=== PATIENT | male | born 1940 | race Caucasian/White ===

== ENCOUNTER 2016-05-05 12:34 | Inpatient (IN) | payer OTHER ==
[~2016-05-05] VITALS: Ht 172.7 cm; Wt 136.3 kg
[2016-05-05] VITALS (7 sets, daily range): BP systolic 131–177; BP diastolic 79–123; PULSE 69–92; TEMP 36.3–36.5; O2SAT 90–98; BMI 45.6
[~2016-05-05 12:34] MED LIST: ALBINS NEB; ASPI-428 PO; DEXT1CAP; ELQ25 PO; FRS/40 PO; ISOS120T5 PO; LIDO5OIN EX; METO50TA7 PO; POTA20TA16 PO; SIMV20TA2 PO; VNTHFA/IN INH
[2016-05-05 13:35] LABS: BASO % 0.3 %; BASO ABS # 0.04 K/uL (0-0.2); COMPLETE YES; EOS % 0.9 %; HEMATOCRIT 46.3 % (42-52); IG% 0.5 %; LYMPH % 9.7 %; LYMPH ABS # 1.13 K/uL (1.2-3.4); MEAN CELL VOLUME 90.6 fL (80-100); MEAN CORPUSCULAR HGB CONC 30.9 g/dl (32-36); MEAN PLATELET VOLUME 9.4 fL (7.4-10.4); MONO % 6.5 %; NEUT % 82.1 %; PLATELET COUNT 207 K/uL (130-400); RED BLOOD COUNT 5.11 M/uL (4.7-6.1); WHITE BLOOD COUNT 11.64 K/uL (4.8-10.8)
--- NOTE | 2016-05-05 13:44 | DIAGNOSTIC IMAGING REPORT ---
CHEST ONE VIEW PORTABLE CLINICAL HISTORY: Shortness of breath. Respiratory distress. COMPARISON STUDY: Chest radiograph February 17, 2016. FINDINGS: Lung volumes are diminished. There is no pneumothorax. Note is made of bilateral pleural effusions, right larger than left. There are associated bibasilar opacities. Right perihilar opacity is present. There is pulmonary vascular congestion with pulmonary edema. IMPRESSION: 1. Findings suggestive of pulmonary edema. 2. Small to moderate right and small left pleural effusions. 3. Bibasilar and right perihilar opacities. Pulmonary edema or atelectasis is favored although consolidation could appear similar. Electronically signed by: Blair Arias M.D. 05/05/2016 1:43 PM Dictated Date/Time: 05/05/2016 1:41 PM
[2016-05-05] MEDS ORDERED: FUROSEMIDE 40 MG/4 ML VIAL IV STA ×2 (13:58→14:09)
[2016-05-05] MEDS ORDERED: FLUT1INH INH (14:08)
--- NOTE | 2016-05-05 14:13 | EMERGENCY ROOM VISIT NOTE ---
History Report prepared by Sary: Nery Williamson Under the Supervision of: Dr. Chhaya Zhu M.D. First contact with patient: 13:58 Chief Complaint: RESPIRATORY PROBLEMS Stated Complaint: RESPIRATORY DISTRESS Nursing Triage Summary: Pt brought in via ambulance ALS from Dr. Rizzo's office. The pt was seeing Dr. Rizzo's PA for an exacerbation of his respiratory issues. Pt has a history of COPD and CHF. Dr. Rizzo's PA called 911 for acute respiratory distress. The pt was very short of breath with exertion and pulse ox was 88 on 3lpm. The PA noted that there is also an increase in the pts bilateral lower extremity edema. Pt told EMS that he noticed that its been harder to breath the last 3 days. Pt stated that he becomes very short of breath with walking. The pt also stated that he has had a productive cough for the last week. Pt wears 3 lpm of oxygen at home. Pt denies any nausea/vomiting/diarrhea. Pts vitals were stable en route. History of Present Illness The patient is a 75 year old male who presents to the Emergency Room via ALS from Dr. Rizzo's office with complaints of worsening shortness of breath over the past 3 days. His breathing difficulties are worse with exertion. He also becomes lightheaded with exertion. He has had an increased cough over the past week. The patient has a history of CHF and COPD and is on 3L oxygen at home. He typically cannot lay flat. The patient was initially seen by a PA at Dr. Rizzo 's office this afternoon for his symptoms and he was referred to the ED because he was hypoxic. His pulse ox was 88 on 3L oxygen. He also seemed to have increased bilateral lower extremity swelling. Per patient's , the patient had a fever 3 days ago. He takes baby aspirin daily. He denies chest pain or other complaints. Source of History: patient Onset: 3 days ago Position: other (respiratory ) Timing: worsening Modifying Factors (Worsening): exertion Associated Symptoms: + cough, No chest pain Note: Other symptoms: lightheadedness, lower extremity swelling Review of Systems See HPI for pertinent positives & negatives. A total of 10 systems reviewed and were otherwise negative. Past Medical & Surgical Medical Problems: (1) Atrial fibrillation (2) CHF (congestive heart failure) (3) CHF exacerbation (4) COPD (chronic obstructive pulmonary disease) (5) Hyperlipidemia (6) Myocardial infarction (7) Pneumonia Family History Diabetes mellitus Hypertension Kidney disease Social History Smoking Status: Former Smoker Drug Use: none Marital Status: Occupation Status: disabled Current/Historical Medications Scheduled Albuterol Hfa (Ventolin Hfa), 2 PUFFS INH Q4 Albuterol Sulf (Albuterol Sulfate), NEB Q4 Apixaban (Eliquis), 2.5 MG PO BID Aspirin (Ecotrin Low Strength), 1 TAB PO DAILY Fluticasone Furoate-Vilanterol (Breo Ellipta), 1 PUFF INH DAILY Furosemide (Lasix), 80 MG PO DAILY Isosorbide Mononitrate Ext Rel (Imdur Ext Rel), 120 MG PO QAM Lidocaine (Lidocaine Guille), 5 % EX DIRECTED Metoprolol Succ (Toprol Xl) (Toprol-Xl), 1 TAB PO DAILY Potassium Ext Rel (Klor-Con), 10 MEQ PO DAILY Simvastatin (Zocor), 1 TAB PO DAILY Allergies Coded Allergies: No Known Allergies (Unverified , 05/05/16) Physical Exam Vital Signs Date Time Temp Pulse Resp B/P Pulse Ox O2 Delivery O2 Flow Rate FiO2 05/05/16 13:00 94 Nasal Cannula 4.0 05/05/16 12:57 36.8 64 26 175/88 91 Nasal Cannula 3.0 05/05/16 12:53 70 05/05/16 12:51 Nasal Cannula 3.0 91 Physical Exam Vital signs reviewed. General: Malodorous and disheveled 75 year old male, obese, in no significant distress, on nasal canula oxygen. HEENT: No scleral icterus, PERRLA, neck supple. Atraumatic. Cardiovascular: Regular rate and rhythm, no extra sounds. Pulmonary: Crackles at the bases to auscultation bilaterally, normal work of breathing. Abdomen: Soft, nontender, nondistended, positive bowel sounds, large abdominal hernia. Musculoskeletal: Atraumatic, no peripheral edema. Neurologic: Patient awake alert and oriented x 3, full strength in all 4 extremities. Cranial nerves 2 through 12 grossly intact. Skin: Warm, dry, no rash Medical Decision & Procedures ER Provider Diagnostic Interpretation: Radiology results as stated below per my review and radiologist interpretation: CHEST ONE VIEW PORTABLE CLINICAL HISTORY: Shortness of breath. Respiratory distress. COMPARISON STUDY: Chest radiograph February 17, 2016. FINDINGS: Lung volumes are diminished. There is no pneumothorax. Note is made of bilateral pleural effusions, right larger than left. There are associated bibasilar opacities. Right perihilar opacity is present. There is pulmonary vascular congestion with pulmonary edema. IMPRESSION: 1. Findings suggestive of pulmonary edema. 2. Small to moderate right and small left pleural effusions. 3. Bibasilar and right perihilar opacities. Pulmonary edema or atelectasis is favored although consolidation could appear similar. Electronically signed by: Blair Arias M.D. 05/05/2016 1:43 PM Dictated Date/Time: 05/05/2016 1:41 PM Laboratory Results Test 05/05/16 13:20 05/05/16 13:28 Estimated Average Glucose 114 mg/dl Hemoglobin A1c 5.6 % (4.5-5.6) Total Bilirubin 1.1 mg/dl (0.2-1) Aspartate Amino Transf (AST/SGOT) 15 U/L (15-37) Alanine Aminotransferase (ALT/SGPT) 18 U/L (12-78) Alkaline Phosphatase 111 U/L (45-117) Total Protein 6.7 gm/dl (6.4-8.2) Albumin 2.7 gm/dl (3.4-5.0) Globulin 4.0 gm/dl (2.5-4.0) Albumin/Globulin Ratio 0.7 (0.9-2) Bedside Troponin I 0.020 ng/ml (0-0.045) Laboratory results per my review. Medications Administered Medications (Trade) Dose Ordered Sig/Veronica Route Start Time Stop Time Status Last Admin Dose Admin Furosemide (Lasix Inj) 40 mg NOW STAT IV 05/05/16 13:58 05/05/16 13:59 DC 05/05/16 13:58 40 MG ECG Indication: SOB/dyspnea Rate (beats per minute): 64 Rhythm: other (likely sinus rhythm) Findings: 1st degree AV block, Q waves (Inferior), no ectopy ED Course 1400: Past medical records reviewed. The patient was evaluated in room C10. A complete history and physical examination was performed. I discussed laboratory and radiographic results with the patient. He verbalized agreement of the treatment plan. 1409: Ordered Lasix Inj 40 mg IV x2. 1410: I discussed the case with Dr. Swanson - [facility] [place] [facility]. The patient will be evaluated for further management. Medical Decision Differential diagnosis: Etiologies such as infections, reactive airway disease, pneumonia, pneumothorax , COPD, CHF, cardiac ischemia, pulmonary embolism, musculoskeletal, gastrointestinal, as well as others were entertained. This patient was evaluated and appeared to be in no significant distress. IV access was obtained and laboratory work was drawn. The patient is found to have some congestive failure. He was given IV Lasix 40 mg. EKG reveals a first -degree AV block with old ischemic injury, no acute injury. Laboratory work reveals a creatinine of 2.3. Patient has long-standing COPD and CHF. Multiple comorbidities otherwise. He will be evaluated by the hospitalist service for further management. He and his are aware of the plan and agree. Consults Time Called: 1405 Consulting Physician: Dr. Kiki Lagunas [facility] [place] Returned Call: 1410 I discussed the case with him. The patient will be evaluated for further management. Impression Primary Impression: CHF (congestive heart failure) Scribe Attestation The scribe's documentation has been prepared under my direction and personally reviewed by me in its entirety. I confirm that the note above accurately reflects all work, treatment, procedures, and medical decision making performed by me. Departure Information Dispostion Being Evaluated By Hospitalist Referrals Umang Rizzo M.D. (PCP) Patient Instructions My [facility] Problem Qualifiers Primary Impression: CHF (congestive heart failure) Congestive heart failure type: unspecified congestive heart failure type Congestive heart failure chronicity: acute Qualified Codes: I50.9 - Heart failure, unspecified
[2016-05-05] MEDS ORDERED: ONDANSETRON INJ 2 MG/ML 2 ML VIAL IV PRN (14:30)
[2016-05-05] MEDS ORDERED: ACETAMINOPHEN 325 MG TAB PO PRN (14:30)
[2016-05-05] MEDS ORDERED: NITROGLYCERIN 0.4 MG SL PER TAB CHARGE SL PRN (14:30)
[2016-05-05] MEDS ORDERED: ZOLPIDEM TARTRATE 5 MG TAB PO PRN (14:30)
[2016-05-05 14:57] LABS: ALB/GLOB RATIO 0.7 (0.9-2); BUN/CREATININE RATIO 15.5 (10-20); CALCIUM 8.9 mg/dl (8.5-10.1); CREATININE 2.3 mg/dl (0.60-1.40); POTASSIUM 4.4 mmol/L (3.5-5.1)
[2016-05-05] MEDS ORDERED: LEVALBUTEROL/IPRATROPIUM NEB INH SCH (15:00)
[2016-05-05] MEDS ORDERED: VANCOMYCIN INJ 2,000 MG in SODIUM CHLORIDE 0.9% 500ML 500 ML IV SCH (15:30)
--- NOTE | 2016-05-05 15:52 | Pharmacy Progress Note ---
Pharmacy Antibiotic Consult Date of Service: May 05, 2016. Pharmacy Dosing Scope Pharmacy is consulted to initiate vancomycin, Zosyn, and Levaquin IV dosing therapy, order appropriate labs and adjust drug dose/frequency. Subjective The patient is a 75 year old male admitted on 05/05/16 with extreme shortness of breath, several day hx of productive cough. Hx of COPD & CHF. Objective Height (Feet): 5 Height (Inches): 8.00 Weight (Kilograms): 136.000 Lab Results (24hrs): Laboratory Tests Test 05/05/16 13:20 BUN/Creatinine Ratio 15.5 Blood Urea Nitrogen 36 mg/dl Creatinine 2.30 mg/dl White Blood Count 11.64 K/uL Red Blood Count 5.11 M/uL Hemoglobin 14.3 g/dL Hematocrit 46.3 % Mean Corpuscular Volume 90.6 fL Mean Corpuscular Hemoglobin 28.0 pg Mean Corpuscular Hemoglobin Concent 30.9 g/dl Platelet Count 207 K/uL Mean Platelet Volume 9.4 fL Neutrophils (%) (Auto) 82.1 % Lymphocytes (%) (Auto) 9.7 % Monocytes (%) (Auto) 6.5 % Eosinophils (%) (Auto) 0.9 % Basophils (%) (Auto) 0.3 % Neutrophils # (Auto) 9.54 K/uL Lymphocytes # (Auto) 1.13 K/uL Monocytes # (Auto) 0.76 K/uL Eosinophils # (Auto) 0.11 K/uL Basophils # (Auto) 0.04 K/uL Assessment & Plan Pt brought in via ambulance ALS from Dr. Rizzo's office. The pt was seeing Dr. Rizzo's PA for an exacerbation of his respiratory issues. Pt has a history of COPD and CHF. The pt was very short of breath with exertion and pulse ox was 88 on 3lpm. Bilateral pleural effusions on chest x-ray. Vancomycin: will load conservatively due to poor renal fx and obtain random level with am labs. Further dosing after that. Loading dose: 2000 mg IV X 1 dose (~15mg/kg) Goal peak level estimate: between 30 - 40 mcg/mL. Goal trough level estimate: between 15 - 20 mcg/mL for lung penetration. Random level has been ordered for: 05/06 w/ AM labs. Zosyn 4.5gm IV q 8 hrs extended infusion for BMI > 35kg/m2. Levaquin 750mg IV q 48h for CrCl 20-49ml/min. Pharmacy will continue to follow and will adjust dose/frequency as necessary. Thank you
[2016-05-05] MEDS ORDERED: LEVOFLOXACIN CONSULT ACTIVE PRN (16:00)
[2016-05-05] MEDS ORDERED: PIPERACILL/TAZOBAC CONSULT ACTIVE PRN (16:00)
[2016-05-05] MEDS ORDERED: VANCOMYCIN CONSULT ACTIVE PRN (16:00)
[2016-05-05] MEDS ORDERED: FUROSEMIDE 40 MG/4 ML VIAL ONE (16:32)
[2016-05-05] MEDS ORDERED: PIPERACILL/TAZOBAC IV 4.5 GM in DEXTROSE 5% 100ML IV ONE (18:00)
[2016-05-05] MEDS ORDERED: LEVOFLOXACIN / D5W 750 MG in PREMIXED IN D5W 150 ML IV SCH (19:00)
[2016-05-05] MEDS: LEVALBUTEROL 1.25MG/0.5ML NEB INH SCH (20:29)
[2016-05-05] MEDS: IPRATROPIUM BROMIDE NEB SOLN 0.02% 2.5 ML VIAL INH SCH (20:29)
--- NOTE | 2016-05-05 20:46 | History and Physical ---
History & Physical Date & Time of Service: May 05, 2016 at 20:33 Chief Complaint: Chf Exacerbation Pneumonia Primary Care Physician: Umang Rizzo M.D. History of Present Illness Source: patient The patient was brought in via ALS from Dr. Rizzo's office where a PA was seeing him and called 911 for acute respiratory distress. His pulse ox reported to be 88% on 3 L at that time and he was very short of breath. The patient reports that he has had a worsening of his lower extremity edema bilaterally and worsening shortness of breath over the past 3 days. He's had a productive cough for the past week, and does wear his nasal cannula 3 L O2 continually at home. He has not had any recent travel, and is not aware of any sick exposures. Past Medical/Surgical History Medical Problems: (1) CHF (congestive heart failure) Status: Chronic (2) COPD (chronic obstructive pulmonary disease) Status: Chronic Family History Diabetes mellitus Hypertension Kidney disease Social History Smoking Status: Former Smoker Smokeless Tobacco Use: No Alcohol Use: none Drug Use: none Marital Status: Housing status: lives with family Occupational Status: retired, disabled Multi-Drug Resistant Organisms History of MDRO: No Allergies Coded Allergies: No Known Allergies (Unverified , 05/05/16) Home Medications Scheduled Albuterol Hfa (Ventolin Hfa), 2 PUFFS INH Q4 Albuterol Sulf (Albuterol Sulfate), NEB Q4 Apixaban (Eliquis), 2.5 MG PO BID Aspirin (Ecotrin Low Strength), 1 TAB PO DAILY Fluticasone Furoate-Vilanterol (Breo Ellipta), 1 PUFF INH DAILY Furosemide (Lasix), 80 MG PO DAILY Isosorbide Mononitrate Ext Rel (Imdur Ext Rel), 120 MG PO QAM Lidocaine (Lidocaine Guille), 5 % EX DIRECTED Metoprolol Succ (Toprol Xl) (Toprol-Xl), 1 TAB PO DAILY Potassium Ext Rel (Klor-Con), 10 MEQ PO DAILY Simvastatin (Zocor), 1 TAB PO DAILY Review of Systems The patient denies vision change, hearing change, sore throat, fevers, chills, sweats, weight change, fatigue, nausea, vomiting, abdominal pain, pelvic pain, blood in urine or stool, dysuria, urinary frequency or urgency, lightheadedness , dizziness, headache, memory loss, rash, abnormal bruising or bleeding, imbalance, focal weakness, numbness or tingling in arms or legs, arthralgias or myalgias, back or neck pain, night sweats, or allergy symptoms. The review of systems is otherwise negative other than for that already noted above, and at least 10 systems have been reviewed. Physical Exam Vital Signs Date Time Temp Pulse Resp B/P Pulse Ox O2 Delivery O2 Flow Rate FiO2 05/05/16 18:51 36.3 82 20 153/79 94 Nasal Cannula 3.0 05/05/16 18:39 153/79 05/05/16 18:32 36.5 92 17 131/86 98 Room Air 05/05/16 17:10 36.3 82 20 177/123 94 Nasal Cannula 3.0 05/05/16 17:03 36.8 67 16 175/88 92 05/05/16 14:48 67 16 175/88 92 Room Air 05/05/16 13:00 94 Nasal Cannula 4.0 05/05/16 12:57 36.8 64 26 175/88 91 Nasal Cannula 3.0 05/05/16 12:53 70 05/05/16 12:51 Nasal Cannula 3.0 91 The patient is awake, well-developed and adequately nourished, alert and oriented 3, normocephalic and atraumatic, lying in bed and in no acute distress after receiving treatment in the ED. HEENT--PERRL, EOMI, mucous membranes and oropharynx dry. Neck--supple, no JVD or bruits, thyroid normal, trachea midline, no adenopathy. Heart--normal S1 and S2, no extra beats, no murmurs, rubs or gallops. Lungs--wheezes and rhonchi bilaterally, mild respiratory distress, no accessory muscle use. Abdomen--normal bowel sounds and soft, nontender and nondistended, no hernias or masses, no organomegaly. Morbidly obese. Extremities--no cyanosis, clubbing. There is bilaterally pretibial 2+ pitting Edema. There are good distal pulses b/l. Dermatologic--chronic venous stasis changes bilateral lower extremities Neurologic--cranial nerves II through XII grossly intact, motor and sensory examination normal. Rheumatologic--normal range of motion, nontender, muscles and joints for age Psychiatric--normal affect. Diagnostics Laboratory Results Results Past 24 Hours Test 05/05/16 13:20 05/05/16 13:28 05/05/16 19:17 Range/Units White Blood Count 11.64 4.8-10.8 K/uL Red Blood Count 5.11 4.7-6.1 M/uL Hemoglobin 14.3 14.0-18.0 g/dL Hematocrit 46.3 42-52 % Mean Corpuscular Volume 90.6 80-100 fL Mean Corpuscular Hemoglobin 28.0 25-34 pg Mean Corpuscular Hemoglobin Concent 30.9 32-36 g/dl Platelet Count 207 130-400 K/uL Mean Platelet Volume 9.4 7.4-10.4 fL Neutrophils (%) (Auto) 82.1 % Lymphocytes (%) (Auto) 9.7 % Monocytes (%) (Auto) 6.5 % Eosinophils (%) (Auto) 0.9 % Basophils (%) (Auto) 0.3 % Neutrophils # (Auto) 9.54 1.4-6.5 K/uL Lymphocytes # (Auto) 1.13 1.2-3.4 K/uL Monocytes # (Auto) 0.76 0.11-0.59 K/uL Eosinophils # (Auto) 0.11 0-0.5 K/uL Basophils # (Auto) 0.04 0-0.2 K/uL RDW Standard Deviation 50.1 36.4-46.3 fL RDW Coefficient of Variation 15.1 11.5-14.5 % Immature Granulocyte % (Auto) 0.5 % Immature Granulocyte # (Auto) 0.06 0.00-0.02 K/uL Sodium Level 147 136-145 mmol/L Potassium Level 4.4 3.5-5.1 mmol/L Chloride Level 105 98-107 mmol/L Carbon Dioxide Level 40 21-32 mmol/L Anion Gap 2.0 3-11 mmol/L Blood Urea Nitrogen 36 7-18 mg/dl Creatinine 2.30 0.60-1.40 mg/dl Est Creatinine Clear Calc Drug Dose 38.0 ml/min Estimated GFR () 31.3 Estimated GFR (Non- 27.0 BUN/Creatinine Ratio 15.5 10-20 Random Glucose 95 70-99 mg/dl Calcium Level 8.9 8.5-10.1 mg/dl Total Bilirubin 1.1 0.2-1 mg/dl Aspartate Amino Transf (AST/SGOT) 15 15-37 U/L Alanine Aminotransferase (ALT/SGPT) 18 12-78 U/L Alkaline Phosphatase 111 45-117 U/L Total Protein 6.7 6.4-8.2 gm/dl Albumin 2.7 3.4-5.0 gm/dl Globulin 4.0 2.5-4.0 gm/dl Albumin/Globulin Ratio 0.7 0.9-2 Bedside Troponin I 0.020 0-0.045 ng/ml Bedside Glucose 274 70-99 mg/dl Microbiology Results 05/05/16 MRSA DNA Surveillance Screen - Final, Complete Specimen Negative for MRSA by DNA Probe Diagnostic Radiology Patient Name: ISAURA DICKINSON Unit Number: [id number] Dictated: 05/05/161340 Transcribed: 05/05/161340 JA Printed Date/Time: [~ rep prt dt]/[~ rep prt tm] [~ rep ct labl] - [~ rep ct ivnm] [facility] [place] [address] Dictated: 05/05/161340 Transcribed: 05/05/161340 JA Printed Date/Time: [~ rep prt dt]/[~ rep prt tm] [~ rep ct labl] - [~ rep ct ivnm] CHEST ONE VIEW PORTABLE CLINICAL HISTORY: Shortness of breath. Respiratory distress. COMPARISON STUDY: Chest radiograph February 17, 2016. FINDINGS: Lung volumes are diminished. There is no pneumothorax. Note is made of bilateral pleural effusions, right larger than left. There are associated bibasilar opacities. Right perihilar opacity is present. There is pulmonary vascular congestion with pulmonary edema. IMPRESSION: 1. Findings suggestive of pulmonary edema. 2. Small to moderate right and small left pleural effusions. 3. Bibasilar and right perihilar opacities. Pulmonary edema or atelectasis is favored although consolidation could appear similar. Electronically signed by: Blair Arias M.D. 05/05/2016 1:43 PM Dictated Date/Time: 05/05/2016 1:41 PM The status of this report is Signed. Draft = Not yet reviewed or approved by Radiologist. Signed = Reviewed and approved by Radiologist. <AttendingPhy></AttendingPhy> <FamilyPhy>Umang Rizzo M.D.</FamilyPhy> < PrimaryPhy>Umang Rizzo M.D.</PrimaryPhy> <UnitNumber>[id number]</UnitNumber > <VisitNumber>[id number]</VisitNumber> <PatientName>ISAURA DICKINSON</ PatientName> <DateOfBirth>1940</DateOfBirth> <Location>[facility]</Location> < ServiceDate>05/05/16</ServiceDate> <MNE>ESINDI</MNE> <OrderingPhy>ED, PROTOCOL</ OrderingPhy> <OrderingPhyMNE>f rep ord dr tam</OrderingPhyMNE> <DictatingPhyMNE> f rep dict dr tam</DictatingPhyMNE> <CCListMNE>f rep ct mne</CCListMNE> < AdmittingPhyMNE>f pt admit dr tam</AdmittingPhyMNE> <AttendingPhyMNE>f pt attend dr tam</AttendingPhyMNE> <ConsultingPhyMNE>f pt consult dr tam</ConsultingPhyMNE> <FamilyPhyMNE>f pt fam dr tam</FamilyPhyMNE> <OtherPhyMNE>f pt other dr tam</OtherPhyMNE> < PrimaryPhyMNE>f pt prim care dr tam</PrimaryPhyMNE> <ReferringPhyMNE>f pt referring dr tam</ReferringPhyMNE> EKG EKG shows atrial fibrillation at 64 bpm, old inferior wall [place], no change compared to 02/19/2016. Impression Assessment and Plan Acute respiratory failure with hypoxia due to CHF exacerbation, and pneumonia. CHF exacerbation/atrial fibrillation/history of myocardial infarction--the patient will be admitted to the telemetry unit, for serial cardiac enzymes, cardiac rhythm monitoring and a 2-D echocardiogram with Dopplers. We'll continue Eliquis 2.5 mg by mouth twice a day, enteric-coated aspirin 81 mg by mouth daily, Imdur extended release 120 mg by mouth every morning, metoprolol succinate 50 mg by mouth daily. We'll change furosemide 80 mg by mouth daily to 40 mg IV twice a day with first dose today, and we will continue potassium extended release 10 mEq by mouth daily. We'll follow serial BMP and magnesium levels in the a.m. Pneumonia/COPD exacerbation--Vancomycin IV per renal dosing, Zosyn 3.375 mg IV every 8 hours, levofloxacin 500 mg IV every 24 hours, guaifenesin extended release 600 mg by mouth twice a day, nasal cannula 3 L of oxygen titrating to keep pulse ox greater than or equal to 92%., And Xopenex with Atrovent nebulizer to use every 6 hours while awake and every 2 hours when necessary. We will hold albuterol HFA, albuterol nebulizers, and Breo Ellipta. Hypercholesterolemia--continue simvastatin 20 mg by mouth daily. Level of Care Telemetry Advanced Directives Existing Advance Directive: No Existing Living Will: No Existing Power of Purchasing Analyst: No Resuscitation Status FULL RESUSCITATION VTE Prophylaxis VTE Risk Assessment Done? Y/N: Yes Risk Level: Moderate
[2016-05-05] MEDS ORDERED: INSULIN GLARGINE PER UNIT 5 UNITS in SYRINGE 0 ML SC STA (20:48)
[2016-05-05] MEDS ORDERED: DEXTROSE 50% 50 ML SYR IV PRN (21:15)
[2016-05-05] MEDS ORDERED: GLUCOSE 40% GEL 15 GM TUBE PO PRN (21:15)
[2016-05-05] MEDS ORDERED: GLUCOSE 10 TABS/TUBE PO PRN (21:15)
[2016-05-05] MEDS ORDERED: GLUCAGON FOR INJ 1 MG VIAL SQ PRN (21:15)
[2016-05-05] MEDS: FUROSEMIDE INJ 40 MG in SYRINGE 0 ML IV SCH (21:28)
[2016-05-05] MEDS: GUAIFENESIN 600 MG TABCR PO SCH (21:29)
[2016-05-05] MEDS: APIXABAN 2.5 MG TAB PO SCH (21:29)
[2016-05-05] MEDS: INSULIN ASPART 100 UNITS/ML 3 ML PEN SC SCH (21:30)
[2016-05-06] VITALS (12 sets, daily range): BP systolic 112–171; BP diastolic 72–86; PULSE 55–92; TEMP 36.4–36.8; O2SAT 90–96; Ht 172.7 cm; Wt 136.3 kg
[2016-05-06] MEDS: PIPERACILL/TAZOBAC IV 4.5 GM in DEXTROSE 5% 100ML 100 ML IV SCH ×2 (00:09→08:24)
[2016-05-06] MEDS: IPRATROPIUM BROMIDE NEB SOLN 0.02% 2.5 ML VIAL INH SCH ×4 (01:25→19:13)
[2016-05-06] MEDS: LEVALBUTEROL 1.25MG/0.5ML NEB INH SCH ×4 (01:25→19:13)
[2016-05-06 04:42] LABS: BASO % 0.4 %; BASO ABS # 0.04 K/uL (0-0.2); COMPLETE YES; EOS % 1.2 %; HEMATOCRIT 43.3 % (42-52); IG% 0.4 %; LYMPH % 4.3 %; LYMPH ABS # 0.47 K/uL (1.2-3.4); MEAN CELL VOLUME 91.2 fL (80-100); MEAN CORPUSCULAR HEMOGLOBIN 28.2 pg (25-34); MEAN CORPUSCULAR HGB CONC 30.9 g/dl (32-36); MEAN PLATELET VOLUME 8.8 fL (7.4-10.4); MONO % 5.9 %; NEUT % 87.8 %; PLATELET COUNT 153 K/uL (130-400); RED BLOOD COUNT 4.75 M/uL (4.7-6.1); WHITE BLOOD COUNT 11.02 K/uL (4.8-10.8)
[2016-05-06 04:52] LABS: INR 1.2 (0.9-1.1); PARTIAL THROMBOPLASTIN RATIO 1.2; PROTHROMBIN TIME (PATIENT) 13.2 SECONDS (9.0-12.0)
[2016-05-06 04:59] LABS: BUN/CREATININE RATIO 15.5 (10-20); CALCIUM 8.3 mg/dl (8.5-10.1); CREATININE 2.5 mg/dl (0.60-1.40); MAGNESIUM 2.3 mg/dl (1.8-2.4); POTASSIUM 4.1 mmol/L (3.5-5.1)
[2016-05-06 06:25] LABS: ESTIMATED AVERAGE GLUCOSE 114 mg/dl; HA1C FLAG Normal (Normal)
--- NOTE | 2016-05-06 07:50 | Clinical Documentation Query ---
CLINICAL DOCUMENTATION QUERY 75-y/o male who presents with CHF exacerbation, COPD exacerbation, and pneumonia. Query #1/2 In your clinical opinion is this patient being managed for: ( ) Acute on chronic diastolic (preserved EF) heart failure treated with IV Lasix ( ) Other explanation of clinical findings (Please Explain) ( ) Unable to determine (Please Define) ( ) Need to Discuss ( X ) Not Agree The medical record reflects the following clinical findings, treatment, and risk factors. Clinical Indicators: CHF exacerbation per H&P. Old records from 02/09/16 stated patient has diastolic dysfunction. The medical record documentation is now expected to include definitive and explicit description of the patient's heart failure; vague terms such as "heart failure," ventricular dysfunction," and "CHF" may not fully capture the physician's intended level of severity. Treatment: IV Lasix, telemetry, I/O's, daily weights, ECG's, Cardiac markers, Risk Factors: Age, diastolic dysfunction per 02/19/16 cardiology summary of Echo of same day. Query #2/2 In your clinical opinion is this patient being managed for: ( ) Chronic hypoxic respiratory failure ( ) Other explanation of clinical findings (Please Explain) ( ) Unable to determine (Please Define) ( ) Need to Discuss ( X ) Not Agree The medical record reflects the following clinical findings, treatment, and risk factors. Clinical Indicators: acute respiratory failure on admission. Wears home O2 at 3L. Treatment: Continued on O2 Risk Factors: Age, COPD, CHF and underlying pneumonia. Please clarify and document your clinical opinion in the progress notes and discharge summary. Terms such as "probable", "suspected", "likely", "questionable", "possible", or "still to be ruled out" are acceptable. IF IN AGREEMENT, YOU MUST DOCUMENT ABOVE DIAGNOSTIC STATEMENT IN DAILY PROGRESS NOTES AND DISCHARGE SUMMARY. This document is not part of the patient's record. Thank You, Valeriano Bills, RN [phone]
[2016-05-06] MEDS: POTASSIUM CHLORIDE 10 MEQ TABCR PO SCH (08:25)
[2016-05-06] MEDS: ASPIRIN 81 MG ECTAB PO SCH (08:25)
[2016-05-06] MEDS: ISOSORBIDE MONONITRATE 60 MG TABCR PO SCH (08:26)
[2016-05-06] MEDS: SIMVASTATIN 20 MG TAB PO SCH (08:26)
[2016-05-06] MEDS: GUAIFENESIN 600 MG TABCR PO SCH ×2 (08:27→21:16)
[2016-05-06] MEDS: INSULIN ASPART 100 UNITS/ML 3 ML PEN SC SCH ×4 (08:32→21:00)
[2016-05-06] MEDS: APIXABAN 2.5 MG TAB PO SCH ×2 (08:33→21:16)
[2016-05-06] MEDS: FUROSEMIDE INJ 40 MG in SYRINGE 0 ML IV SCH (08:51)
[2016-05-06] MEDS ORDERED: METOPROLOL SUCC 50MG EXT REL TAB PO SCH (09:00)
--- NOTE | 2016-05-06 09:41 | Pharmacy Progress Note ---
Pharmacy Antibiotic Prog Note Date of Service: May 06, 2016. Subjective: The patient has currently received Vancomycin 2000 mg (15mg/kg) IV x 1 dose yesterday at 1610. The patient is currently on day # 2 of Vancomycin IV therapy for pulmonary source of infection. MRSA swab negative. Objective: Height (Feet): 5 Height (Inches): 8.00 Weight (Kilograms): 137.200 Levels: Item Value Date Time Random Vancomycin Level 15.8 mcg/ml 05/06/16 0435 Lab Results (24hrs): Laboratory Tests Test 05/05/16 13:20 05/06/16 04:35 BUN/Creatinine Ratio 15.5 15.5 Blood Urea Nitrogen 36 mg/dl 39 mg/dl Creatinine 2.30 mg/dl 2.50 mg/dl White Blood Count 11.64 K/uL 11.02 K/uL Red Blood Count 5.11 M/uL 4.75 M/uL Hemoglobin 14.3 g/dL 13.4 g/dL Hematocrit 46.3 % 43.3 % Mean Corpuscular Volume 90.6 fL 91.2 fL Mean Corpuscular Hemoglobin 28.0 pg 28.2 pg Mean Corpuscular Hemoglobin Concent 30.9 g/dl 30.9 g/dl Platelet Count 207 K/uL 153 K/uL Mean Platelet Volume 9.4 fL 8.8 fL Neutrophils (%) (Auto) 82.1 % 87.8 % Lymphocytes (%) (Auto) 9.7 % 4.3 % Monocytes (%) (Auto) 6.5 % 5.9 % Eosinophils (%) (Auto) 0.9 % 1.2 % Basophils (%) (Auto) 0.3 % 0.4 % Neutrophils # (Auto) 9.54 K/uL 9.69 K/uL Lymphocytes # (Auto) 1.13 K/uL 0.47 K/uL Monocytes # (Auto) 0.76 K/uL 0.65 K/uL Eosinophils # (Auto) 0.11 K/uL 0.13 K/uL Basophils # (Auto) 0.04 K/uL 0.04 K/uL Micro Results: Item Value Date Time MRSA DNA Surveillance Screen - Final Complete 05/05/16 1830 Nasal Specimen Negative for MRSA by DNA Probe Recent Pertinent Medications: Zosyn 4.5g IV Q8H for CrCl > 20ml/min and obese patient Levaquin 750mg IV Q48H for CrCl 20-49ml/min Assessment & Plan: Patient lives with family, no recent travel or encounters with sickness, MRSA negative - possibly deescalation, as patient is also on IV Levaquin and Zosyn. Will follow-up with provider after patient is seen today. This Vancomycin random drug level of 15.8mcg/ml is Therapeutic and patient requires re-dosing. This level was drawn 12 hours after loading dose of 15mg/kg was given. I will start patient on 12.5mg/kg dosing for obesity at Q14H interval , as patient is not yet at steady state and is at risk for accumulation due to obesity, but patient is also at lower end of goal trough range, I would prefer patient to be closer to 20mcg/ml for pulmonary penetration of drug. Start Vancomycin 1700 mg (12.5mg/kg) IV every 14 hours. Goal trough level estimate: between 15 - 20 mcg/mL for pulmonary source. Trough level has been ordered for: prior to 1400 dose. I have also placed this 1400 dose on hold, to ensure trough is evaluated by pharmacist prior to hanging this 4th total dose. This level will be drawn prior to 4th total dose, even if therapeutic, may need to pull back as this may be too aggressive for patient's renal function. Pharmacy will continue to follow and will adjust dose/frequency as necessary. Thank you
[2016-05-06] MEDS ORDERED: VANCOMYCIN INJ 1,700 MG in SODIUM CHLORIDE 0.9% 500ML 500 ML IV SCH (10:00)
[2016-05-06] MEDS ORDERED: FUROSEMIDE INJ 40 MG in SYRINGE 0 ML IV SCH (15:00)
--- NOTE | 2016-05-06 15:43 | Progress Note ---
Subjective Date of Service: May 06, 2016. Subjective Pt evaluation today including: conversation w/ patient, conversation w/ family , physical exam, chart review, lab review, review of studies, review of inpatient medication list Patient reports breathing is improved from yesterday. at bedside. He is a somewhat of a poor historian. reports he was treated in [facility] for pneumonia. She also reports he has been coughing both yellow-thick sputum and whitish/foamy sputum, though he hasn't had a fever. He is not a smoker now, former smoker, but still surrounded by family members who smoke around him. Otherwise, no chest pain, no abd pain, no urinary symptoms. Problem List Medical Problems: (1) CHF (congestive heart failure) Status: Chronic (2) CHF exacerbation Status: Acute Review of Systems All Other Systems: Reviewed and Negative Medications Acetaminophen (Tylenol Tab) 650 mg Q4H PRN PO; Start 05/05/16 at 14:30; Stop 06/04/16 at 14:29 Apixaban (Eliquis Tab) 2.5 mg BID PO Last administered on 05/06/16 08:33; Admin Dose 2.5 MG; Start 05/05/16 at 21:00; Stop 06/04/16 at 20:59 Aspirin (Ecotrin Tab) 81 mg DAILY PO Last administered on 05/06/16 08:25; Admin Dose 81 MG; Start 05/06/16 at 09:00; Stop 06/05/16 at 08:59 Dextrose (Dextrose 50% 50ML Syringe) 25-50ML OF 50% DW IV FOR... UD PRN IV; Start 05/05/16 at 21:15; Stop 06/04/16 at 21:14 Furosemide/Syringe (Lasix Inj/ Syringe) 4 ml @ 4 mls/min BID@0800,1500 IV; Start 05/06/16 at 15:00; Stop 06/05/16 at 14:59 Glucagon 1 mg 1 mg UD PRN SQ; Start 05/05/16 at 21:15; Stop 06/04/16 at 21:14 Glucose (Glucose 40% Gel) 15-30 GRAMS 15 GRAMS... UD PRN PO; Start 05/05/16 at 21:15; Stop 06/04/16 at 21:14 Glucose (Glucose Chew Tab) 4-8 Tablets 4 Tabl... UD PRN PO; Start 05/05/16 at 21:15; Stop 06/04/16 at 21:14 Guaifenesin (Mucinex Contr Rel Tab) 600 mg BID PO Last administered on 08:27; Admin Dose 600 MG; Start 05/05/16 at 21:00; Stop 06/04/16 at 20:59 Insulin Aspart (novoLOG ASPART) SLIDING SCALE G... ACHS SC; Start at 21:00; Stop 06/04/16 at 20:59 Ipratropium [place] (Atrovent 0.02% 0.5MG/2.5ML Neb) 0.5 mg Q6R INH Last administered on 05/06/16 14:33; Admin Dose 0.5 MG; Start 05/05/16 at 15:00; Stop 06/04/16 at 14:59 Isosorbide Mononitrate (Imdur Ext Rel Tab) 120 mg QAM PO Last administered on 08:26; Admin Dose 120 MG; Start 05/06/16 at 09:00; Stop 06/05/16 at 08: 59 Levalbuterol (Xopenex 1.25MG/ 0.5ML Neb) 1.25 mg Q6R INH Last administered on 14:33; Admin Dose 1.25 MG; Start 05/05/16 at 15:00; Stop 06/04/16 at 14: 59 Levofloxacin (Consult) 1 ea UD PRN N/A; Start 05/05/16 at 16:00; Stop 06/04/16 at 15:59 Levofloxacin 750 mg/Prmx 150 ml @ 100 mls/hr Q48H IV; Start 05/07/16 at 19:00; Stop 05/11/16 at 18:59 Metoprolol Succinate (Toprol Xl Tab) 50 mg DAILY PO Last administered on 08:26; Admin Dose 50 MG; Start 05/06/16 at 09:00; Stop 06/05/16 at 08:59 Nitroglycerin 0.4 mg 0.4 mg UD PRN SL; Start 05/05/16 at 14:30; Stop 06/04/16 at 14:29 Ondansetron HCl (Zofran Inj) 4 mg Q6H PRN IV; Start 05/05/16 at 14:30; Stop at 14:29 Piperacillin Sod/ Tazobactam Sod (Consult) 1 ea UD PRN N/A; Start 05/05/16 at 16:00; Stop 06/04/16 at 15:59 Piperacillin Sod/ Tazobactam Sod/ Dextrose (Zosyn Iv/D5 100ml) 120 ml @ 30 mls/ hr Q8H IV Last administered on 05/06/16 08:24; Admin Dose 30 MLS/HR; Start at 00:00; Stop 05/12/16 at 23:59 Potassium Chloride (Klor-Con M10) 10 meq DAILY PO Last administered on 08:25; Admin Dose 10 MEQ; Start 05/06/16 at 09:00; Stop 06/05/16 at 08:59 Simvastatin (Zocor Tab) 20 mg DAILY PO Last administered on 05/06/16 08:26; Admin Dose 20 MG; Start 05/06/16 at 09:00; Stop 06/05/16 at 08:59 Zolpidem Tartrate (Ambien Tab) 5 mg HSZ PRN PO; Start 05/05/16 at 14:30; Stop 06/04/16 at 14:29 Objective Vital Signs Date Time Temp Pulse Resp B/P Pulse Ox O2 Delivery O2 Flow Rate FiO2 05/06/16 14:34 55 16 93 Nasal Cannula 3.0 05/06/16 12:00 Nasal Cannula 3.0 05/06/16 11:47 36.4 64 20 130/86 96 3.0 05/06/16 08:30 70 123/72 05/06/16 08:00 91 Nasal Cannula 3.0 05/06/16 07:48 36.7 63 18 171/79 91 3.0 05/06/16 07:27 84 16 91 Nasal Cannula 3.0 05/06/16 04:31 36.7 92 22 150/85 90 Nasal Cannula 3.0 05/06/16 01:25 88 16 95 Nasal Cannula 3.5 05/05/16 23:34 Nasal Cannula 3.0 05/05/16 23:29 36.4 69 18 152/92 90 05/05/16 20:35 86 16 95 Nasal Cannula 2.0 05/05/16 20:10 Nasal Cannula 3.0 05/05/16 18:51 36.3 82 20 153/79 94 Nasal Cannula 3.0 05/05/16 18:39 153/79 05/05/16 18:32 36.5 92 17 131/86 98 Room Air 05/05/16 17:30 94 Nasal Cannula 3.0 05/05/16 17:10 36.3 82 20 177/123 94 Nasal Cannula 3.0 05/05/16 17:03 36.8 67 16 175/88 92 Physical Exam Comments: nad, sitting up in chair upright no acute cardiorespiratory distress irreg irreg, no murmurs appreciated diminished breath sounds without rhonchi, minimal basilar rales abd soft nt/nd +BS 1+ LE edema b/l cn 2-12 grossly intact Laboratory Results Last 24 Hours Test 05/05/16 19:17 05/05/16 21:18 05/06/16 04:35 05/06/16 07:25 Bedside Glucose 274 mg/dl 114 mg/dl 79 mg/dl White Blood Count 11.02 K/uL Red Blood Count 4.75 M/uL Hemoglobin 13.4 g/dL Hematocrit 43.3 % Mean Corpuscular Volume 91.2 fL Mean Corpuscular Hemoglobin 28.2 pg Mean Corpuscular Hemoglobin Concent 30.9 g/dl Platelet Count 153 K/uL Mean Platelet Volume 8.8 fL Neutrophils (%) (Auto) 87.8 % Lymphocytes (%) (Auto) 4.3 % Monocytes (%) (Auto) 5.9 % Eosinophils (%) (Auto) 1.2 % Basophils (%) (Auto) 0.4 % Neutrophils # (Auto) 9.69 K/uL Lymphocytes # (Auto) 0.47 K/uL Monocytes # (Auto) 0.65 K/uL Eosinophils # (Auto) 0.13 K/uL Basophils # (Auto) 0.04 K/uL RDW Standard Deviation 50.2 fL RDW Coefficient of Variation 15.2 % Immature Granulocyte % (Auto) 0.4 % Immature Granulocyte # (Auto) 0.04 K/uL Prothrombin Time 13.2 SECONDS Prothromb Time International Ratio 1.2 Activated Partial Thromboplast Time 32.0 SECONDS Partial Thromboplastin Ratio 1.2 Sodium Level 147 mmol/L Potassium Level 4.1 mmol/L Chloride Level 104 mmol/L Carbon Dioxide Level 40 mmol/L Anion Gap 3.0 mmol/L Blood Urea Nitrogen 39 mg/dl Creatinine 2.50 mg/dl Est Creatinine Clear Calc Drug Dose 35.0 ml/min Estimated GFR () 28.3 Estimated GFR (Non- 24.4 BUN/Creatinine Ratio 15.5 Random Glucose 95 mg/dl Calcium Level 8.3 mg/dl Magnesium Level 2.3 mg/dl Random Vancomycin Level 15.8 mcg/ml Test 05/06/16 11:31 Bedside Glucose 75 mg/dl 06-MAY-2016 07:04:32 [facility] Atrial fibrillation Low voltage QRS Possible Inferior infarct (cited on or before 19-FEB-2016) Abnormal ECG When compared with ECG of 05-MAY-2016 13:32, No significant change was found Confirmed by MITCH QUEVEDO ([id number]) on 05/06/2016 10:54:22 AM Assessment and Plan 1. Acute decompensated diastolic CHF - EF on last echo was normal - will titrate IV lasix to achieve negative fluid balance of about 500-1000 cc / 24 hrs - i/o, daily weights 2. COPD exacerbation - cont xopenex - MRSA screening negative, will stop Vanco - unlikely aspiration or HCAP with no recent admissions, will stop zosyn - cont levaquin 3. Afib - now with bradycardic episodes as low as 34 and apparently some complaints of lightheadedness - will stop metoprolol po for now, will place a prn metoprolol if becomes tachycardic - will obtain cardiology consult - cont eliquis 4. CKD IIIb - likely - will continue to monitor - for now, will manage acute CHF - may need an increased dose of lasix if not having enough urine output - baseline is around 2.0 - check PVR, isidro if >300 cc retention - avoid nephrotoxins such as NSAIDs, non-emergent contrast studies, & hypotension
[2016-05-06] MEDS ORDERED: NURSING VERBAL MED ORDER ONE (17:45)
[2016-05-06] MEDS ORDERED: METOPROLOL TARTRATE 1 MG/ML VIAL IV PRN (18:00)
[2016-05-06] MEDS: MICONAZOLE NITRATE POWDER 43 GM EXT PRN (18:40)
[2016-05-07] VITALS (10 sets, daily range): BP systolic 96–164; BP diastolic 60–96; PULSE 65–96; TEMP 36.3–36.8; O2SAT 93–99
--- NOTE | 2016-05-07 00:49 | CARDIOLOGY CONSULTATION ---
DATE OF CONSULTATION: 05/06/2016 REASON FOR CONSULTATION: Heart failure, bradycardia. CONSULTATION REQUESTED BY: Dr. Calderón. HISTORY OF PRESENT ILLNESS: Mr. Schreiber is a 75-year-old male with a complex past medical history, known to me from the outpatient setting and prior admissions with a cardiac history remarkable for coronary artery disease status post prior [place] , persistent atrial fibrillation and chronic diastolic heart failure, who was readmitted yesterday in the setting of worsening shortness of breath. Hospital course has been complicated by intermittent bradycardia with questionable symptoms with heart rates down to the 30s and 40s. The patient was previously seen by me approximately 2 months ago and was previously admitted 3 months ago. He states that over the last several weeks, he has noticed worsening shortness of breath similar to his prior symptoms with prior heart failure exacerbation. He has also noted worsening lower extremity edema. He denies any precipitating chest pain, palpitations, fevers, chills. Denies any significant change to his diet. Denies any change in his diuretics. Has been weighing himself but states his scale is not working properly. Due to progressive nature of symptoms, he presented to the ED where he was initially mildly hypoxic, requiring 3 liters of oxygen. He was hemodynamically and electrically stable and was admitted to telemetry. The patient received 40 IV lasix with minimal initial diuresis, although the patient does endorse improvement in symptoms today. He was also started on potential IV antibiotics after chest x-ray showed bilateral airspace opacities. PAST MEDICAL HISTORY: 1. Coronary artery disease status post prior [place]. 2. Chronic diastolic heart failure. 3. Paroxysmal atrial fibrillation. 4. Hypertension. 5. Hyperlipidemia. 6. Chronic renal insufficiency, baseline creatinine approximately 2. 7. Obstructive sleep apnea, on CPAP. 8. Questionable obesity-hypoventilation syndrome. 9. Asthma. 10. Depression. 11. Anxiety. FAMILY HISTORY: Multiple second-degree relatives with coronary artery disease. SOCIAL HISTORY: The patient continues to use chewing tobacco. Denies smoking. Denies any heavy alcohol or illicit drugs. Retired and lives with his . CURRENT MEDICATIONS: Include albuterol, aspirin 81, Eliquis 5 mg b.i.d., furosemide 80 mg daily, isosorbide mononitrate 120 mg q.a.m., fluticasone, vilanterol/Breo inhaler, metoprolol succinate 50 mg daily, potassium, simvastatin 20. ALLERGIES: No known drug allergies. REVIEW OF SYSTEMS: A 10-point review of systems was completed and otherwise negative other than listed in the HPI. PHYSICAL EXAMINATION: GENERAL: The patient appears comfortable. He is obese and appears chronically ill but in no acute distress. HEENT: Sclerae are anicteric. Oropharynx is clear. NECK: Supple. JVD is unable to be assessed due to weight and facial hair. LUNGS: With decreased breath sounds at bases bilaterally. CARDIAC: Distant heart sounds, 2/6 systolic ejection murmur heard best at left upper sternal border. ABDOMEN: Soft, nontender, nondistended, with positive bowel sounds. EXTREMITIES: Warm. He has 2+ right greater than left lower extremity edema with signs of chronic venous stasis. He has intact radial pulses. NEUROLOGIC: Grossly nonfocal. PSYCHIATRIC: He is alert and oriented x3. LABORATORY DATA: WBC 11, hemoglobin 13.4, platelets of 153. INR 1.2. Sodium 147, potassium 4.1, BUN 39, creatinine of 2.5, bicarbonate of 40, calcium of 8.3. Initial point of care troponin negative. Chest x-ray showed findings suggestive of pulmonary edema and small to moderate right and small left pleural effusions. EKG showed atrial fibrillation with possible old inferior infarct, ventricular rate of 64, no new dynamic ST changes. Telemetry reviewed periods of Afib with bradycardia with heart rates into the high 30s. Longest ventricular pause a little over 2 seconds. Echocardiogram: Prior echo in 01/2016 showed hyperdynamic LV with EF greater than 70%, moderate concentric LVH, moderate left atrial dilation, mild calcific aortic stenosis, trace AI, trace MR, with normal estimated RA and PA pressures. IMPRESSION AND PLAN: 1. Acute on chronic diastolic heart failure. 2. Acute on chronic renal insufficiency. 3. Persistent atrial fibrillation. 4. Bradycardia. 5. Hypertension. 6. Morbid obesity with obstructive sleep apnea, question obesity-hypoventilation syndrome. 7. Lower extremity edema with chronic venous insufficiency, question lymphedema. The patient is here today with progressive shortness of breath over the last several weeks and findings on imaging suggestive of worsened pulmonary edema consistent with acute heart failure. The patient is a difficult exam to assess volume status today but appears to still be volume up and recommend continued diuresis. Would start lasix 40 mg IV BID. Otherwise, in regard to the patient's bradycardia on telemetry, unclear that truly having any symptoms from his bradycardia and rate is not such that he should require pacemaker consideration at this time. Agree with holding metoprolol for now. If evidence of rapid ventricular response would consider restarting metoprolol at a lower dose. Otherwise, we will continue to follow while in hospital. Please contact with any questions. Thank you for allowing us to participate in the care of this patient. YONATHAN
[2016-05-07] MEDS: IPRATROPIUM BROMIDE NEB SOLN 0.02% 2.5 ML VIAL INH SCH ×4 (02:21→19:14)
[2016-05-07] MEDS: LEVALBUTEROL 1.25MG/0.5ML NEB INH SCH ×4 (02:21→19:14)
[2016-05-07 07:12] LABS: BASO % 0.7 %; BASO ABS # 0.06 K/uL (0-0.2); COMPLETE YES; EOS % 1.9 %; HEMATOCRIT 44.4 % (42-52); IG% 0.5 %; LYMPH % 11.9 %; LYMPH ABS # 1.04 K/uL (1.2-3.4); MEAN CELL VOLUME 91.9 fL (80-100); MEAN CORPUSCULAR HEMOGLOBIN 28.4 pg (25-34); MEAN CORPUSCULAR HGB CONC 30.9 g/dl (32-36); MEAN PLATELET VOLUME 9.1 fL (7.4-10.4); MONO % 7.9 %; NEUT % 77.1 %; PLATELET COUNT 144 K/uL (130-400); RED BLOOD COUNT 4.83 M/uL (4.7-6.1); WHITE BLOOD COUNT 8.74 K/uL (4.8-10.8)
[2016-05-07 07:18] LABS: INR 1.2 (0.9-1.1); PARTIAL THROMBOPLASTIN RATIO 1.3; PROTHROMBIN TIME (PATIENT) 12.7 SECONDS (9.0-12.0)
[2016-05-07 07:39] LABS: BUN/CREATININE RATIO 15.1 (10-20); CALCIUM 8.8 mg/dl (8.5-10.1); CREATININE 2.8 mg/dl (0.60-1.40); MAGNESIUM 2.4 mg/dl (1.8-2.4); POTASSIUM 3.7 mmol/L (3.5-5.1)
[2016-05-07] MEDS: APIXABAN 2.5 MG TAB PO SCH ×2 (08:01→19:51)
[2016-05-07] MEDS: FUROSEMIDE INJ 80 MG in SYRINGE 0 ML IV SCH ×2 (08:01→15:36)
[2016-05-07] MEDS: ASPIRIN 81 MG ECTAB PO SCH (08:02)
[2016-05-07] MEDS: ISOSORBIDE MONONITRATE 60 MG TABCR PO SCH (08:02)
[2016-05-07] MEDS: SIMVASTATIN 20 MG TAB PO SCH (08:02)
[2016-05-07] MEDS: GUAIFENESIN 600 MG TABCR PO SCH ×2 (08:02→19:51)
[2016-05-07] MEDS: INSULIN ASPART 100 UNITS/ML 3 ML PEN SC SCH ×4 (08:03→19:49)
[2016-05-07] MEDS: POTASSIUM CHLORIDE 10 MEQ TABCR PO SCH (08:03)
--- NOTE | 2016-05-07 12:04 | Cardiology Follow-Up ---
Subjective Subjective Date of Service: May 07, 2016. Pt evaluation today including: conversation w/ family, physical exam, chart review, lab review, review of studies, review of inpatient medication list Additional Details: Breathing somewhat improved this morning. Denies chest pain, palpitations No fevers/chills. No other new complaints. Problem List Medical Problems: (1) CHF (congestive heart failure) Status: Chronic (2) CHF exacerbation Status: Acute Review of Systems Constitutional: No chills, No fever Respiratory: + dyspnea on exertion, + shortness of breath Cardiac: + edema, No chest pain, No palpitations Abdomen: No nausea, No pain Male : No dysuria Heme: No abnormal bleeding/bruising Endo: + fatigue Skin: + rash Objective Vital Signs Last Vital Signs Documentation Date Time Temp Pulse Resp B/P Pulse Ox O2 Delivery O2 Flow Rate FiO2 05/07/16 08:00 Nasal Cannula 3.0 05/07/16 07:47 36.3 94 20 164/94 93 05/05/16 12:51 91 Physical Exam: General Appearance: no apparent distress, + obese ENT: hearing grossly normal Respiratory/Chest: no respiratory distress, + decreased breath sounds (at bases bilaterally) Cardiovascular: regular rate, rhythm, no gallop, no JVD, + systolic murmur (2/ 6 systolic murmur) Abdomen: normal bowel sounds, non tender, soft, + pertinent finding (hernia unchanged) Extremities: + swelling (2+ lower extremity edema to knees bilaterally, right > left) Neurologic/Psychiatric: alert, normal mood/affect, oriented x 3 Skin: + rash (chronic venous stasis changes in lower extremities bilaterally) Assessment and Plan 1. Acute on chronic diastolic heart failure. 2. Acute on chronic renal insufficiency. 3. Persistent atrial fibrillation. 4. Bradycardia. 5. Hypertension. 6. Morbid obesity with obstructive sleep apnea, question obesity-hypoventilation syndrome. 7. Lower extremity edema with chronic venous insufficiency, question lymphedema. -- Breathing improved, net positive yesterday but improving diuresis overnight. -- Still with congestion on exam. -- SCr tending up mildly. - Continue IV diuresis today, target negative 500-1L today. Agree with 80 IV BID today and fluid restriction. - Add back toprol xl 25 mg daily if HRs > 100 - Consider addition of amlodipine if BP still in 150-160s. Will follow. Medications: Current Inpatient Medications Medications (Trade) Dose Ordered Sig/Veronica Route Start Time Stop Time Status Last Admin Dose Admin Acetaminophen (Tylenol Tab) 650 mg Q4H PRN PO 05/05/16 14:30 06/04/16 14:29 Zolpidem Tartrate (Ambien Tab) 5 mg HSZ PRN PO 05/05/16 14:30 06/04/16 14:29 Nitroglycerin (Nitrostat Tab) 0.4 mg UD PRN SL 05/05/16 14:30 06/04/16 14:29 Ondansetron HCl (Zofran Inj) 4 mg Q6H PRN IV 05/05/16 14:30 06/04/16 14:29 Guaifenesin (Mucinex Contr Rel Tab) 600 mg BID PO 05/05/16 21:00 06/04/16 20:59 05/07/16 08:02 600 MG Apixaban (Eliquis Tab) 2.5 mg BID PO 05/05/16 21:00 06/04/16 20:59 05/07/16 08:01 2.5 MG Aspirin (Ecotrin Tab) 81 mg DAILY PO 05/06/16 09:00 06/05/16 08:59 05/07/16 08:02 81 MG Isosorbide Mononitrate (Imdur Ext Rel Tab) 120 mg QAM PO 05/06/16 09:00 06/05/16 08:59 05/07/16 08:02 120 MG Potassium Chloride (Klor-Con M10) 10 meq DAILY PO 05/06/16 09:00 06/05/16 08:59 05/07/16 08:03 10 MEQ Simvastatin (Zocor Tab) 20 mg DAILY PO 05/06/16 09:00 06/05/16 08:59 05/07/16 08:02 20 MG Ipratropium [place] (Atrovent 0.02% 0.5MG/2.5ML Neb) 0.5 mg Q6R INH 05/05/16 15:00 06/04/16 14:59 05/07/16 07:36 0.5 MG Levalbuterol (Xopenex 1.25MG/ 0.5ML Neb) 1.25 mg Q6R INH 05/05/16 15:00 06/04/16 14:59 05/07/16 07:36 1.25 MG Levofloxacin (Consult) 1 ea UD PRN N/A 05/05/16 16:00 06/04/16 15:59 Insulin Aspart (novoLOG ASPART) SLIDING SCALE G... ACHS SC 05/05/16 21:00 06/04/16 20:59 Glucose (Glucose 40% Gel) 15-30 GRAMS 15 GRAMS... UD PRN PO 05/05/16 21:15 06/04/16 21:14 Glucose (Glucose Chew Tab) 4-8 Tablets 4 Tabl... UD PRN PO 05/05/16 21:15 06/04/16 21:14 Dextrose (Dextrose 50% 50ML Syringe) 25-50ML OF 50% DW IV FOR... UD PRN IV 05/05/16 21:15 06/04/16 21:14 Glucagon 1 mg 1 mg UD PRN SQ 05/05/16 21:15 06/04/16 21:14 Levofloxacin/Prmx (Levaquin / D5W/ Premixed D5W) 150 ml @ 100 mls/hr Q48H IV 05/07/16 19:00 05/11/16 18:59 Miconazole Nitrate (Desenex Powder) 1 appln DAILY PRN EXT 05/06/16 18:00 06/05/16 17:59 05/06/16 18:40 1 APPLN Metoprolol Tartrate 2.5 mg 2.5 mg Q2H PRN IV 05/06/16 18:00 06/05/16 17:59 Furosemide/Syringe (Lasix Inj/ Syringe) 8 ml @ 4 mls/min BID@0800,1400 IV 05/07/16 08:00 06/06/16 07:59 05/07/16 08:01 4 MLS/MIN Lab Results: 05/07/16 06:39 Red Blood Count 4.83, Mean Corpuscular Volume 91.9, Mean Corpuscular Hemoglobin 28.4, Mean Corpuscular Hemoglobin Concent 30.9, Mean Platelet Volume 9.1, Neutrophils (%) (Auto) 77.1, Lymphocytes (%) (Auto) 11.9, Monocytes (%) (Auto) 7.9, Eosinophils (%) (Auto) 1.9, Basophils (%) (Auto) 0.7, Neutrophils # (Auto) 6.74, Lymphocytes # (Auto) 1.04, Monocytes # (Auto) 0.69, Eosinophils # (Auto) 0.17, Basophils # (Auto) 0.06 05/07/16 06:39 Test 05/07/16 06:39 05/07/16 11:22 White Blood Count 8.74 K/uL (4.8-10.8) Red Blood Count 4.83 M/uL (4.7-6.1) Hemoglobin 13.7 g/dL (14.0-18.0) Hematocrit 44.4 % (42-52) Mean Corpuscular Volume 91.9 fL (80-100) Mean Corpuscular Hemoglobin 28.4 pg (25-34) Mean Corpuscular Hemoglobin Concent 30.9 g/dl (32-36) Platelet Count 144 K/uL (130-400) Mean Platelet Volume 9.1 fL (7.4-10.4) Neutrophils (%) (Auto) 77.1 % Lymphocytes (%) (Auto) 11.9 % Monocytes (%) (Auto) 7.9 % Eosinophils (%) (Auto) 1.9 % Basophils (%) (Auto) 0.7 % Neutrophils # (Auto) 6.74 K/uL (1.4-6.5) Lymphocytes # (Auto) 1.04 K/uL (1.2-3.4) Monocytes # (Auto) 0.69 K/uL (0.11-0.59) Eosinophils # (Auto) 0.17 K/uL (0-0.5) Basophils # (Auto) 0.06 K/uL (0-0.2) RDW Standard Deviation 52.1 fL (36.4-46.3) RDW Coefficient of Variation 15.6 % (11.5-14.5) Immature Granulocyte % (Auto) 0.5 % Immature Granulocyte # (Auto) 0.04 K/uL (0.00-0.02) Prothrombin Time 12.7 SECONDS (9.0-12.0) Prothromb Time International Ratio 1.2 (0.9-1.1) Activated Partial Thromboplast Time 32.7 SECONDS (21.0-31.0) Partial Thromboplastin Ratio 1.3 Anion Gap 8.0 mmol/L (3-11) Est Creatinine Clear Calc Drug Dose 31.4 ml/min Estimated GFR () 24.6 Estimated GFR (Non- 21.3 BUN/Creatinine Ratio 15.1 (10-20) Calcium Level 8.8 mg/dl (8.5-10.1) Magnesium Level 2.4 mg/dl (1.8-2.4) Bedside Glucose 88 mg/dl (70-99)
--- NOTE | 2016-05-07 13:17 | Progress Note ---
Subjective Date of Service: May 07, 2016. Subjective Pt evaluation today including: conversation w/ patient, physical exam, review of studies, review of inpatient medication list Patient is breathing fine, "could be better." No lightheadedness. On tele, no significant bradycardia since this morning, HR ranging between 50- 60. No chest pain, remains on O2 nasal cannula. No abd pain, no other complaints. Problem List Medical Problems: (1) CHF (congestive heart failure) Status: Chronic (2) CHF exacerbation Status: Acute Review of Systems All Other Systems: Reviewed and Negative Medications Acetaminophen (Tylenol Tab) 650 mg Q4H PRN PO; Start 05/05/16 at 14:30; Stop 06/04/16 at 14:29 Apixaban (Eliquis Tab) 2.5 mg BID PO Last administered on 05/07/16 08:01; Admin Dose 2.5 MG; Start 05/05/16 at 21:00; Stop 06/04/16 at 20:59 Aspirin (Ecotrin Tab) 81 mg DAILY PO Last administered on 05/07/16 08:02; Admin Dose 81 MG; Start 05/06/16 at 09:00; Stop 06/05/16 at 08:59 Dextrose (Dextrose 50% 50ML Syringe) 25-50ML OF 50% DW IV FOR... UD PRN IV; Start 05/05/16 at 21:15; Stop 06/04/16 at 21:14 Furosemide/Syringe (Lasix Inj/ Syringe) 8 ml @ 4 mls/min BID@0800,1400 IV Last administered on 05/07/16 08:01; Admin Dose 4 MLS/MIN; Start 05/07/16 at 08:00; Stop 06/06/16 at 07:59 Glucagon 1 mg 1 mg UD PRN SQ; Start 05/05/16 at 21:15; Stop 06/04/16 at 21:14 Glucose (Glucose 40% Gel) 15-30 GRAMS 15 GRAMS... UD PRN PO; Start 05/05/16 at 21:15; Stop 06/04/16 at 21:14 Glucose (Glucose Chew Tab) 4-8 Tablets 4 Tabl... UD PRN PO; Start 05/05/16 at 21:15; Stop 06/04/16 at 21:14 Guaifenesin (Mucinex Contr Rel Tab) 600 mg BID PO Last administered on 08:02; Admin Dose 600 MG; Start 05/05/16 at 21:00; Stop 06/04/16 at 20:59 Insulin Aspart (novoLOG ASPART) SLIDING SCALE G... ACHS SC; Start at 21:00; Stop 06/04/16 at 20:59 Ipratropium [place] (Atrovent 0.02% 0.5MG/2.5ML Neb) 0.5 mg Q6R INH Last administered on 05/07/16 07:36; Admin Dose 0.5 MG; Start 05/05/16 at 15:00; Stop 06/04/16 at 14:59 Isosorbide Mononitrate (Imdur Ext Rel Tab) 120 mg QAM PO Last administered on 08:02; Admin Dose 120 MG; Start 05/06/16 at 09:00; Stop 06/05/16 at 08: 59 Levalbuterol (Xopenex 1.25MG/ 0.5ML Neb) 1.25 mg Q6R INH Last administered on 07:36; Admin Dose 1.25 MG; Start 05/05/16 at 15:00; Stop 06/04/16 at 14: 59 Levofloxacin (Consult) 1 ea UD PRN N/A; Start 05/05/16 at 16:00; Stop 06/04/16 at 15:59 Levofloxacin/Prmx (Levaquin / D5W/ Premixed D5W) 150 ml @ 100 mls/hr Q48H IV; Start 05/07/16 at 19:00; Stop 05/11/16 at 18:59 Metoprolol Tartrate 2.5 mg 2.5 mg Q2H PRN IV; Start 05/06/16 at 18:00; Stop at 17:59 Miconazole Nitrate (Desenex Powder) 1 appln DAILY PRN EXT Last administered on 05/06/16 18:40; Admin Dose 1 APPLN; Start 05/06/16 at 18:00; Stop 06/05/16 at 17:59 Nitroglycerin (Nitrostat Tab) 0.4 mg UD PRN SL; Start 05/05/16 at 14:30; Stop 06/04/16 at 14:29 Ondansetron HCl (Zofran Inj) 4 mg Q6H PRN IV; Start 05/05/16 at 14:30; Stop at 14:29 Potassium Chloride (Klor-Con M10) 10 meq DAILY PO Last administered on 08:03; Admin Dose 10 MEQ; Start 05/06/16 at 09:00; Stop 06/05/16 at 08:59 Simvastatin (Zocor Tab) 20 mg DAILY PO Last administered on 05/07/16 08:02; Admin Dose 20 MG; Start 05/06/16 at 09:00; Stop 06/05/16 at 08:59 Zolpidem Tartrate (Ambien Tab) 5 mg HSZ PRN PO; Start 05/05/16 at 14:30; Stop 06/04/16 at 14:29 Objective Vital Signs Date Time Temp Pulse Resp B/P Pulse Ox O2 Delivery O2 Flow Rate FiO2 05/07/16 11:50 36.4 65 16 121/86 93 Nasal Cannula 3.0 05/07/16 08:00 Nasal Cannula 3.0 05/07/16 07:47 36.3 94 20 164/94 93 Nasal Cannula 3.0 05/07/16 07:36 96 16 94 Nasal Cannula 3.0 05/07/16 04:19 36.8 92 20 153/87 95 3.0 05/07/16 04:00 Nasal Cannula 3.0 05/07/16 02:21 89 16 93 Nasal Cannula 3.0 05/07/16 00:00 Nasal Cannula 3.0 05/06/16 23:13 36.5 80 18 112/72 93 Room Air 05/06/16 20:00 Nasal Cannula 3.0 05/06/16 19:38 36.5 79 18 124/75 91 Nasal Cannula 3.0 05/06/16 19:13 73 16 90 Nasal Cannula 3.0 05/06/16 16:00 Nasal Cannula 3.0 05/06/16 15:43 36.8 80 18 145/84 94 Nasal Cannula 3.0 05/06/16 14:34 55 16 93 Nasal Cannula 3.0 Physical Exam Comments: nad, sitting up in chair, aox3 eomi, anicteric irreg irreg reg rate, + systolic murmur appreciated diminished breath sounds b/l, basilar rales abd +hernia noted without tenderness, soft, +BS 2+ LE edema Laboratory Results Last 24 Hours Test 05/06/16 16:31 05/06/16 20:24 05/07/16 06:39 05/07/16 07:27 Bedside Glucose 87 mg/dl 90 mg/dl 70 mg/dl White Blood Count 8.74 K/uL Red Blood Count 4.83 M/uL Hemoglobin 13.7 g/dL Hematocrit 44.4 % Mean Corpuscular Volume 91.9 fL Mean Corpuscular Hemoglobin 28.4 pg Mean Corpuscular Hemoglobin Concent 30.9 g/dl Platelet Count 144 K/uL Mean Platelet Volume 9.1 fL Neutrophils (%) (Auto) 77.1 % Lymphocytes (%) (Auto) 11.9 % Monocytes (%) (Auto) 7.9 % Eosinophils (%) (Auto) 1.9 % Basophils (%) (Auto) 0.7 % Neutrophils # (Auto) 6.74 K/uL Lymphocytes # (Auto) 1.04 K/uL Monocytes # (Auto) 0.69 K/uL Eosinophils # (Auto) 0.17 K/uL Basophils # (Auto) 0.06 K/uL RDW Standard Deviation 52.1 fL RDW Coefficient of Variation 15.6 % Immature Granulocyte % (Auto) 0.5 % Immature Granulocyte # (Auto) 0.04 K/uL Prothrombin Time 12.7 SECONDS Prothromb Time International Ratio 1.2 Activated Partial Thromboplast Time 32.7 SECONDS Partial Thromboplastin Ratio 1.3 Sodium Level 144 mmol/L Potassium Level 3.7 mmol/L Chloride Level 100 mmol/L Carbon Dioxide Level 36 mmol/L Anion Gap 8.0 mmol/L Blood Urea Nitrogen 42 mg/dl Creatinine 2.80 mg/dl Est Creatinine Clear Calc Drug Dose 31.4 ml/min Estimated GFR () 24.6 Estimated GFR (Non- 21.3 BUN/Creatinine Ratio 15.1 Random Glucose 80 mg/dl Calcium Level 8.8 mg/dl Magnesium Level 2.4 mg/dl Test 05/07/16 11:22 Bedside Glucose 88 mg/dl Assessment and Plan 1. Acute decompensated diastolic CHF - EF on last echo was normal - will titrate IV lasix to 80 mg BID to achieve negative fluid balance of about 500-1000 cc / 24 hrs - i/o, daily weights 2. COPD exacerbation - cont xopenex - MRSA screening negative, will stop Vanco - unlikely aspiration or HCAP with no recent admissions, will stop zosyn - cont levaquin 3. Afib - now with bradycardic episodes as low as 34 and apparently some complaints of lightheadedness - will stop metoprolol po for now, will place a prn metoprolol if becomes tachycardic - appreciate cardio recs - cont eliquis 4. [place] CKD IIIb - likely renal congestion with element of cardiorenal - will continue to monitor - for now, will manage acute CHF - may need an increased dose of lasix if not having enough urine output - baseline is around 2.0 - avoid nephrotoxins such as NSAIDs, non-emergent contrast studies, & hypotension
[2016-05-07] MEDS ORDERED: VANCOMYCIN TROUGH SCH (13:30)
[2016-05-07] MEDS: LEVOFLOXACIN / D5W 750 MG in PREMIXED IN D5W 150 ML IV SCH (18:16)
[2016-05-07] MEDS: MICONAZOLE NITRATE POWDER 43 GM EXT PRN (18:16)
[2016-05-08] VITALS (10 sets, daily range): BP systolic 114–146; BP diastolic 74–93; PULSE 62–101; TEMP 36.2–36.6; O2SAT 91–96
[2016-05-08] MEDS: LEVALBUTEROL 1.25MG/0.5ML NEB INH SCH ×4 (02:25→19:20)
[2016-05-08] MEDS: IPRATROPIUM BROMIDE NEB SOLN 0.02% 2.5 ML VIAL INH SCH ×4 (02:25→19:20)
[2016-05-08 07:16] LABS: BASO % 0.3 %; BASO ABS # 0.03 K/uL (0-0.2); COMPLETE YES; EOS % 1.8 %; HEMATOCRIT 41.5 % (42-52); IG% 0.4 %; LYMPH % 12.6 %; LYMPH ABS # 1.17 K/uL (1.2-3.4); MEAN CELL VOLUME 91.6 fL (80-100); MEAN CORPUSCULAR HEMOGLOBIN 28.5 pg (25-34); MEAN CORPUSCULAR HGB CONC 31.1 g/dl (32-36); MEAN PLATELET VOLUME 9.2 fL (7.4-10.4); MONO % 8.6 %; NEUT % 76.3 %; PLATELET COUNT 134 K/uL (130-400); RED BLOOD COUNT 4.53 M/uL (4.7-6.1); WHITE BLOOD COUNT 9.27 K/uL (4.8-10.8)
[2016-05-08 07:23] LABS: INR 1.2 (0.9-1.1); PARTIAL THROMBOPLASTIN RATIO 1.3
[2016-05-08] MEDS: SIMVASTATIN 20 MG TAB PO SCH (08:41)
[2016-05-08] MEDS: ASPIRIN 81 MG ECTAB PO SCH ×2 (08:41→09:25)
[2016-05-08] MEDS: ISOSORBIDE MONONITRATE 60 MG TABCR PO SCH (08:41)
[2016-05-08] MEDS: APIXABAN 2.5 MG TAB PO SCH ×3 (08:42→21:30)
[2016-05-08] MEDS: FUROSEMIDE INJ 80 MG in SYRINGE 0 ML IV SCH ×2 (08:42→17:29)
[2016-05-08] MEDS: GUAIFENESIN 600 MG TABCR PO SCH ×2 (08:42→21:30)
[2016-05-08] MEDS: POTASSIUM CHLORIDE 10 MEQ TABCR PO SCH (08:42)
[2016-05-08] MEDS: INSULIN ASPART 100 UNITS/ML 3 ML PEN SC SCH ×4 (08:42→20:23)
--- NOTE | 2016-05-08 09:06 | DIAGNOSTIC IMAGING REPORT ---
CHEST 2 VIEWS ROUTINE CLINICAL HISTORY: chf dyspnea COMPARISON STUDY: 05/05/2016 FINDINGS: Improving components of congestive failure. Right pleural effusion perhaps slightly increased in volume from the prior study. Trace pleural fluid left base. IMPRESSION: Improving congestive heart failure. Right and to a lesser extent left pleural effusion slightly progressive Electronically signed by: Taz John M.D. 05/08/2016 9:04 AM Dictated Date/Time: 05/08/2016 9:04 AM
[2016-05-08] MEDS ORDERED: SODIUM CHLORIDE 0.65% NA SOLN 45 ML (OCEAN) ONE (09:24)
[2016-05-08 09:55] LABS: ALB/GLOB RATIO 0.7 (0.9-2); CALCIUM 8.7 mg/dl (8.5-10.1); CREATININE 2.9 mg/dl (0.60-1.40); MAGNESIUM 2.3 mg/dl (1.8-2.4); POTASSIUM 3.8 mmol/L (3.5-5.1)
--- NOTE | 2016-05-08 09:57 | Progress Note ---
Subjective Date of Service: May 08, 2016. Subjective Pt evaluation today including: conversation w/ patient, physical exam, lab review, review of studies, review of inpatient medication list negative 570 cc in past 24 hours, yet his weight has gone up. He continues to have adequate diuresis with slightly improved breathing. No chest pain, no sob. Leg swelling improved as well. Problem List Medical Problems: (1) CHF (congestive heart failure) Status: Chronic (2) CHF exacerbation Status: Acute Review of Systems All Other Systems: Reviewed and Negative Medications Acetaminophen (Tylenol Tab) 650 mg Q4H PRN PO; Start 05/05/16 at 14:30; Stop 06/04/16 at 14:29 Apixaban (Eliquis Tab) 2.5 mg BID PO Last administered on 05/07/16 19:51; Admin Dose 2.5 MG; Start 05/05/16 at 21:00; Stop 06/04/16 at 20:59 Aspirin (Ecotrin Tab) 81 mg DAILY PO Last administered on 05/07/16 08:02; Admin Dose 81 MG; Start 05/06/16 at 09:00; Stop 06/05/16 at 08:59 Dextrose (Dextrose 50% 50ML Syringe) 25-50ML OF 50% DW IV FOR... UD PRN IV; Start 05/05/16 at 21:15; Stop 06/04/16 at 21:14 Furosemide/Syringe (Lasix Inj/ Syringe) 8 ml @ 4 mls/min BID@0800,1400 IV Last administered on 05/08/16 08:42; Admin Dose 4 MLS/MIN; Start 05/07/16 at 08:00; Stop 06/06/16 at 07:59 Glucagon 1 mg 1 mg UD PRN SQ; Start 05/05/16 at 21:15; Stop 06/04/16 at 21:14 Glucose (Glucose 40% Gel) 15-30 GRAMS 15 GRAMS... UD PRN PO; Start 05/05/16 at 21:15; Stop 06/04/16 at 21:14 Glucose (Glucose Chew Tab) 4-8 Tablets 4 Tabl... UD PRN PO; Start 05/05/16 at 21:15; Stop 06/04/16 at 21:14 Guaifenesin (Mucinex Contr Rel Tab) 600 mg BID PO Last administered on 08:42; Admin Dose 600 MG; Start 05/05/16 at 21:00; Stop 06/04/16 at 20:59 Insulin Aspart (novoLOG ASPART) SLIDING SCALE G... ACHS SC; Start at 21:00; Stop 06/04/16 at 20:59 Ipratropium [place] (Atrovent 0.02% 0.5MG/2.5ML Neb) 0.5 mg Q6R INH Last administered on 05/08/16 07:10; Admin Dose 0.5 MG; Start 05/05/16 at 15:00; Stop 06/04/16 at 14:59 Isosorbide Mononitrate (Imdur Ext Rel Tab) 120 mg QAM PO Last administered on 08:41; Admin Dose 120 MG; Start 05/06/16 at 09:00; Stop 06/05/16 at 08: 59 Levalbuterol (Xopenex 1.25MG/ 0.5ML Neb) 1.25 mg Q6R INH Last administered on 07:10; Admin Dose 1.25 MG; Start 05/05/16 at 15:00; Stop 06/04/16 at 14: 59 Levofloxacin (Consult) 1 ea UD PRN N/A; Start 05/05/16 at 16:00; Stop 06/04/16 at 15:59 Levofloxacin/Prmx (Levaquin / D5W/ Premixed D5W) 150 ml @ 100 mls/hr Q48H IV Last administered on 05/07/16 18:16; Admin Dose 100 MLS/HR; Start 05/07/16 at 19:00; Stop 05/11/16 at 18:59 Metoprolol Tartrate 2.5 mg 2.5 mg Q2H PRN IV; Start 05/06/16 at 18:00; Stop at 17:59 Miconazole Nitrate (Desenex Powder) 1 appln DAILY PRN EXT Last administered on 05/07/16 18:16; Admin Dose 1 APPLN; Start 05/06/16 at 18:00; Stop 06/05/16 at 17:59 Nitroglycerin (Nitrostat Tab) 0.4 mg UD PRN SL; Start 05/05/16 at 14:30; Stop 06/04/16 at 14:29 Ondansetron HCl (Zofran Inj) 4 mg Q6H PRN IV; Start 05/05/16 at 14:30; Stop at 14:29 Potassium Chloride (Klor-Con M10) 10 meq DAILY PO Last administered on 08:42; Admin Dose 10 MEQ; Start 05/06/16 at 09:00; Stop 06/05/16 at 08:59 Simvastatin (Zocor Tab) 20 mg DAILY PO Last administered on 05/08/16 08:41; Admin Dose 20 MG; Start 05/06/16 at 09:00; Stop 06/05/16 at 08:59 Zolpidem Tartrate (Ambien Tab) 5 mg HSZ PRN PO; Start 05/05/16 at 14:30; Stop 06/04/16 at 14:29 Objective Vital Signs Date Time Temp Pulse Resp B/P Pulse Ox O2 Delivery O2 Flow Rate FiO2 05/08/16 07:20 36.6 101 20 145/93 91 05/08/16 07:10 78 16 96 Nasal Cannula 3.0 05/08/16 04:00 Nasal Cannula 3.0 05/08/16 03:05 36.5 89 20 146/86 93 Nasal Cannula 3.0 05/08/16 02:25 67 16 96 Nasal Cannula 3.0 05/08/16 00:00 Nasal Cannula 3.0 05/07/16 23:27 36.7 86 18 145/96 99 Nasal Cannula 3.0 05/07/16 20:00 Nasal Cannula 3.0 05/07/16 19:30 36.8 78 20 96/60 94 3.0 05/07/16 19:14 65 16 95 Nasal Cannula 3.0 05/07/16 16:00 Nasal Cannula 3.0 05/07/16 14:56 36.6 66 16 125/75 93 Nasal Cannula 3.0 05/07/16 14:39 81 16 95 Nasal Cannula 3.0 05/07/16 12:00 Nasal Cannula 3.0 05/07/16 11:50 36.4 65 16 121/86 93 Nasal Cannula 3.0 Physical Exam Comments: nad, aox3 eomi, perrl irreg irreg, reg rate, no murmurs appreciated diminished breath sounds throughout, no wheezing, rales at bases bilaterally abd obese with hernia, non-tender, +BS 2+ LE edema cn 2-12 grossly intact Laboratory Results Last 24 Hours Test 05/07/16 11:22 05/07/16 16:20 05/07/16 19:42 05/08/16 04:44 Bedside Glucose 88 mg/dl 97 mg/dl 149 mg/dl Test 05/08/16 07:05 05/08/16 07:30 White Blood Count 9.27 K/uL Red Blood Count 4.53 M/uL Hemoglobin 12.9 g/dL Hematocrit 41.5 % Mean Corpuscular Volume 91.6 fL Mean Corpuscular Hemoglobin 28.5 pg Mean Corpuscular Hemoglobin Concent 31.1 g/dl Platelet Count 134 K/uL Mean Platelet Volume 9.2 fL Neutrophils (%) (Auto) 76.3 % Lymphocytes (%) (Auto) 12.6 % Monocytes (%) (Auto) 8.6 % Eosinophils (%) (Auto) 1.8 % Basophils (%) (Auto) 0.3 % Neutrophils # (Auto) 7.06 K/uL Lymphocytes # (Auto) 1.17 K/uL Monocytes # (Auto) 0.80 K/uL Eosinophils # (Auto) 0.17 K/uL Basophils # (Auto) 0.03 K/uL RDW Standard Deviation 51.6 fL RDW Coefficient of Variation 15.4 % Immature Granulocyte % (Auto) 0.4 % Immature Granulocyte # (Auto) 0.04 K/uL Prothrombin Time 13.0 SECONDS Prothromb Time International Ratio 1.2 Activated Partial Thromboplast Time 32.6 SECONDS Partial Thromboplastin Ratio 1.3 Bedside Glucose 75 mg/dl Assessment and Plan 1. Acute decompensated diastolic CHF - EF on last echo was normal - continue him on lasix 80mg BID and monitor i/o - monitor daily weights - CXR with improved congestion but with slightly progressed pleural effusions - would consider pulmonary consult for a tap, however, may be too small for a tap 2. COPD exacerbation - cont xopenex - MRSA screening negative, will stop Vanco - unlikely aspiration or HCAP with no recent admissions, will stop zosyn - cont levaquin, day 4 of abx coverage 3. Afib - bradycardic episodes resolved after metoprolol was stopped - if becomes tachycardic, can probably restart metoprolol at a lower dose - appreciate cardio recs - cont eliquis 4. [place] on CKD IIIb - likely renal congestion with element of cardiorenal vs progression of CKD - will continue to monitor - obtain renal US to evaluate renal parenchyma/CKD - baseline is around 2.0, slightly worse than yesterday - would treat decompensated CHF despite worsening renal function however, due to underlying chronic pulmonary issue, he may benefit from a right heart cath to determine pressures and determine if his pulmonary symptoms are really from volume status vs pulmonary status - avoid nephrotoxins such as NSAIDs, non-emergent contrast studies, & hypotension
--- NOTE | 2016-05-08 14:36 | Cardiology Follow-Up ---
Subjective Subjective Date of Service: May 08, 2016. Pt evaluation today including: conversation w/ patient, physical exam, chart review, lab review, review of studies, review of inpatient medication list Additional Details: Breathing slightly improved. No chest pain, palpitations, presyncope. Negative 570 mL overnight. Problem List Medical Problems: (1) CHF (congestive heart failure) Status: Chronic (2) CHF exacerbation Status: Acute Review of Systems Constitutional: No chills, No fever Respiratory: + dyspnea on exertion, + shortness of breath Cardiac: + edema, No chest pain, No palpitations Abdomen: No nausea, No pain Male : No dysuria Heme: No abnormal bleeding/bruising Endo: + fatigue Skin: + rash Objective Vital Signs Last Vital Signs Documentation Date Time Temp Pulse Resp B/P Pulse Ox O2 Delivery O2 Flow Rate FiO2 05/08/16 12:00 Nasal Cannula 3.0 05/08/16 11:48 36.6 85 20 114/74 93 05/05/16 12:51 91 Physical Exam: General Appearance: no apparent distress, + obese ENT: hearing grossly normal Respiratory/Chest: no respiratory distress, + decreased breath sounds (at bases bilaterally) Cardiovascular: no gallop, no JVD, + systolic murmur (2/6 systolic murmur), + irregularly irregular Abdomen: normal bowel sounds, non tender, soft, + pertinent finding (hernia unchanged) Extremities: + swelling (2+ lower extremity edema to knees bilaterally, right > left) Neurologic/Psychiatric: alert, normal mood/affect, oriented x 3 Skin: + rash (chronic venous stasis changes in lower extremities bilaterally) Assessment and Plan 1. Acute on chronic diastolic heart failure--improved diuresis overnight, slowly improving congestion. 2. Acute on chronic renal insufficiency--stable serum creatinine with diuresis. 3. Persistent atrial fibrillation--rate controlled, off beta-blockers 4. Bradycardia-- No further events off beta-blockers 5. Hypertension--reasonably controlled 6. COPD--being treated for possible exacerbation 7. Lower extremity edema with chronic venous insufficiency, question lymphedema. - agree with continued IV diuresis, fluid restriction. lasix 80 mg BID, target negative 500-1L today. - Add back toprol xl 25 mg daily if HRs > 100 - continue Eliquis for anticoagulation Will follow. Medications: Current Inpatient Medications Medications (Trade) Dose Ordered Sig/Veronica Route Start Time Stop Time Status Last Admin Dose Admin Acetaminophen (Tylenol Tab) 650 mg Q4H PRN PO 05/05/16 14:30 06/04/16 14:29 Zolpidem Tartrate (Ambien Tab) 5 mg HSZ PRN PO 05/05/16 14:30 06/04/16 14:29 Nitroglycerin (Nitrostat Tab) 0.4 mg UD PRN SL 05/05/16 14:30 06/04/16 14:29 Ondansetron HCl (Zofran Inj) 4 mg Q6H PRN IV 05/05/16 14:30 06/04/16 14:29 Guaifenesin (Mucinex Contr Rel Tab) 600 mg BID PO 05/05/16 21:00 06/04/16 20:59 05/08/16 08:42 600 MG Apixaban (Eliquis Tab) 2.5 mg BID PO 05/05/16 21:00 06/04/16 20:59 05/08/16 09:25 2.5 MG Aspirin (Ecotrin Tab) 81 mg DAILY PO 05/06/16 09:00 06/05/16 08:59 05/08/16 09:25 81 MG Isosorbide Mononitrate (Imdur Ext Rel Tab) 120 mg QAM PO 05/06/16 09:00 06/05/16 08:59 05/08/16 08:41 120 MG Potassium Chloride (Klor-Con M10) 10 meq DAILY PO 05/06/16 09:00 06/05/16 08:59 05/08/16 08:42 10 MEQ Simvastatin (Zocor Tab) 20 mg DAILY PO 05/06/16 09:00 06/05/16 08:59 05/08/16 08:41 20 MG Ipratropium [place] (Atrovent 0.02% 0.5MG/2.5ML Neb) 0.5 mg Q6R INH 05/05/16 15:00 06/04/16 14:59 05/08/16 07:10 0.5 MG Levalbuterol (Xopenex 1.25MG/ 0.5ML Neb) 1.25 mg Q6R INH 05/05/16 15:00 06/04/16 14:59 05/08/16 07:10 1.25 MG Levofloxacin (Consult) 1 ea UD PRN N/A 05/05/16 16:00 06/04/16 15:59 Insulin Aspart (novoLOG ASPART) SLIDING SCALE G... ACHS SC 05/05/16 21:00 06/04/16 20:59 Glucose (Glucose 40% Gel) 15-30 GRAMS 15 GRAMS... UD PRN PO 05/05/16 21:15 06/04/16 21:14 Glucose (Glucose Chew Tab) 4-8 Tablets 4 Tabl... UD PRN PO 05/05/16 21:15 06/04/16 21:14 Dextrose (Dextrose 50% 50ML Syringe) 25-50ML OF 50% DW IV FOR... UD PRN IV 05/05/16 21:15 06/04/16 21:14 Glucagon 1 mg 1 mg UD PRN SQ 05/05/16 21:15 06/04/16 21:14 Levofloxacin/Prmx (Levaquin / D5W/ Premixed D5W) 150 ml @ 100 mls/hr Q48H IV 05/07/16 19:00 05/11/16 18:59 05/07/16 18:16 100 MLS/HR Miconazole Nitrate (Desenex Powder) 1 appln DAILY PRN EXT 05/06/16 18:00 06/05/16 17:59 05/07/16 18:16 1 APPLN Metoprolol Tartrate 2.5 mg 2.5 mg Q2H PRN IV 05/06/16 18:00 06/05/16 17:59 Furosemide/Syringe (Lasix Inj/ Syringe) 8 ml @ 4 mls/min BID@0800,1400 IV 05/07/16 08:00 06/06/16 07:59 05/08/16 08:42 4 MLS/MIN Sodium Chloride ([place] Nasal [place]) 1 sprays BID NA 05/08/16 21:00 06/07/16 20:59 Lab Results: 05/08/16 07:05 Red Blood Count 4.53, Mean Corpuscular Volume 91.6, Mean Corpuscular Hemoglobin 28.5, Mean Corpuscular Hemoglobin Concent 31.1, Mean Platelet Volume 9.2, Neutrophils (%) (Auto) 76.3, Lymphocytes (%) (Auto) 12.6, Monocytes (%) (Auto) 8.6, Eosinophils (%) (Auto) 1.8, Basophils (%) (Auto) 0.3, Neutrophils # (Auto) 7.06, Lymphocytes # (Auto) 1.17, Monocytes # (Auto) 0.80, Eosinophils # (Auto) 0.17, Basophils # (Auto) 0.03 05/08/16 07:05 Test 05/08/16 07:05 05/08/16 11:33 White Blood Count 9.27 K/uL (4.8-10.8) Red Blood Count 4.53 M/uL (4.7-6.1) Hemoglobin 12.9 g/dL (14.0-18.0) Hematocrit 41.5 % (42-52) Mean Corpuscular Volume 91.6 fL (80-100) Mean Corpuscular Hemoglobin 28.5 pg (25-34) Mean Corpuscular Hemoglobin Concent 31.1 g/dl (32-36) Platelet Count 134 K/uL (130-400) Mean Platelet Volume 9.2 fL (7.4-10.4) Neutrophils (%) (Auto) 76.3 % Lymphocytes (%) (Auto) 12.6 % Monocytes (%) (Auto) 8.6 % Eosinophils (%) (Auto) 1.8 % Basophils (%) (Auto) 0.3 % Neutrophils # (Auto) 7.06 K/uL (1.4-6.5) Lymphocytes # (Auto) 1.17 K/uL (1.2-3.4) Monocytes # (Auto) 0.80 K/uL (0.11-0.59) Eosinophils # (Auto) 0.17 K/uL (0-0.5) Basophils # (Auto) 0.03 K/uL (0-0.2) RDW Standard Deviation 51.6 fL (36.4-46.3) RDW Coefficient of Variation 15.4 % (11.5-14.5) Immature Granulocyte % (Auto) 0.4 % Immature Granulocyte # (Auto) 0.04 K/uL (0.00-0.02) Prothrombin Time 13.0 SECONDS (9.0-12.0) Prothromb Time International Ratio 1.2 (0.9-1.1) Activated Partial Thromboplast Time 32.6 SECONDS (21.0-31.0) Partial Thromboplastin Ratio 1.3 Anion Gap 7.0 mmol/L (3-11) Est Creatinine Clear Calc Drug Dose 30.9 ml/min Estimated GFR () 23.6 Estimated GFR (Non- 20.4 BUN/Creatinine Ratio 17.0 (10-20) Calcium Level 8.7 mg/dl (8.5-10.1) Magnesium Level 2.3 mg/dl (1.8-2.4) Total Bilirubin 0.7 mg/dl (0.2-1) Aspartate Amino Transf (AST/SGOT) 11 U/L (15-37) Alanine Aminotransferase (ALT/SGPT) 18 U/L (12-78) Alkaline Phosphatase 97 U/L (45-117) Total Protein 6.3 gm/dl (6.4-8.2) Albumin 2.5 gm/dl (3.4-5.0) Globulin 3.8 gm/dl (2.5-4.0) Albumin/Globulin Ratio 0.7 (0.9-2) Bedside Glucose 84 mg/dl (70-99)
--- NOTE | 2016-05-08 17:29 | DIAGNOSTIC IMAGING REPORT ---
RENAL ULTRASOUND HISTORY: Renal insufficiency eval CK COMPARISON: 02/19/2016 FINDINGS: Right kidney: Maximum dimension 11.3 cm. No evidence for hydronephrosis. Increased cortical echogenicity. Several small renal cysts. Normal corticomedullary differentiation and cortical thickness. Left kidney: Maximum dimension 11.3 cm. No evidence for hydronephrosis. Increased cortical echogenicity Bladder: No bladder wall thickening. The bilateral ureteral jets were identified. IMPRESSION: Findings consistent with nonobstructive renal insufficiency. No evidence for hydronephrosis. No change from the prior study dated 02/19/2016. Electronically signed by: Taz John M.D. 05/08/2016 5:27 PM Dictated Date/Time: 05/08/2016 5:26 PM
[2016-05-08] MEDS: SODIUM CHLORIDE 0.65% NA SOLN 45 ML (OCEAN) SCH (21:30)
[2016-05-09] VITALS (9 sets, daily range): BP systolic 117–130; BP diastolic 74–86; PULSE 62–93; TEMP 36.5–36.8; O2SAT 91–98
[2016-05-09] MEDS: LEVALBUTEROL 1.25MG/0.5ML NEB INH SCH ×4 (02:17→20:18)
[2016-05-09] MEDS: IPRATROPIUM BROMIDE NEB SOLN 0.02% 2.5 ML VIAL INH SCH ×4 (02:17→20:18)
[2016-05-09 06:36] LABS: BASO % 0.4 %; BASO ABS # 0.03 K/uL (0-0.2); COMPLETE YES; EOS % 2.5 %; HEMATOCRIT 40.9 % (42-52); IG% 0.2 %; LYMPH % 15.5 %; MEAN CELL VOLUME 89.9 fL (80-100); MEAN CORPUSCULAR HEMOGLOBIN 28.1 pg (25-34); MEAN CORPUSCULAR HGB CONC 31.3 g/dl (32-36); MEAN PLATELET VOLUME 9.5 fL (7.4-10.4); MONO % 6.7 %; NEUT % 74.7 %; PLATELET COUNT 139 K/uL (130-400); RED BLOOD COUNT 4.55 M/uL (4.7-6.1); WHITE BLOOD COUNT 8.37 K/uL (4.8-10.8)
[2016-05-09 07:14] LABS: BUN/CREATININE RATIO 17.6 (10-20); CALCIUM 8.7 mg/dl (8.5-10.1); CREATININE 2.9 mg/dl (0.60-1.40); MAGNESIUM 2.8 mg/dl (1.8-2.4); POTASSIUM 3.9 mmol/L (3.5-5.1)
[2016-05-09] MEDS: MICONAZOLE NITRATE POWDER 43 GM EXT PRN (08:25)
[2016-05-09] MEDS: FUROSEMIDE INJ 80 MG in SYRINGE 0 ML IV SCH ×2 (08:25→14:10)
[2016-05-09] MEDS: SODIUM CHLORIDE 0.65% NA SOLN 45 ML (OCEAN) SCH ×2 (08:25→19:37)
[2016-05-09] MEDS: SIMVASTATIN 20 MG TAB PO SCH (08:26)
[2016-05-09] MEDS: GUAIFENESIN 600 MG TABCR PO SCH ×2 (08:26→19:37)
[2016-05-09] MEDS: ISOSORBIDE MONONITRATE 60 MG TABCR PO SCH (08:26)
[2016-05-09] MEDS: APIXABAN 2.5 MG TAB PO SCH ×2 (08:27→19:37)
[2016-05-09] MEDS: ASPIRIN 81 MG ECTAB PO SCH (08:27)
[2016-05-09] MEDS: INSULIN ASPART 100 UNITS/ML 3 ML PEN SC SCH ×4 (08:27→20:57)
[2016-05-09] MEDS: POTASSIUM CHLORIDE 10 MEQ TABCR PO SCH (08:27)
[2016-05-09] MEDS: LEVOFLOXACIN / D5W 750 MG in PREMIXED IN D5W 150 ML IV SCH (18:24)
--- NOTE | 2016-05-09 18:30 | Progress Note ---
Subjective Date of Service: May 09, 2016. Subjective pt feels he is about 70% improved, has not walked distances here, states only uses cane at home as his trailer cannot fit walker. is interested in going home though Problem List Medical Problems: (1) CHF (congestive heart failure) Status: Chronic (2) CHF exacerbation Status: Acute Review of Systems Constitutional: + fatigue, + weakness, No chills, No fever Respiratory: No cough, No dyspnea on exertion, No shortness of breath, No sputum Cardiac: + edema (++), No chest pain Abdomen: No diarrhea, No nausea, No pain, No vomiting Male : No dysuria, No urinary frequency Neurologic: + balance problems, + weakness Psychiatric: No anhedonism, No depression symptoms Skin: + new/changing skin lesions (changes of chronic venous stasis) Objective Vital Signs Date Time Temp Pulse Resp B/P Pulse Ox O2 Delivery O2 Flow Rate FiO2 05/09/16 08:21 36.6 78 18 117/82 91 Room Air 05/09/16 07:11 83 16 96 Nasal Cannula 3.0 05/09/16 04:00 Nasal Cannula 3.0 05/09/16 03:56 36.5 93 24 130/86 93 Nasal Cannula 4.0 05/09/16 02:17 62 16 97 Nasal Cannula 3.0 05/09/16 00:00 Nasal Cannula 3.0 05/08/16 23:58 36.2 82 20 135/81 93 Nasal Cannula 3.0 05/08/16 20:00 36.6 99 20 126/80 96 3.0 05/08/16 20:00 Nasal Cannula 3.0 05/08/16 19:20 98 16 95 Nasal Cannula 3.0 05/08/16 16:00 Nasal Cannula 3.0 05/08/16 15:24 36.5 71 20 128/81 96 Nasal Cannula 2.0 Humidified Oxygen 05/08/16 14:35 62 16 95 Nasal Cannula 3.0 05/08/16 12:00 Nasal Cannula 3.0 05/08/16 11:48 36.6 85 20 114/74 93 Physical Exam General Appearance: + mild distress, + obese Neck: supple, no JVD Respiratory/Chest: chest non-tender, + decreased breath sounds (bases) Cardiovascular: regular rate, rhythm, no murmur Abdomen: normal bowel sounds, soft Extremities: + pedal edema, + swelling Skin: warm/dry, + rash Laboratory Results Last 24 Hours Test 05/08/16 11:33 05/08/16 16:30 05/08/16 20:09 05/09/16 06:04 Bedside Glucose 84 mg/dl 98 mg/dl 136 mg/dl White Blood Count 8.37 K/uL Red Blood Count 4.55 M/uL Hemoglobin 12.8 g/dL Hematocrit 40.9 % Mean Corpuscular Volume 89.9 fL Mean Corpuscular Hemoglobin 28.1 pg Mean Corpuscular Hemoglobin Concent 31.3 g/dl Platelet Count 139 K/uL Mean Platelet Volume 9.5 fL Neutrophils (%) (Auto) 74.7 % Lymphocytes (%) (Auto) 15.5 % Monocytes (%) (Auto) 6.7 % Eosinophils (%) (Auto) 2.5 % Basophils (%) (Auto) 0.4 % Neutrophils # (Auto) 6.25 K/uL Lymphocytes # (Auto) 1.30 K/uL Monocytes # (Auto) 0.56 K/uL Eosinophils # (Auto) 0.21 K/uL Basophils # (Auto) 0.03 K/uL RDW Standard Deviation 50.5 fL RDW Coefficient of Variation 15.6 % Immature Granulocyte % (Auto) 0.2 % Immature Granulocyte # (Auto) 0.02 K/uL Sodium Level 146 mmol/L Potassium Level 3.9 mmol/L Chloride Level 102 mmol/L Carbon Dioxide Level 38 mmol/L Anion Gap 6.0 mmol/L Blood Urea Nitrogen 51 mg/dl Creatinine 2.90 mg/dl Est Creatinine Clear Calc Drug Dose 30.3 ml/min Estimated GFR () 23.6 Estimated GFR (Non- 20.4 BUN/Creatinine Ratio 17.6 Random Glucose 87 mg/dl Calcium Level 8.7 mg/dl Magnesium Level 2.8 mg/dl Test 05/09/16 07:45 Bedside Glucose 79 mg/dl Assessment and Plan Acute on chronic diastolic CHF - Echo EF was normal, lasix 80mg BID slightly progressed pleural effusions, overall good improvement with diuresis, will continue until renal function prevents COPD exacerbation- cont xopenex levaquin, Afib- bradycardic episodes resolved after metoprolol was stopped eliquis [place] on CKD IIIb- avoid nephrotoxins such as NSAIDs, non-emergent contrast studies, & hypotension deconditioning, pt is resistent to thinking about walker, will have PT eval ambulation
[2016-05-10] VITALS (14 sets, daily range): BP systolic 114–157; BP diastolic 71–88; PULSE 80–106; TEMP 36.3–36.9; O2SAT 93–99
[2016-05-10] MEDS: LEVALBUTEROL 1.25MG/0.5ML NEB INH SCH ×4 (02:12→19:33)
[2016-05-10] MEDS: IPRATROPIUM BROMIDE NEB SOLN 0.02% 2.5 ML VIAL INH SCH ×4 (02:12→19:33)
[2016-05-10] MEDS: GUAIFENESIN 600 MG TABCR PO SCH ×2 (08:49→19:13)
[2016-05-10] MEDS: SODIUM CHLORIDE 0.65% NA SOLN 45 ML (OCEAN) SCH ×2 (08:49→19:13)
[2016-05-10] MEDS: FUROSEMIDE INJ 80 MG in SYRINGE 0 ML IV SCH (08:49)
[2016-05-10] MEDS: MICONAZOLE NITRATE POWDER 43 GM EXT PRN (08:49)
[2016-05-10] MEDS: APIXABAN 2.5 MG TAB PO SCH ×2 (08:49→19:13)
[2016-05-10] MEDS: ASPIRIN 81 MG ECTAB PO SCH (08:49)
[2016-05-10] MEDS: POTASSIUM CHLORIDE 10 MEQ TABCR PO SCH (08:50)
[2016-05-10] MEDS: ISOSORBIDE MONONITRATE 60 MG TABCR PO SCH (08:50)
[2016-05-10] MEDS: SIMVASTATIN 20 MG TAB PO SCH (08:50)
[2016-05-10] MEDS: INSULIN ASPART 100 UNITS/ML 3 ML PEN SC SCH ×4 (08:58→21:00)
[2016-05-10 10:59] LABS: BUN/CREATININE RATIO 17.3 (10-20); CALCIUM 8.9 mg/dl (8.5-10.1); CREATININE 3.2 mg/dl (0.60-1.40); POTASSIUM 3.7 mmol/L (3.5-5.1)
--- NOTE | 2016-05-10 14:01 | Progress Note ---
Subjective Date of Service: May 10, 2016. Subjective pt states he is feeling better does need a walker to walk safely, persistent le edema and chronic venous stasis changes Problem List Medical Problems: (1) CHF (congestive heart failure) Status: Chronic (2) CHF exacerbation Status: Acute Review of Systems Constitutional: No chills, No fever Respiratory: + dyspnea on exertion, + shortness of breath, No cough Cardiac: + edema, No chest pain Abdomen: No nausea, No pain, No vomiting Male : No dysuria, No urinary frequency Psychiatric: + depression symptoms, No anhedonism Objective Vital Signs Date Time Temp Pulse Resp B/P Pulse Ox O2 Delivery O2 Flow Rate FiO2 05/10/16 12:00 99 Nasal Cannula 3.0 05/10/16 11:36 36.5 82 18 136/87 99 Humidified Oxygen 3.0 05/10/16 08:12 36.4 87 18 122/88 96 Humidified Oxygen 3.0 05/10/16 08:00 96 Nasal Cannula 3.0 05/10/16 07:21 90 16 97 Nasal Cannula 3.0 05/10/16 04:00 Nasal Cannula 3.0 05/10/16 03:41 36.3 94 20 125/73 95 3.0 05/10/16 02:12 90 16 97 Nasal Cannula 3.0 05/10/16 00:18 36.3 96 20 123/81 96 3.0 05/10/16 00:01 Nasal Cannula 3.0 05/09/16 20:18 84 16 96 Nasal Cannula 3.0 05/09/16 20:00 Nasal Cannula 3.0 05/09/16 19:52 36.8 90 18 122/74 98 05/09/16 16:00 Nasal Cannula 3.0 05/09/16 15:40 36.6 66 16 125/83 96 05/09/16 14:01 90 16 98 Nasal Cannula 4.0 Physical Exam General Appearance: WD/WN Neck: supple, no JVD Respiratory/Chest: chest non-tender, lungs clear, normal breath sounds Cardiovascular: regular rate, rhythm, no murmur Abdomen: normal bowel sounds, non tender, soft Extremities: no pedal edema, no calf tenderness Neurologic/Psychiatric: alert, oriented x 3 Laboratory Results Last 24 Hours Test 05/09/16 16:31 05/09/16 20:32 05/10/16 07:31 05/10/16 09:55 Bedside Glucose 92 mg/dl 128 mg/dl 83 mg/dl Sodium Level 148 mmol/L Potassium Level 3.7 mmol/L Chloride Level 103 mmol/L Carbon Dioxide Level 40 mmol/L Anion Gap 5.0 mmol/L Blood Urea Nitrogen 55 mg/dl Creatinine 3.20 mg/dl Est Creatinine Clear Calc Drug Dose 27.4 ml/min Estimated GFR () 21.0 Estimated GFR (Non- 18.1 BUN/Creatinine Ratio 17.3 Random Glucose 94 mg/dl Calcium Level 8.9 mg/dl Test 05/10/16 11:10 Bedside Glucose 85 mg/dl Assessment and Plan Acute on chronic diastolic CHF - Echo EF was normal, , overall good improvement with diuresis, has developed acute renal failure due to diuresis will hold afternoon dose 05/10, resume po dose on 05/11 COPD exacerbation- cont xopenex levaquin, Afib- bradycardic episodes resolved after metoprolol was stopped eliquis [place] on CKD IIIb- avoid nephrotoxins such as NSAIDs, non-emergent contrast studies, & hypotension deconditioning, pt agreeable to walker
[2016-05-11] VITALS (7 sets, daily range): BP systolic 115–128; BP diastolic 68–85; PULSE 76–100; TEMP 36.4–36.7; O2SAT 94–98
[2016-05-11] MEDS: LEVALBUTEROL 1.25MG/0.5ML NEB INH SCH ×2 (01:59→07:15)
[2016-05-11] MEDS: IPRATROPIUM BROMIDE NEB SOLN 0.02% 2.5 ML VIAL INH SCH ×2 (01:59→07:15)
[2016-05-11 07:46] LABS: BUN/CREATININE RATIO 18.9 (10-20); POTASSIUM 3.7 mmol/L (3.5-5.1)
[2016-05-11] MEDS: POTASSIUM CHLORIDE 10 MEQ TABCR PO SCH (08:17)
[2016-05-11] MEDS: GUAIFENESIN 600 MG TABCR PO SCH (08:17)
[2016-05-11] MEDS: ASPIRIN 81 MG ECTAB PO SCH (08:17)
[2016-05-11] MEDS ORDERED: OXGN (08:17)
[2016-05-11] MEDS: MICONAZOLE NITRATE POWDER 43 GM EXT PRN (08:17)
[2016-05-11] MEDS: SODIUM CHLORIDE 0.65% NA SOLN 45 ML (OCEAN) SCH (08:18)
[2016-05-11] MEDS: ISOSORBIDE MONONITRATE 60 MG TABCR PO SCH (08:18)
[2016-05-11] MEDS: SIMVASTATIN 20 MG TAB PO SCH (08:18)
[2016-05-11] MEDS: APIXABAN 2.5 MG TAB PO SCH (08:18)
--- NOTE | 2016-05-11 08:18 | Discharge Instructions ---
Discharge Instructions Date of Service May 11, 2016. Admission Reason for Admission: Chf Exacerbation Pneumonia Discharge Discharge Diagnosis / Problem: acute diastolic heart failure Discharge Goals Goal(s): Diagnostic testing, Therapeutic intervention Activity Recommendations Activity Limitations: resume your previous activity . Instructions / Follow-Up Instructions / Follow-Up Call your Primary Care doctor if any of the following symptoms or problems start or get worse: * Shortness of breath or difficulty breathing * Wake up at night short of breath * Chest pain * Cough * Swelling of your hands, feet, or legs * More fatigued or tired with your normal activity * Palpitations - sudden fast heart beats WEIGHT * Weigh yourself every morning after using the bathroom. * Use the same scale. * Wear the same amount of clothing. * Write your weight down on a chart. * Call your Primary Care doctor if you gain more than 2-3 pounds in 1-2 days. MEDICATIONS * Use this discharge instruction sheet for medication instructions. * Take your medications at the time your doctor ordered. * Do not skip a dose of your medicines. * If you miss a dose of medicine, take it as soon as possible, but DO NOT DOUBLE A DOSE. * Read your medicine information when you get home. * Know all of the side effects of your medicine. If in doubt, ask your pharmacist * Call your Primary Care doctor's office if you have any side effects. * Be sure all of your doctors know what medicine and herbs you take (including cold, flu, and herbal medicine). Take the following with you to your follow-up doctor appointments: * Weight Chart * Medication List * List of questions Do not drink excessive alcohol, beer or wine. Current Hospital Diet Patient's current hospital diet: AHA Diet (Heart Healthy), Diabetes Type 2 Diet Discharge Diet Recommended Diet: Low Sodium Diet (2gm Na) Pending Studies Studies pending at discharge: no Laboratory Results Hemoglobin A1c Test 05/05/16 13:20 Range/Units Estimated Average Glucose 114 mg/dl Hemoglobin A1c 5.6 4.5-5.6 % Medical Emergencies . Who to Call and When: Call 911 or go to the Emergency Room if: * If at any time you feel your situation is an emergency * You have tightness or pain in your chest that does not go away with rest or Nitroglycerin * You are very short of breath even with rest . Non-Emergent Contact Non-Emergency issues call your: Primary Care Provider Call Non-Emergent contact if: you have any medication questions . . "Provider Documentation" section prepared by Noman Hodges. VTE Core Measure Inpt VTE Proph given/why not?: Other Anticoagulation
[2016-05-11] MEDS: INSULIN ASPART 100 UNITS/ML 3 ML PEN SC SCH ×2 (08:23→12:37)
[2016-05-11] MEDS ORDERED: FUROSEMIDE 80 MG TAB PO SCH (09:00)
--- NOTE | 2016-05-11 18:05 | Discharge Summary ---
Discharge Summary Date of Service May 11, 2016. Discharge Summary Admission Date: May 05, 2016 at 14:25 Discharge Date: May 11, 2016 Discharge Disposition: Home with services Principal Diagnosis: acute on chronic diastolic heart failure, chronic hypoxic respiratory failu Problems/Secondary Diagnoses: (1) CHF (congestive heart failure) Status: Chronic Medication Reconciliation New Medications: Oxygen (Oxygen) Gas 2 LITERS NA CONTINOUS for 365 Days Continued Medications: Albuterol Hfa (Ventolin Hfa) 200 Puffs/[id number] Mcg Aers 2 PUFFS INH Q4, #1 INHALER Albuterol Sulf (Albuterol Sulfate) 2.5 Mg/3 Ml Nebu NEB Q4 use 1 unit dose in nebulizer every 4 to 6 hours as needed Apixaban (Eliquis) 2.5 Mg Tab 2.5 MG PO BID for 30 Days, #60 TAB 2 Refills Aspirin (Ecotrin Low Strength) 81 Mg Tab 1 TAB PO DAILY for 90 Days, #90 TAB 3 Refills Fluticasone Furoate-Vilanterol (Breo Ellipta) 1 Inh Inh 1 PUFF INH DAILY Furosemide (Lasix) 40 Mg Tab 80 MG PO DAILY for 30 Days, #60 TAB 2 Refills Isosorbide Mononitrate Ext Rel (Imdur Ext Rel) 120 Mg Ertab 120 MG PO QAM, TAB Lidocaine (Lidocaine Guille) 5 % Oin 5 % EX DIRECTED APPLY TO AFFECTED AREAS DIRECTED Potassium Ext Rel (Klor-Con) 20 Meq Tabcr 10 MEQ PO DAILY, TAB Simvastatin (Zocor) 20 Mg Tab 1 TAB PO DAILY for 90 Days, #90 TAB 1 Refill Discontinued Medications: Metoprolol Succ (Toprol Xl) (Toprol-Xl) 50 Mg Tabcr 1 TAB PO DAILY for 30 Days, #30 TAB 5 Refills Discharge Exam Review of Systems: Constitutional: No chills, No fever, No sweats Respiratory: + dyspnea at rest, + dyspnea on exertion, No cough, No sputum, No wheezing Cardiovascular: + edema, No PND, No chest pain, No orthopnea Musculoskeletal: No joint pain, No muscle pain Psychiatric: + depression symptoms, No anxiety Physical Exam: General Appearance: WD/WN, + mild distress Neck: supple, no JVD Respiratory/Chest: chest non-tender, + respiratory distress (mild especially with exertion), + decreased breath sounds Cardiovascular: regular rate, rhythm, + systolic murmur Abdomen / GI: normal bowel sounds, non tender, soft, + pertinent finding ( reducible incisional hernia, large as grapefruit) Extremities: + pedal edema, + swelling, + pertinent finding (chronic venous stasis changes) Neurologic/Psychiatric: alert, oriented x 3 Hospital Course Acute on chronic diastolic CHF - Echo EF was normal, , overall good improvement with diuresis, acute renal failure resolved with reducing agressive diuresis, return to po lasix CKD III COPD exacerbation- cont xopenex levaquin, conitnue home oxygen for chronic hypoxic respiratory failure Afib- bradycardic episodes resolved after metoprolol was stopped eliquis deconditioning, pt agreeable to walker Total Time Spent: Greater than 30 minutes This includes examination of the patient, discharge planning, medication reconciliation, and communication with other providers. Discharge Instructions Please refer to the electronic Patient Visit Report (Discharge Instructions) for additional information.
== END 2016-05-11 14:39 | disposition home or self-care (01) | DRG 291 ==
LOC: ENRESERVTM → ENRESERVDT → EDBD 12:34 → C.EDC 12:36 → C.MED 14:25
PROVIDERS: ADMIT Hospitalist; ATTEND Internal Medicine
DX: I50.33 Acute on chronic diastolic (congestive) heart failure (principal); J18.9 Pneumonia, unspecified organism; N17.9 Acute kidney failure, unspecified; J44.1 Chronic obstructive pulmonary disease with (acute) exacerbation; I48.1 Persistent atrial fibrillation; Z68.42 Body mass index [BMI] 45.0-49.9, adult; J96.11 Chronic respiratory failure with hypoxia; I13.0 Hypertensive heart and chronic kidney disease with heart failure and stage 1 through stage 4 chronic kidney disease, or unspecified chronic kidney disease; E66.2 Morbid (severe) obesity with alveolar hypoventilation; I48.0 Paroxysmal atrial fibrillation; E78.00 Pure hypercholesterolemia, unspecified; I89.0 Lymphedema, not elsewhere classified; I25.10 Atherosclerotic heart disease of native coronary artery without angina pectoris; R00.1 Bradycardia, unspecified; E78.5 Hyperlipidemia, unspecified; N18.3 Chronic kidney disease, stage 3 (moderate); G47.33 Obstructive sleep apnea (adult) (pediatric); R53.81 Other malaise; I87.2 Venous insufficiency (chronic) (peripheral); Z99.81 Dependence on supplemental oxygen; I25.2 Old myocardial infarction; Z87.891 Personal history of nicotine dependence; Z79.01 Long term (current) use of anticoagulants; Z79.82 Long term (current) use of aspirin; Z79.51 Long term (current) use of inhaled steroids; Z79.899 Other long term (current) drug therapy; Z82.49 Family history of ischemic heart disease and other diseases of the circulatory system; Z99.89 Dependence on other enabling machines and devices

== ENCOUNTER → 2016-06-07 | Outpatient (CLI) | payer OTHER ==
[~2016-06-07] MED LIST changes: -DEXT1CAP; +FLUT1INH INH; -METO50TA7 PO; +OXGN
[2016-06-07 17:17] LABS: BLOOD UREA NITROGEN 27 mg/dl (7-18); CALCIUM 9.2 mg/dl (8.5-10.1); CARBON DIOXIDE 32 mmol/L (21-32); CHLORIDE 103 mmol/L (98-107); GLUCOSE 78 mg/dl (70-99); SODIUM 142 mmol/L (136-145)
== END | disposition home or self-care (01) ==
LOC: C.LAB1850 15:13
PROVIDERS: ATTEND Physician Assistant
DX: N18.9 Chronic kidney disease, unspecified (principal)

== ENCOUNTER → 2017-01-27 | Outpatient (CLI) | payer OTHER ==
[2017-01-27 12:44] LABS: BASO % 0.4 %; BASO ABS # 0.04 K/uL (0-0.2); COMPLETE YES; EOS % 2.5 %; HEMATOCRIT 37.7 % (42-52); IG% 0.2 %; LYMPH % 15.3 %; LYMPH ABS # 1.51 K/uL (1.2-3.4); MEAN CELL VOLUME 86.3 fL (80-100); MEAN CORPUSCULAR HEMOGLOBIN 28.1 pg (25-34); MEAN CORPUSCULAR HGB CONC 32.6 g/dl (32-36); MONO % 8.4 %; NEUT % 73.2 %; PLATELET COUNT 270 K/uL (130-400); RED BLOOD COUNT 4.37 M/uL (4.7-6.1); WHITE BLOOD COUNT 9.84 K/uL (4.8-10.8)
[2017-01-27 12:48] LABS: ESTIMATED AVERAGE GLUCOSE 108 mg/dl; HA1C FLAG Normal (Normal)
[2017-01-27 12:52] LABS: ALT/SGPT 16 U/L (12-78); AST/SGOT 12 U/L (15-37); BLOOD UREA NITROGEN 35 mg/dl (7-18); BUN/CREATININE RATIO 13.6 (10-20); CARBON DIOXIDE 30 mmol/L (21-32); CHLORIDE 104 mmol/L (98-107); CREATININE 2.61 mg/dl (0.60-1.40); GLUCOSE 89 mg/dl (70-99); POTASSIUM 4.4 mmol/L (3.5-5.1); SODIUM 137 mmol/L (136-145)
[2017-01-27 12:55] LABS: ALB/GLOB RATIO 0.6 (0.9-2); ALKALINE PHOSPHATASE 122 U/L (45-117); CHOLESTEROL 104 mg/dl (0-200); CHOLESTEROL/HDL RATIO 2.2; HDL CHOLESTEROL 47 mg/dl; LDL CHOLESTEROL CALCULATED 43 mg/dl; TRIGLYCERIDES 71 mg/dl (0-150); VERY LOW DENSITY LIPOPROT CALC 14 mg/dl
== END | disposition home or self-care (01) ==
LOC: C.LABBFT 11:18
PROVIDERS: ATTEND Internal Medicine
DX: E11.22 Type 2 diabetes mellitus with diabetic chronic kidney disease (principal); N18.9 Chronic kidney disease, unspecified; E78.5 Hyperlipidemia, unspecified

== ENCOUNTER → 2017-09-06 | Outpatient (CLI) | payer OTHER ==
[~2017-09-06] MED LIST changes: +POTA-639 PO; -POTA20TA16 PO
--- NOTE | 2017-09-06 11:56 | DIAGNOSTIC IMAGING REPORT ---
RENAL ULTRASOUND HISTORY: Chronic kidney disease. R60.9 [id number] [id number] Diabetes [id number] [place] COMPARISON: Renal ultrasound 05/08/2016. FINDINGS: Right kidney: 10.9 cm. No hydronephrosis. Increased echogenicity, unchanged. There are few small cysts with the largest measuring 1.6 cm. These are also unchanged. Left kidney: 10.2 cm. No hydronephrosis. Increased echogenicity, unchanged. There are few small cysts with the largest measuring 1.9 cm. These are also unchanged. Bladder: No bladder wall thickening. The bilateral ureteral jets were identified. IMPRESSION: 1. No significant change compared the prior study. 2. Increased cortical echogenicity bilaterally consistent with medical renal disease. 3. Bilateral renal cysts. Electronically signed by: John Wagner M.D. 09/06/2017 11:54 AM Dictated Date/Time: 09/06/2017 11:49 AM
== END | disposition home or self-care (01) ==
LOC: C.ULTR 10:59
PROVIDERS: ATTEND Internal Medicine Nephrology
DX: E11.9 Type 2 diabetes mellitus without complications (principal); I10 Essential (primary) hypertension; I50.9 Heart failure, unspecified; N18.4 Chronic kidney disease, stage 4 (severe); R60.9 Edema, unspecified

== ENCOUNTER → 2017-09-15 | Outpatient (CLI) | payer OTHER ==
[2017-09-15 12:32] LABS: BLOOD UREA NITROGEN 54 mg/dl (7-18); CALCIUM 8.5 mg/dl (8.5-10.1); CARBON DIOXIDE 33 mmol/L (21-32); GLUCOSE 108 mg/dl (70-99); POTASSIUM 3.6 mmol/L (3.5-5.1); SODIUM 137 mmol/L (136-145)
== END | disposition home or self-care (01) ==
LOC: C.LABBFT 10:49
PROVIDERS: ATTEND Physician Assistant
DX: N18.9 Chronic kidney disease, unspecified (principal)

== ENCOUNTER → 2017-09-20 | Outpatient (CLI) | payer OTHER ==
[2017-09-20 12:42] LABS: HEMATOCRIT 31.6 % (42-52); HEMOGLOBIN 9.5 g/dL (14.0-18.0); MEAN CELL VOLUME 79.4 fL (80-100); MEAN CORPUSCULAR HEMOGLOBIN 23.9 pg (25-34); MEAN CORPUSCULAR HGB CONC 30.1 g/dl (32-36); MEAN PLATELET VOLUME 8.9 fL (7.4-10.4); PLATELET COUNT 292 K/uL (130-400); RED CELL DISTRIBUTION WIDTH CV 18.6 % (11.5-14.5); RED CELL DISTRIBUTION WIDTH SD 54.2 fL (36.4-46.3); WHITE BLOOD COUNT 8.37 K/uL (4.8-10.8)
[2017-09-20 12:58] LABS: ALBUMIN 2.7 gm/dl (3.4-5.0); ALKALINE PHOSPHATASE 96 U/L (45-117); ALT/SGPT 13 U/L (12-78); AST/SGOT 14 U/L (15-37); BLOOD UREA NITROGEN 66 mg/dl (7-18); CARBON DIOXIDE 34 mmol/L (21-32); CREATININE 3.27 mg/dl (0.60-1.40); GLUCOSE 85 mg/dl (70-99); POTASSIUM 3.6 mmol/L (3.5-5.1); SODIUM 139 mmol/L (136-145); TOTAL PROTEIN 7.8 gm/dl (6.4-8.2); TRANSFERRIN 221 mg/dl (200-360)
== END | disposition home or self-care (01) ==
LOC: C.LABBFT 08:06
PROVIDERS: ATTEND Internal Medicine Interventional Cardiology
DX: R60.9 Edema, unspecified (principal); E11.9 Type 2 diabetes mellitus without complications; I50.9 Heart failure, unspecified; N18.4 Chronic kidney disease, stage 4 (severe); D64.9 Anemia, unspecified; R07.9 Chest pain, unspecified; I10 Essential (primary) hypertension

== ENCOUNTER → 2017-10-05 | Outpatient (CLI) | payer OTHER ==
--- NOTE | 2017-10-05 14:04 | DIAGNOSTIC IMAGING REPORT ---
R HAND MIN 3 VIEWS ROUTINE CLINICAL HISTORY: 77 years-old Male presenting with S69.91XA Injury of hand, [id number] Localized swelling on right. TECHNIQUE: Frontal, oblique, and lateral views of the right hand were obtained. COMPARISON: None. FINDINGS: Diffuse soft tissue swelling. Allowing for osteopenia, no osseous erosion or periosteal reaction. No soft tissue emphysema. Osteophytosis noted at the first carpometacarpal articulation. Ossicle noted at the ulnar base of the fifth metacarpal, possibly accessory os versus old injury. No acute fracture or malalignment. IMPRESSION: 1. Diffuse soft tissue swelling. Correlate clinically to exclude cellulitis. No radiographic evidence of osteomyelitis allowing for osteopenia. 2. Degenerative changes of the first CMC. 3. No acute osseous injury. Electronically signed by: Luc Esposito M.D. 10/05/2017 2:03 PM Dictated Date/Time: 10/05/2017 2:01 PM
== END | disposition home or self-care (01) ==
LOC: C.RAD1850 13:38
PROVIDERS: ATTEND Internal Medicine
DX: R22.31 Localized swelling, mass and lump, right upper limb (principal); S69.91XA Unspecified injury of right wrist, hand and finger(s), initial encounter; X58.XXXA Exposure to other specified factors, initial encounter; M79.9 Soft tissue disorder, unspecified; M18.11 Unilateral primary osteoarthritis of first carpometacarpal joint, right hand

== ENCOUNTER → 2017-10-11 | Outpatient (CLI) | payer OTHER | END | disposition home or self-care (01) | LOC: C.LABBFT 09:32 | PROVIDERS: ATTEND Internal Medicine Nephrology | DX: R60.9 Edema, unspecified (principal); I13.0 Hypertensive heart and chronic kidney disease with heart failure and stage 1 through stage 4 chronic kidney disease, or unspecified chronic kidney disease; E11.22 Type 2 diabetes mellitus with diabetic chronic kidney disease; I50.9 Heart failure, unspecified; N18.4 Chronic kidney disease, stage 4 (severe); L03.113 Cellulitis of right upper limb ==

== ENCOUNTER 2018-12-29 11:34 | Inpatient (IN) ==
[2018-12-29] MEDS ORDERED: cefTRIAXone SODIUM 2,000 MG/70 ML BAG IV STA (11:57)
[2018-12-29 12:26] LABS: Basophils # (auto) 0.02 K/uL (0-0.2); Basophils % (auto) 0.2 %; Eosinophils # (auto) 0.04 K/uL (0-0.5); Eosinophils % (auto) 0.5 %; Hematocrit (blood only) 31.1 % (42-52); Immature Granulocytes # (auto) 0.02 K/uL (0.00-0.02); Immature Granulocytes % (auto) 0.2 %; Lymphocytes # (auto) 1.25 K/uL (1.2-3.4); Lymphocytes % (auto) 14.8 %; Mean Corpuscular Hemoglobin 27.9 pg (25-34); Mean Corpuscular Hgb Conc 32.2 g/dL (32-36); Mean Corpuscular Volume 86.6 fL (80-100); Mean Platelet Volume 8.1 fL (7.4-10.4); Monocytes # (auto) 0.71 K/uL (0.11-0.59); Monocytes % (auto) 8.4 %; Neutrophils # (auto) 6.38 K/uL (1.4-6.5); Neutrophils % (auto) 75.9 %; Platelet Count 184 K/uL (130-400); RDW Coefficient of Variation 17.2 % (11.5-14.5); RDW Standard Deviation 54.6 fL (36.4-46.3); Red Blood Count 3.59 M/uL (4.7-6.1); White Blood Count 8.42 K/uL (4.8-10.8)
--- NOTE | 2018-12-29 12:35 | XRay Report ---
XR knee RT 3V CLINICAL HISTORY: right knee pain COMPARISON: None. DISCUSSION: There are advanced osteoarthritic changes. There is marked narrowing of the medial joint compartment. There is mild lateral translation of the tibia with respect to the femur. There are no a cute fractures. There is no radiographic evidence of significant joint effusion. There is a sclerotic lesion within the distal femoral metaphysis likely representing either a bone infarct, or chondral l esion.. IMPRESSION: 1. Advanced osteoarthritic change 2. No acute fractures 3. 4 cm bone infarct versus chondral lesion within the distal femoral metaphysis Electronically signed by: Roberto Herrera M.D. 12/29/2018 12:34 PM
[2018-12-29 12:43] LABS: Albumin Level 2.7 gm/dl (3.4-5.0); BUN Creatinine Ratio 17.9 (10-20); Calcium 8.9 mg/dl (8.5-10.1); Creatinine Clr Calc Pharmacy 25.4 ml/min; Est GFR (African American) 21.1; Est GFR (Non-African American) 18.2; Potassium 3.6 mmol/L (3.5-5.1)
[2018-12-29 12:46] LABS: Albumin Globulin Ratio 0.5 (0.9-2); Bilirubin,Total 0.8 mg/dl (0.2-1); Globulin 5.1 gm/dl (2.5-4.0); Total Protein 7.8 gm/dl (6.4-8.2)
[2018-12-29] MEDS ORDERED: ACETAMINOPHEN 500 MG TAB PO STA (13:15)
[2018-12-29 13:35] LABS: Appearance Urine Clear (Clear); Bacteria Urine Automated Negative (Negative); Bilirubin Urine Negative (Negative); Blood Urine Negative (Negative); Color Urine Yellow; Glucose Urine UA Negative (Negative); Ketones Urine Negative (Negative); Leukocyte Esterase Urine Negative (Negative); Nitrite Urine Negative (Negative); Protein Urine 1+ (Negative); Specific Gravity Urine 1.013 (1.000-1.030); Urobilinogen Urine Negative (Negative)
[2018-12-29] MEDS ORDERED: FUROSEMIDE 40 MG/4 ML VIAL IV STA (13:45)
--- NOTE | 2018-12-29 13:45 | XRay Report ---
XR chest 1V portable CLINICAL HISTORY: hypoxia, leg swelling COMPARISON STUDY: 05/05/2016 FINDINGS: The heart is enlarged. There is asymmetric right greater than left pulmonary edema. There a re small bilateral pleural effusions. There is no lobar consolidation[ IMPRESSION: Cardiomegaly and radiographic evidence of pulmonary edema. Small bilateral pleural effusi ons Electronically signed by: Roberto Herrera M.D. 12/29/2018 1:43 PM
--- NOTE | 2018-12-29 14:42 | History & Physical Report ---
Date of Service December 29, 2018 Assessment & Plan (1) CHF (congestive heart failure): Noted on CXR BNP elevated B/L LE at baseline, however is worse today Given lasix 40mg IV in the ED, will continue with home diuretics and add bumex 1mg BID for now Monitor renal function ECHO scheduled with outpt cardiology for 02/2019, will obtain now given worsen sx Last ECHO 08/2017 with EF 60-65% and moderate to severe (2) Bilateral cellulitis of lower leg: Pt does have findings c/w chronic dermatitis, however per family the appearance is worse Weeping ulcerations noted as well Started on rocephin in the ED, will continue WCC c/s pending WBC, lactic acid WNL (3) COPD (chronic obstructive pulmonary disease): Mild wheezing noted, mild exacerbation Nebs scheduled, will hold on steroids for now Home O2 use, baseline 2L (4) Ambulatory dysfunction: PT/OT pending (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 Baez on 12/31 Will hold on c/s for now given stable cr Monitor with increased diuresis (8) Hypertension: continue home meds (9) Lymphedema: Appears that PCP was attempting to obtain auth for home compression pumping Pt would likely benefit from this on d/c (10) Leg pain, right: Knee XR as noted, uncertain findings and will likely need f/u imaging with possible outpt ortho c/s Will need set up for this on d/c (11) Obstructive sleep apnea: Uses NC HS, continue (12) Venous stasis dermatitis: Chronic, monitor (13) Atrial fibrillation: continue home meds, eliquis (14) Hyperlipidemia: continue home meds (15) Myocardial infarction: Hx of [place] x2, 21 yrs ago and 6 yrs ago Denies stents Aspirin 81mg (16) Tobacco use disorder: Smokeless tobacco, declines nicotine patch (17) DVT prophylaxis: Eliquis History of Present Illness Primary Care Provider: Umang Rizzo MD 78 y/o M c/o LE pain, redness, and swelling. Per pt and family, pt always has some amount of b/l LE redness, swelling, and pain, however over the last week it has started to increase. It has been so much worse that he has not been able to ambulate at all the last 3-4 days. Pt has b/l regions of open ulceration and weeping, which is also not typical for him. He also has swelling into the thighs, which is new. He also notes a new pain in the lateral R knee. Pt has fallen in the past, but not in the last few months. He can tow picker his L LE a bit, but cannot tow picker the R at all. Pt has increased SOB. He wears his O2 most of the time, but not if he is walking around due to issues carrying the portable tank. Pt denies fever, chest pain, abd pain, n/v. Pt had an episode of diarrhea last week, but bowel movements have been normal since. He is eating without issue. Pt was to have a routine f/u with Dr. Baez on 12/31. Allergies Allergy/AdvReac Type Severity Reaction Status Date / Time No Known Allergies Allergy Unverified 12/29/18 12:53 Home Medications Home Medications Medication Instructions Recorded Confirmed Type acetaminophen 500 mg tablet 500 mg PO Q6H PRN tab 07/05/18 12/29/18 History Oxygen Home #1 ea 08/06/18 12/29/18 Rx amlodipine 5 mg tablet 5 mg PO QAM #30 tab 08/06/18 12/29/18 History apixaban 2.5 mg tablet 2.5 mg PO BID #60 tab 08/06/18 12/29/18 Rx ergocalciferol (vitamin D2) 50,000 50,000 units PO MONTHLY cap 08/06/18 12/29/18 History unit capsule isosorbide mononitrate ER 120 mg 120 mg PO QAM #90 tab 08/06/18 12/29/18 History tablet,extended release 24 hr simvastatin 20 mg tablet 20 mg PO QAM #30 tab 08/06/18 12/29/18 History torsemide 20 mg tablet 40 mg PO BID #120 tab 08/06/18 12/29/18 History aspirin 81 mg tablet,delayed 81 mg PO QAM tab 10/03/18 12/29/18 History release triamcinolone acetonide 0.1 % 1 appln TOP BID #80 gm 11/21/18 12/29/18 Rx topical ointment albuterol sulfate 2.5 mg INHALATION Q4H PRN 12/29/18 12/29/18 History albuterol sulfate [Ventolin HFA] 2 puffs INH Q4H PRN 12/29/18 12/29/18 History fluticasone furoate-vilanterol 1 puffs INH QAM 12/29/18 12/29/18 History [Breo Ellipta] iron 18 mg PO QAM 12/29/18 12/29/18 History potassium chloride 10 meq PO QAM 12/29/18 12/29/18 History Past Med/Surg History Medical History Anemia (Chronic) Anxiety (Acute) Aortic stenosis (Acute) Arthritis (Acute) Asthma (Acute) Cervicalgia (Acute) Chronic kidney disease, stage IV (severe) (Chronic) Depression (Acute) Diabetes mellitus (Acute) Hypertension (Chronic) Lymphedema (Chronic) Obstructive sleep apnea (Acute) Venous stasis dermatitis (Acute) Vitamin D deficiency (Chronic) CHF (congestive heart failure) (Chronic) COPD (chronic obstructive pulmonary disease) (Chronic) Atrial fibrillation Hyperlipidemia (Chronic) Myocardial infarction CHF exacerbation Pneumonia Family History Mother Myocardial infarction Brother Myocardial infarction Father Unknown family medical history Other Family history non-contributory Social History marital status: Current Living Situation: Spouse current occupational status: retired Feels Safe at Home: Yes Smoking Status: Never smoker Tobacco Type: smokeless tobacco ; Hx Alcohol Use: No Hx Substance Use: No Review of Systems Review of Systems: Pertinent positives and negatives reviewed in HPI--all others negative Physical Exam Constitutional: WD/WN, vitals as above Eyes: normal visual frankel by confrontation and + anicteric sclerae Neck: normal visual inspection and trachea midline Respiratory: + labored breathing; no respiratory distress Auscultation: + crackles and + wheezes Cardiovascular: Rate/Rhythm: regular rate and regular rhythm Gastrointestinal (Abdomen): Inspection/Auscultation: abdomen not distended Percussion/Palpation: abdomen soft; abdomen nontender Musculoskeletal: Head/Neck/Chest: normocephalic and head atraumatic b/l LE edema into the thighs, peripheral pulses intact Skin: no rashes, warm and dry b/l LE redness to upper calf with multiple regions of ulcerated and weeping tissue, some of the redness is c/w chronic dermatitis Neurologic: awake; not confused Speech / Cognition: normal speech Psychiatric: A+Ox3, euthymic affect Results & Data Vital Signs (Past 12 Hours) Vital Signs Temp Pulse Pulse Resp BP BP Pulse Ox 12/29/18 13:28 81 20 149/88 H 94 12/29/18 11:24 36.6 C 96 H 20 152/86 H 89 L Diagnostic Findings CXR: pulm edema R Knee XR: 1. Advanced osteoarthritic change 2. No acute fractures 3. 4 cm bone infarct versus chondral lesion within the distal femoral metaphysis Code Status & VTE Plan Code Status Full code, although pt states no prolonged mechanical life support, feeding tubes, etc VTE Prophylaxis Plan VTE Prophylaxis will be ordered: Yes PG Care Time/CCT Total # of Minutes Spent Total Time Spent with Patient: Total time spent is greater than 50% in coordination of care (as documented) at patient's floor/unit and/or counseling patient: (1) CHF (congestive heart failure) Heart failure chronicity: unspecified Heart failure type: unspecified Qualified Code(s): I50.9 - Heart failure, unspecified (2) Hypertension Hypertension type: essential hypertension Qualified Code(s): I10 - Essential (primary) hypertension (3) Hyperlipidemia Hyperlipidemia type: other hyperlipidemia Qualified Code(s): E78.49 - Other hyperlipidemia; E78.4 - Other hyperlipidemia
--- NOTE | 2018-12-29 14:51 | Emergency Department Note ---
Entered by Nydia Perez acting as a scribe for ED Provider Note CHIEF COMPLAINT: Swelling/Edema in bilateral lower extremities HISTORY OF PRESENT ILLNESS: The patient is a 78 year old male who presents to the Emergency Room with comp laints of persistent and worsening bilateral leg pain that exacerbated 2 days ago. The patient reports that the legs are becoming more swollen and redder than his baseline. He states that he has been unable to walk for the past two days secondary to the pain in his legs. He rates the pain as 10/10 today. He denies taking any pain medication. He notes that his right knee gave out from underneath him secondary to weakness recently which caused him to fall. Pt denies LOC, headache, fevers, chills, diaphoresis, visual changes, neck pain, chest pain, breathing difficulties, nausea, vomiting, abdominal pain, back pain, melena, hematochezia, urinary symptoms, numbness, lymphadenopathy, or other c omplaints. REVIEW OF SYSTEMS: See HPI for pertinent positives and negatives. A total of ten systems were reviewed and were otherwise negative. PMHx/PSHx: Anemia, anxiety, aortic stenosis, arthritis, asthma, CKD stage IV, depression , DM, HTN, lymphedema, sleep apnea, venous stasis dermatitis, CHF, COPD, atrial fi brillation, HLD, NE, pneumonia SOCIAL HISTORY: Patient lives at home. He is and retired. PHYSICAL EXAM: GENERAL: Awake, alert, well-appearing, in no distress HENT: Normocephalic, atraumatic. Oropharynx unremarkable. EYES: PERRL. Normal conjunctiva. Sclera non-icteric. NECK: Inspection normal. Non-tender. Supple. No nuchal rigidity. FROM. No m asses. RESPIRATORY: Clear to auscultation. No wheezes. No rales. Normal respiratory effort. CARDIAC: Normal rate. Normal rhythm. No rubs. Extremities warm and well perfused. Pulses equal. No JVD. Systolic injection murmur. GI: Soft, non-distended. No tenderness to palpation. No rebound or guarding. No masses. RECTAL: Deferred. MUSCULOSKELETAL: Atraumatic. Chest examination reveals no tenderness. The back is symmetrical on inspection without obvious abnormality. There is no CVA tenderness to palpation. No joint edema. LOWER EXTREMITIES: Distal bilateral lower extremities are tender to palpation. Erythema to bilateral legs with 4+ edema. Chronic skin changes. Tenderness to palpation of right knee. NEURO: Normal sensorium. No sensory or motor deficits noted. SKIN: No rash or jaundice noted. EMERGENCY DEPARTMENT COURSE: 1146: The patient was evaluated in room C09, and a complete history and physical examination were performed. 1347: I updated the patient on his current lab and imaging results. 1352: I discussed the patients case with Dr. Sol, [facility] Hospitalist, who will evaluate the patient for further management and care. 1400: Upon reevaluation, the patient is resting comfortably. I discussed laboratory and radiographic results with the patient. He verbalized agreement of the treatment plan. The patient will be evaluated for further management and care. MEDICAL DECISION MAKING: Triage Nursing notes reviewed and agree them. Additional history obtained from the family. The patient's history was concerning for swelling and pain in the leg. Differential diagnosis: Etiologies such as DVT, joint effusion, infection, trauma, muscular, lymphedema, idiopathic, CHF, as well as others were entertained.. Physical examination: The physical examination revealed no signs of infection. Neurovascularly intact. ER treatment provided: Patient initially declined analgesia. He then wanted something mild. Oral Tylenol given. IV Rocephin IV Lasix 40 mg On reassessment the patient felt better. Diagnostics interpreted by me: The labs revealed an unremarkable CBC except for mild stable anemia. Chemistry panel revealed an elevated creatinine but consistent with baseline. Lactate within normal limits. BNP markedly elevated concerning for CHF. ECG: Twelve-lead ECG was performed and revealed atrial fibrillation at a rate of 80 bpm. There is left axis deviation and incomplete left bundle branch block. Prolonged QT is present. PVCs are noted. No ST elevation or ST depression. Indication: CHF. Imaging studies: Chest x-ray and right knee x-ray performed. Chronic appearing findings in the right knee. Findings consistent with CHF on chest x-ray. Patient has volume overload. He has redness and foul-smelling drainage from the legs bilaterally. This is concerning for cellulitis. Further management in the hospital will be necessary as the patient cannot ambulate well at all. Consultation: A consultation was placed with the hospitalist. The case was discussed and diagnostics were reviewed. The patient was evaluated in the ER for further treatment. IMPRESSION: Lower extremity cellulitis, CHF, ambulatory dysfunction PLAN: Being evaluated by a hospitalist The scribe's documentation has been prepared under my direction and personally reviewed by me in its entirety. I confirm that the note above accurately re flects all work, treatment, procedures, and medical decision making performed by me. Impression & Plan Bilateral cellulitis of lower leg, CHF (congestive heart failure), Ambulatory dysfunction Past Med/Surg History Medical History Anemia (Chronic) Anxiety (Acute) Aortic stenosis (Acute) Arthritis (Acute) Asthma (Acute) Cervicalgia (Acute) Chronic kidney disease, stage IV (severe) (Chronic) Depression (Acute) Diabetes mellitus (Acute) Hypertension (Chronic) Lymphedema (Chronic) Obstructive sleep apnea (Acute) Venous stasis dermatitis (Acute) Vitamin D deficiency (Chronic) CHF (congestive heart failure) (Chronic) COPD (chronic obstructive pulmonary disease) (Chronic) Atrial fibrillation Hyperlipidemia (Chronic) Myocardial infarction CHF exacerbation Pneumonia Family History Mother Myocardial infarction Brother Myocardial infarction Father Unknown family medical history Other Family history non-contributory Social History marital status: Current Living Situation: Spouse current occupational status: retired Feels Safe at Home: Yes Smoking Status: Never smoker Tobacco Type: smokeless tobacco ; Hx Alcohol Use: No Hx Substance Use: No Results & Data Vital Signs Vital Signs - 24 hr 12/29/18 11:24 12/29/18 13:28 12/29/18 14:42 Temperature 36.6 C Temperature Source Oral Sepsis Recent Fever Within 48 Hours No Sepsis New/Unexplained Change in Mental Status No Sepsis Action Taken by Nursing No Action Required Pulse Rate 96 H Pulse Rate [Right Finger] 81 81 Respiratory Rate 20 20 16 Respiratory Effort / Characteristics Non-Labored Spontaneous Non-Labored Spontaneous Non-Labored Spontaneous Respiratory Depth Normal Normal Normal Respiratory Pattern Regular Regular Regular Blood Pressure 152/86 H Blood Pressure [Right Arm] 149/88 H 162/84 H Blood Pressure Mean 108 Blood Pressure Mean [Right Arm] 108 110 Blood Pressure Position Lying Blood Pressure Position [Right Arm] Lying Lying Pulse Oximetry 89 L 94 95 Oxygen Delivery Method Room Air Nasal Cannula Nasal Cannula Oxygen Flow Rate 2 2 Home Medications Current Medication List: was personally reviewed by me Laboratory Data Attestation: I reviewed the patient's lab results. Result diagrams: 12/29/18 12:12 12/29/18 12:12 Lab Results 12/29/18 12/29/18 12/29/18 Range/Units 12:12 12:12 12:12 WBC 8.42 (4.8-10.8) K/uL RBC 3.59 L (4.7-6.1) M/uL Hgb 10.0 L (14.0-18.0) g/dL Hct 31.1 L (42-52) % MCV 86.6 (80-100) fL MCH 27.9 (25-34) pg MCHC 32.2 (32-36) g/dL RDW Std Deviation 54.6 H (36.4-46.3) fL RDW Coeff of Jarod 17.2 H (11.5-14.5) % Plt Count 184 (130-400) K/uL MPV 8.1 (7.4-10.4) fL Immature Gran % (Auto) 0.2 % Neut % (Auto) 75.9 % Lymph % (Auto) 14.8 % Roosevelt % (Auto) 8.4 % Eos % (Auto) 0.5 % Baso % (Auto) 0.2 % Immature Gran # (Auto) 0.02 (0.00-0.02) K/uL Neut # (Auto) 6.38 (1.4-6.5) K/uL Lymph # (Auto) 1.25 (1.2-3.4) K/uL Roosevelt # (Auto) 0.71 H (0.11-0.59) K/uL Eos # (Auto) 0.04 (0-0.5) K/uL Baso # (Auto) 0.02 (0-0.2) K/uL Sodium 142 (136-145) mmol/L Potassium 3.6 (3.5-5.1) mmol/L Chloride 106 (98-107) mmol/L Carbon Dioxide 28 (21-32) mmol/L Anion Gap 8.0 (3-11) BUN 56 H (7-18) mg/dl Creatinine 3.13 H (0.6-1.4) mg/dl Est Cr Clr Drug Dosing 25.4 ml/min Est GFR ( Amer) 21.1 Est GFR (Non-Af Amer) 18.2 BUN/Creatinine Ratio 17.9 (10-20) Glucose 99 (70-99) mg/dl POC Lactic Acid Mitch (0.90-1.70) mmol/L Calcium 8.9 (8.5-10.1) mg/dl Total Bilirubin 0.8 (0.2-1) mg/dl AST 9 L (15-37) U/L ALT 12 (12-78) U/L Alkaline Phosphatase 139 H (45-117) U/L NT-Pro-B Natriuret Pep 34262 H (0-1800) pg/ml Total Protein 7.8 (6.4-8.2) gm/dl Albumin 2.7 L (3.4-5.0) gm/dl Globulin 5.1 H (2.5-4.0) gm/dl Albumin/Globulin Ratio 0.5 L (0.9-2) Urine Color Urine Appearance (Clear) Urine pH (4.5-7.5) Ur Specific [place] (1.000-1.030) Urine Protein (Negative) Urine Glucose (UA) (Negative) Urine Ketones (Negative) Urine Blood (Negative) Urine Nitrite (Negative) Urine Bilirubin (Negative) Urine Urobilinogen (Negative) Ur Leukocyte Esterase (Negative) Urine WBC (Auto) (0-5) /hpf Urine RBC (Auto) (0-4) /hpf U Hyaline Cast (Auto) (0-5) /lpf U Epithel Cells (Auto) (0-5) /lpf Urine Bacteria (Auto) (Negative) 12/29/18 12/29/18 Range/Units 12:19 13:15 WBC (4.8-10.8) K/uL RBC (4.7-6.1) M/uL Hgb (14.0-18.0) g/dL Hct (42-52) % MCV (80-100) fL MCH (25-34) pg MCHC (32-36) g/dL RDW Std Deviation (36.4-46.3) fL RDW Coeff of Jarod (11.5-14.5) % Plt Count (130-400) K/uL MPV (7.4-10.4) fL Immature Gran % (Auto) % Neut % (Auto) % Lymph % (Auto) % [place] % (Auto) % Eos % (Auto) % Baso % (Auto) % Immature Gran # (Auto) (0.00-0.02) K/uL Neut # (Auto) (1.4-6.5) K/uL Lymph # (Auto) (1.2-3.4) K/uL Roosevelt # (Auto) (0.11-0.59) K/uL Eos # (Auto) (0-0.5) K/uL Baso # (Auto) (0-0.2) K/uL Sodium (136-145) mmol/L Potassium (3.5-5.1) mmol/L Chloride (98-107) mmol/L Carbon Dioxide (21-32) mmol/L Anion Gap (3-11) BUN (7-18) mg/dl Creatinine (0.6-1.4) mg/dl Est Cr Clr Drug Dosing ml/min Est GFR ( Amer) Est GFR (Non-Af Amer) BUN/Creatinine Ratio (10-20) Glucose (70-99) mg/dl POC Lactic Acid Mitch 0.86 L (0.90-1.70) mmol/L Calcium (8.5-10.1) mg/dl Total Bilirubin (0.2-1) mg/dl AST (15-37) U/L ALT (12-78) U/L Alkaline Phosphatase (45-117) U/L NT-Pro-B Natriuret Pep (0-1800) pg/ml Total Protein (6.4-8.2) gm/dl Albumin (3.4-5.0) gm/dl Globulin (2.5-4.0) gm/dl Albumin/Globulin Ratio (0.9-2) Urine Color Yellow Urine Appearance Clear (Clear) Urine pH 5.0 (4.5-7.5) Ur Specific [place] 1.013 (1.000-1.030) Urine Protein 1+ H (Negative) Urine Glucose (UA) Negative (Negative) Urine Ketones Negative (Negative) Urine Blood Negative (Negative) Urine Nitrite Negative (Negative) Urine Bilirubin Negative (Negative) Urine Urobilinogen Negative (Negative) Ur Leukocyte Esterase Negative (Negative) Urine WBC (Auto) 1-5 (0-5) /hpf Urine RBC (Auto) 5-10 H (0-4) /hpf U Hyaline Cast (Auto) 1-5 (0-5) /lpf U Epithel Cells (Auto) 5-10 H (0-5) /lpf Urine Bacteria (Auto) Negative (Negative) Administered Medications Discontinued Medications Acetaminophen (Tylenol) 1,000 mg PO NOW STA Stop: 12/29/18 13:16 Last Admin: 12/29/18 13:27 Dose: 1,000 mg Documented by: [id number] Furosemide (Lasix) 40 mg IV NOW STA Stop: 12/29/18 13:46 Last Admin: 12/29/18 14:41 Dose: 40 mg Documented by: [id number] Ceftriaxone Sodium (Rocephin) 2,000 mg in 70 mls @ 140 mls/hr IV NOW STA Stop: 12/29/18 12:26 Last Infusion: 12/29/18 13:19 Dose: 0 mls/hr Documented by: [id number] Admin: 12/29/18 12:49 Dose: 140 mls/hr Documented by: [id number] Blood Pressure Blood Pressure Findings: Elevated blood pressure Blood Pressure Disposition: Referred to patients primary care provider Medical Decision Making Medical Records Attestation: I reviewed the patient's medical records. Home Medications Current Medication List: was personally reviewed by me Laboratory Data Attestation: I reviewed the patient's lab results. Result diagrams: 12/29/18 12:12 12/29/18 12:12 Lab Results 12/29/18 12/29/18 12/29/18 Range/Units 12:12 12:12 12:12 WBC 8.42 (4.8-10.8) K/uL RBC 3.59 L (4.7-6.1) M/uL Hgb 10.0 L (14.0-18.0) g/dL Hct 31.1 L (42-52) % MCV 86.6 (80-100) fL MCH 27.9 (25-34) pg MCHC 32.2 (32-36) g/dL RDW Std Deviation 54.6 H (36.4-46.3) fL RDW Coeff of Jarod 17.2 H (11.5-14.5) % Plt Count 184 (130-400) K/uL MPV 8.1 (7.4-10.4) fL Immature Gran % (Auto) 0.2 % Neut % (Auto) 75.9 % Lymph % (Auto) 14.8 % [place] % (Auto) 8.4 % Eos % (Auto) 0.5 % Baso % (Auto) 0.2 % Immature Gran # (Auto) 0.02 (0.00-0.02) K/uL Neut # (Auto) 6.38 (1.4-6.5) K/uL Lymph # (Auto) 1.25 (1.2-3.4) K/uL [place] # (Auto) 0.71 H (0.11-0.59) K/uL Eos # (Auto) 0.04 (0-0.5) K/uL Baso # (Auto) 0.02 (0-0.2) K/uL Sodium 142 (136-145) mmol/L Potassium 3.6 (3.5-5.1) mmol/L Chloride 106 (98-107) mmol/L Carbon Dioxide 28 (21-32) mmol/L Anion Gap 8.0 (3-11) BUN 56 H (7-18) mg/dl Creatinine 3.13 H (0.6-1.4) mg/dl Est Cr Clr Drug Dosing 25.4 ml/min Est GFR ( Amer) 21.1 Est GFR (Non-Af Amer) 18.2 BUN/Creatinine Ratio 17.9 (10-20) Glucose 99 (70-99) mg/dl POC Lactic Acid Mitch (0.90-1.70) mmol/L Calcium 8.9 (8.5-10.1) mg/dl Total Bilirubin 0.8 (0.2-1) mg/dl AST 9 L (15-37) U/L ALT 12 (12-78) U/L Alkaline Phosphatase 139 H (45-117) U/L NT-Pro-B Natriuret Pep 40351 H (0-1800) pg/ml Total Protein 7.8 (6.4-8.2) gm/dl Albumin 2.7 L (3.4-5.0) gm/dl Globulin 5.1 H (2.5-4.0) gm/dl Albumin/Globulin Ratio 0.5 L (0.9-2) Urine Color Urine Appearance (Clear) Urine pH (4.5-7.5) Ur Specific [place] (1.000-1.030) Urine Protein (Negative) Urine Glucose (UA) (Negative) Urine Ketones (Negative) Urine Blood (Negative) Urine Nitrite (Negative) Urine Bilirubin (Negative) Urine Urobilinogen (Negative) Ur Leukocyte Esterase (Negative) Urine WBC (Auto) (0-5) /hpf Urine RBC (Auto) (0-4) /hpf U Hyaline Cast (Auto) (0-5) /lpf U Epithel Cells (Auto) (0-5) /lpf Urine Bacteria (Auto) (Negative) 12/29/18 12/29/18 Range/Units 12:19 13:15 WBC (4.8-10.8) K/uL RBC (4.7-6.1) M/uL Hgb (14.0-18.0) g/dL Hct (42-52) % MCV (80-100) fL MCH (25-34) pg MCHC (32-36) g/dL RDW Std Deviation (36.4-46.3) fL RDW Coeff of Jarod (11.5-14.5) % Plt Count (130-400) K/uL MPV (7.4-10.4) fL Immature Gran % (Auto) % Neut % (Auto) % Lymph % (Auto) % [place] % (Auto) % Eos % (Auto) % Baso % (Auto) % Immature Gran # (Auto) (0.00-0.02) K/uL Neut # (Auto) (1.4-6.5) K/uL Lymph # (Auto) (1.2-3.4) K/uL [place] # (Auto) (0.11-0.59) K/uL Eos # (Auto) (0-0.5) K/uL Baso # (Auto) (0-0.2) K/uL Sodium (136-145) mmol/L Potassium (3.5-5.1) mmol/L Chloride (98-107) mmol/L Carbon Dioxide (21-32) mmol/L Anion Gap (3-11) BUN (7-18) mg/dl Creatinine (0.6-1.4) mg/dl Est Cr Clr Drug Dosing ml/min Est GFR ( Amer) Est GFR (Non-Af Amer) BUN/Creatinine Ratio (10-20) Glucose (70-99) mg/dl POC Lactic Acid Mitch 0.86 L (0.90-1.70) mmol/L Calcium (8.5-10.1) mg/dl Total Bilirubin (0.2-1) mg/dl AST (15-37) U/L ALT (12-78) U/L Alkaline Phosphatase (45-117) U/L NT-Pro-B Natriuret Pep (0-1800) pg/ml Total Protein (6.4-8.2) gm/dl Albumin (3.4-5.0) gm/dl Globulin (2.5-4.0) gm/dl Albumin/Globulin Ratio (0.9-2) Urine Color Yellow Urine Appearance Clear (Clear) Urine pH 5.0 (4.5-7.5) Ur Specific [place] 1.013 (1.000-1.030) Urine Protein 1+ H (Negative) Urine Glucose (UA) Negative (Negative) Urine Ketones Negative (Negative) Urine Blood Negative (Negative) Urine Nitrite Negative (Negative) Urine Bilirubin Negative (Negative) Urine Urobilinogen Negative (Negative) Ur Leukocyte Esterase Negative (Negative) Urine WBC (Auto) 1-5 (0-5) /hpf Urine RBC (Auto) 5-10 H (0-4) /hpf U Hyaline Cast (Auto) 1-5 (0-5) /lpf U Epithel Cells (Auto) 5-10 H (0-5) /lpf Urine Bacteria (Auto) Negative (Negative) Imaging Data Radiologist's Impression: Radiology results as stated below per my review and the radiologist's interpretation: XR knee RT 3V CLINICAL HISTORY: right knee pain COMPARISON: None. DISCUSSION: There are advanced osteoarthritic changes. There is marked narrowing of the medial joint compartment. There is mild lateral translation of the tibia with respect to the femur. There are no acute fractures. There is no radiographic evidence of significant joint effusion. There is a sclerotic lesion within the distal femoral metaphysis likely representing either a bone infarct, or chondral lesion.. IMPRESSION: 1. Advanced osteoarthritic change 2. No acute fractures 3. 4 cm bone infarct versus chondral lesion within the distal femoral metaphysis Electronically signed by: Roberto Herrera M.D. 12/29/2018 12:34 PM XR chest 1V portable CLINICAL HISTORY: hypoxia, leg swelling COMPARISON STUDY: 05/05/2016 FINDINGS: The heart is enlarged. There is asymmetric right greater than left pulmonary edema. There are small bilateral pleural effusions. There is no lobar consolidation[ IMPRESSION: Cardiomegaly and radiographic evidence of pulmonary edema. Small bilateral pleural effusions Electronically signed by: Roberto Herrera M.D. 12/29/2018 1:43 PM Blood Pressure Blood Pressure Findings: Elevated blood pressure Blood Pressure Disposition: Referred to patients primary care provider MDM Narrative Discharge Plan Visit Data Chief Complaint: Swelling/Edema to Extremity Stated Complaint: Lower extremities/swelling ED Provider: Luis Dove Discharge Problem: Bilateral cellulitis of lower leg, CHF (congestive heart failure), Ambulatory dysfunction Patient Disposition: Being Evaluated by Hospitalist Forms Stand Alone Forms: My [facility] [employer] Prescriptions Prescriptions: No Action triamcinolone acetonide 0.1 % ointment 1 appln TOP BID Qty: 80 RF: 2 acetaminophen 500 mg tablet 500 mg PO Q6H PRN (Reason: Pain) RF: 0 amlodipine 5 mg tablet 5 mg PO QAM Qty: 30 RF: 0 ergocalciferol (vitamin D2) 50,000 unit capsule 50,000 units PO MONTHLY RF: 0 isosorbide mononitrate 120 mg tablet extended release 24 hr 120 mg PO QAM Qty: 90 RF: 0 simvastatin 20 mg tablet 20 mg PO QAM Qty: 30 RF: 0 torsemide 20 mg tablet 40 mg PO BID Qty: 120 RF: 0 Eliquis 2.5 mg tablet 2.5 mg PO BID Qty: 60 RF: 2 Oxygen Home Liters Per Minute .ROUTE .MEDSUPPLY Qty: 1 RF: 0 aspirin 81 mg tablet,delayed release (DR/EC) 81 mg PO QAM RF: 0 albuterol sulfate 2.5 mg /3 mL (0.083 %) solution for nebulization 2.5 mg inhalation Q4H PRN (Reason: Shortness Of Breath Or Wheezing) RF: 0 iron 18 mg Tablet 18 mg PO QAM RF: 0 potassium chloride 10 mEq tablet extended release 10 meq PO QAM RF: 0 albuterol sulfate [Ventolin HFA] 90 mcg/actuation HFA aerosol inhaler 2 puffs INH Q4H PRN (Reason: Shortness Of Breath Or Wheezing) RF: 0 Breo Ellipta 100-25 mcg/dose blister with device 1 puffs INH QAM RF: 0 Referrals Referrals: Umang Rizzo III, MD [Primary Care Provider] - Discharge Problem: CHF (congestive heart failure) Qualifiers: Heart failure type: unspecified Heart failure chronicity: unspecified Qualified Code(s): I50.9 - Heart failure, unspecified The scribe's documentation has been prepared under my direction and personally reviewed by me in its entirety. I confirm that the note above accurately reflects all work, treatment, procedures, and medical decision making performed by me.
[2018-12-29] MEDS ORDERED: GLUCOSE 40% GEL 15 GM TUBE PO PRN (16:34)
[2018-12-29] MEDS ORDERED: ALBUTEROL HFA 8 GM INHALER INH PRN (16:34)
[2018-12-29] MEDS ORDERED: GLUCOSE 10 TABS/TUBE PO PRN (16:34)
[2018-12-29] MEDS ORDERED: ALBUTEROL 0.083% NEBU SOLN 3 ML VIAL INH PRN (16:34)
[2018-12-29] MEDS ORDERED: CARBOHYDRATES FOR HYPOGLYCEMIA PO PRN (16:34)
[2018-12-29] MEDS ORDERED: GLUCAGON FOR INJ 1 MG VIAL SQ PRN (16:34)
[2018-12-29] MEDS ORDERED: ONDANSETRON INJ 2 MG/ML 2 ML VIAL IV PRN (16:34)
[2018-12-29] MEDS ORDERED: ACETAMINOPHEN 325 MG TAB PO PRN (16:34)
[2018-12-29] MEDS ORDERED: MAGNESIUM HYDROXIDE SUSP 30 ML UDC PO PRN (16:34)
[2018-12-29] MEDS ORDERED: OXYGEN SCH (16:34)
[2018-12-29] MEDS ORDERED: ACETAMINOPHEN 500 MG TAB PO PRN (16:34)
[2018-12-29] MEDS ORDERED: DEXTROSE 50% 50 ML SYRINGE IV PRN (16:34)
[2018-12-29] MEDS: INSULIN ASPART 100 UNITS/ML 3 ML PEN SC SCH ×2 (17:45→21:48)
[2018-12-29] MEDS: BUMETANIDE 1 MG in SYRINGE 0 ML IV SCH (18:17)
[2018-12-29] MEDS: ALBUT/IPRATROP 3MG/0.5MG NEB 3 ML VIAL NEB SCH ×4 (18:56→23:14)
[2018-12-29] MEDS: TRIAMCINOLONE ACET 0.1% OINT 15 GM TUBE TOP SCH (21:41)
[2018-12-29] MEDS: TORSEMIDE 20 MG TAB PO SCH (21:41)
[2018-12-29] MEDS: APIXABAN 2.5 MG TAB PO SCH (21:41)
[2018-12-30] MEDS ORDERED: MICONAZOLE NITRATE POWDER 43 GM EXT PRN (01:12)
[2018-12-30] MEDS: ALBUT/IPRATROP 3MG/0.5MG NEB 3 ML VIAL NEB SCH ×6 (03:17→23:14)
[2018-12-30 05:47] LABS: Basophils # (auto) 0.03 K/uL (0-0.2); Basophils % (auto) 0.3 %; Eosinophils # (auto) 0.04 K/uL (0-0.5); Eosinophils % (auto) 0.4 %; Hematocrit (blood only) 31.5 % (42-52); Hemoglobin 9.8 g/dL (14.0-18.0); Immature Granulocytes # (auto) 0.01 K/uL (0.00-0.02); Immature Granulocytes % (auto) 0.1 %; Lymphocytes # (auto) 0.83 K/uL (1.2-3.4); Lymphocytes % (auto) 9.2 %; Mean Corpuscular Hemoglobin 27.4 pg (25-34); Mean Corpuscular Hgb Conc 31.1 g/dL (32-36); Mean Platelet Volume 8.4 fL (7.4-10.4); Monocytes # (auto) 0.69 K/uL (0.11-0.59); Monocytes % (auto) 7.7 %; Neutrophils % (auto) 82.3 %; Platelet Count 182 K/uL (130-400); RDW Coefficient of Variation 17.2 % (11.5-14.5); Red Blood Count 3.58 M/uL (4.7-6.1)
[2018-12-30 06:15] LABS: BUN Creatinine Ratio 19.7 (10-20); Calcium 8.8 mg/dl (8.5-10.1); Est GFR (African American) 20.7; Est GFR (Non-African American) 17.8; Magnesium 2.2 mg/dl (1.8-2.4); Potassium 3.7 mmol/L (3.5-5.1)
[2018-12-30 06:17] LABS: Phosphorus 4.3 mg/dl (2.5-4.9)
[2018-12-30] MEDS: INSULIN ASPART 100 UNITS/ML 3 ML PEN SC SCH ×4 (08:41→21:06)
[2018-12-30] MEDS: TRIAMCINOLONE ACET 0.1% OINT 15 GM TUBE TOP SCH ×2 (08:41→21:06)
[2018-12-30] MEDS: BUMETANIDE 1 MG in SYRINGE 0 ML IV SCH ×2 (08:42→16:48)
[2018-12-30] MEDS: AMLODIPINE BESYLATE 5 MG TAB PO SCH (08:42)
[2018-12-30] MEDS: TORSEMIDE 20 MG TAB PO SCH (08:42)
[2018-12-30] MEDS: ISOSORBIDE MONO EXTENDED REL 60 MG TABCR PO SCH (08:43)
[2018-12-30] MEDS: SIMVASTATIN 20 MG TAB PO SCH (08:43)
[2018-12-30] MEDS: ASPIRIN 81 MG ECTAB PO SCH (08:43)
[2018-12-30] MEDS: POTASSIUM CHLORIDE 10 MEQ TABCR PO SCH (08:43)
[2018-12-30] MEDS: APIXABAN 2.5 MG TAB PO SCH ×2 (08:44→21:06)
[2018-12-30] MEDS ORDERED: NON-FORMULARY MEDICATION (Iron 18 MG) PO SCH (09:00)
[2018-12-30] MEDS ORDERED: POTASSIUM CHLORIDE 20 MEQ TABCR PO ONE (11:45)
[2018-12-30] MEDS ORDERED: BUMETANIDE 1 MG in SYRINGE 0 ML IV ONE (12:00)
[2018-12-30] MEDS: cefTRIAXone SODIUM 2,000 MG in DEXTROSE 5% 50 ML IV SCH (12:55)
[2018-12-30] MEDS: OXYCODONE/ACETAMINOPHEN 5mg/325mg TAB PO PRN (16:47)
[2018-12-30] MEDS: CLINDAMYCIN 600 MG in DEXTROSE 5% 50 ML IV SCH (16:47)
--- NOTE | 2018-12-30 17:02 | Hospitalist Progress Note ---
Date of Service December 30, 2018 Assessment & Plan (1) CHF (congestive heart failure): Admits to [facility] on telemetry Vital signs every 4 hours Trend BNP( [id number]), BNP elevation is to factorial also due to worsening CKD stage IV and volume overload. Strict in and out Daily weight Continue Bumex IV twice daily and titrate up as needed Low-sodium diet Free fluid restriction to 1200 free water p.o. daily TTE 1 the left ventricle is grossly normal side, with moderate concentric left ventricular hypertrophy, elevated ejection fraction estimated to be 70%. The left ventricular wall motion is normal. The right ventricle is normal size. Right ventricle systolic function is mildly reduced. The left ventricle is severely dilated. The right atrium is severely dilated. There is nearly severe aortic stenosis. There is a mean gradient gradient of 38 mmHg. Aortic valve area is 1 cm the dimensionless index is 0.35. There is mild aortic insufficiency. There is severe mitral annular calcification leading to severe mitral stenosis with a mean gradient of 9 mm. There is severe pulmonary hypertension with pulmonary artery pressure of 70 mmHg based on the right atrial pressure of 15 mmHg. B/L LE at baseline, however is worse today We will consult cardiology for severe aortic stenosis. Continue apixaban Eliquis 2.5 mg p.o. twice daily due to chronic kidney insufficiency his dose is reduced for atrial fibrillation. Full code (2) Bilateral cellulitis of lower leg: Has chronic venostasis with bilateral lower extremities lymphedema. Continue Rocephin started in the emergency room and added clindamycin 600 mg IV every 8 hours with probiotics. Wound provider consulted. Follow-up wound cultures Daily dressing change. (3) COPD (chronic obstructive pulmonary disease): Acute COPD is exacerbated by pulmonary edema and congestive heart failure. Patient has bilateral wheezing and crackles. Continued urinalysis. Duo nebs every 4 hours scheduled. Do not give steroids at this time. Titrate oxygen as needed to be above 92%. Patient uses at home 2 L 12/09 (4) Ambulatory dysfunction: PT/OT pending (5) Type 2 diabetes mellitus with chronic kidney disease: No current PO or injectable meds SSI PRN A1c pending (6) Anemia: Baseline Hb 9.5-10.5 10.0 on admission Monitor Study pending Likely related to renal disease (7) Chronic kidney disease, stage IV (severe): Baseline cr 2.9-3.3 Admission cr 3.1 Pt makes adequate urine per family We will consult Dr. Baez since patient is hospitalized and supposed to have a routine follow-up with him on 12/31 Avoid nephrotoxic agents Closely monitor creatinine and GFR (8) Hypertension: Continue home meds: Continue Bumex 1 mg IV twice daily and titrate up as needed, aspirin 81 mg delayed release, continue isosorbide mononitrate 120 mg tablet extended release, continue potassium chloride 10 mEq p.o. every morning (9) Lymphedema: Appears that PCP was attempting to obtain authorization for home compression pumping. Patient would benefit from referral to [place] [facility] for lymphedema at the discharge and home compression pumping. (10) Leg pain, right: Knee XR as noted, uncertain findings and will likely need f/u imaging with possible outpt ortho c/s Will need set up for this on d/c (11) Obstructive sleep apnea: Uses NC HS, continue (12) Venous stasis dermatitis: Chronic, monitor, as above (13) Atrial fibrillation: continue home meds, eliquis (14) Hyperlipidemia: Continue home meds (15) Myocardial infarction: Hx of MS x2, 21 yrs ago and 6 yrs ago Denies stents Aspirin 81mg, simvastatin 20 mg p.o. every morning (16) Tobacco use disorder: Smokeless tobacco, declines nicotine patch (17) DVT prophylaxis: Continues already on Eliquis Subjective Patient seen and examined at the bedside. Patient was admitted yesterday for lower extremity pain redness and swelling due to chronic lymphedema and chronic venous stasis. Patient reports that he is not able to ambulate for 3 to 4 days prior to arriving to the hospital. He reports also being short of breath for the past week. Patient he is on 2 L of oxygen at home 12/09 but this point of time he needs more oxygen to be above 92% 3 to 4 L. Patient is not sure if he may gain more weight but apparently he feels like he did. Patient otherwise denies fever, chills, chest pain, abdominal pain, frequency, urgency, nausea, vomiting, diarrhea, hematuria, melena, dysuria. P.o. intake is good. Review of Systems Review of Systems: All systems reviewed & are unremarkable except as noted in HPI & below Physical Exam Constitutional: WD/WN, vitals as above well developed and + morbidly obese Eyes: PERRL, conjunctivae normal, anicteric sclerae ENMT: external ear and nose normal, oropharynx normal Neck: trachea midline, no thyromegaly Respiratory: Auscultation: + wheezes (Bilateral) Cardiovascular: Heart Sounds: normal S1, normal S2 and + murmur Palpation: + palpable S3 Vessels: + JVD and dorsalis pedis pulses present Extremities: + pedal edema and + edema (Very edematous lower extremities with chronic lymphedema and chronic venostasis) Gastrointestinal (Abdomen): normal bowel sounds, soft, nontender, no hepatosplenomegaly Musculoskeletal: no cyanosis or clubbing, extremities motor strength 5/5 Skin: no rashes, warm and dry Small shallow ulcer located bilaterally in the lower extremities purulent and foul-smelling. Neurologic: patellar DTR's 2+ bilat, sensation intact Psychiatric: A+Ox3, euthymic affect Lymphatic: Bilateral lower extremities lymphedema Results & Data Vital Signs (Past 12 Hours) Vital Signs Temp Pulse Pulse Resp BP BP Pulse Ox 12/30/18 15:13 87 20 93 12/30/18 15:00 36.8 C 89 20 166/71 H 90 12/30/18 11:45 36.8 C 100 H 20 167/78 H 91 12/30/18 11:00 75 12/30/18 10:54 91 H 20 90 12/30/18 07:56 36.7 C 100 H 22 172/90 H 90 12/30/18 06:47 91 H 16 93 PG Care Time/CCT Total # of Minutes Spent Total Time Spent with Patient: Total time spent is greater than 50% in coordination of care (as documented) at patient's floor/unit and/or counseling patient: (1) CHF (congestive heart failure) Heart failure chronicity: unspecified Heart failure type: unspecified Qualified Code(s): I50.9 - Heart failure, unspecified (2) Hypertension Hypertension type: essential hypertension Qualified Code(s): I10 - Essential (primary) hypertension (3) Hyperlipidemia Hyperlipidemia type: other hyperlipidemia Qualified Code(s): E78.49 - Other hyperlipidemia; E78.4 - Other hyperlipidemia
[2018-12-30] MEDS: LACTOBACILLUS ACIDOPHILUS (FLORANEX) TAB PO SCH ×2 (17:49→21:06)
--- NOTE | 2018-12-30 22:35 | Ultrasound Report ---
US venous doppler LE BI CLINICAL HISTORY: 78 years-old Male presenting with bilateral LE lymphedema. TECHNIQUE: Real-time grayscale and color and spectral Doppler ultrasound imaging of the veins of the bilateral lower extremities was performed. Compression and augmentation were also utilized. COMPARISON: None. FINDINGS: RIGHT: Common femoral vein: Patent. Greater saphenous vein (superficial): Patent. Deep femoral vein: Patent. Femoral vein: Patent. Popliteal vein: Patent. Calf veins: Patent. LEFT: Common femoral vein: Patent. Greater saphenous vein (superficial): Patent. Deep femoral vein: Patent. Femoral vein: Patent. Popliteal vein: Patent. Calf veins: Patent. Other: Bilateral complex avascular hypoechoic to anechoic collections in the popliteal fossae the lar bree on the right measuring 5.7 x 4.1 x 2.0 cm. The collection on the left measures 3.6 x 1.6 x 0.9 cm . Subcutaneous edema noted in the lower legs. IMPRESSION: 1. No evidence of deep venous thrombosis. 2. Suspected bilateral popliteal cysts. 3. Bilateral lower leg subcutaneous edema. Electronically signed by: Luc Esposito M.D. 12/30/2018 10:33 PM
[2018-12-31] MEDS: CLINDAMYCIN 600 MG in DEXTROSE 5% 50 ML IV SCH ×3 (00:08→16:25)
[2018-12-31] MEDS: ALBUT/IPRATROP 3MG/0.5MG NEB 3 ML VIAL NEB SCH ×6 (02:15→23:11)
[2018-12-31] MEDS ORDERED: BUMETANIDE 1 MG in SYRINGE 0 ML IV ONE (03:00)
[2018-12-31 06:04] LABS: Basophils # (auto) 0.02 K/uL (0-0.2); Basophils % (auto) 0.1 %; Hematocrit (blood only) 30.8 % (42-52); Hemoglobin 9.5 g/dL (14.0-18.0); Immature Granulocytes # (auto) 0.02 K/uL (0.00-0.02); Immature Granulocytes % (auto) 0.1 %; Lymphocytes # (auto) 0.65 K/uL (1.2-3.4); Lymphocytes % (auto) 4.6 %; Mean Corpuscular Hemoglobin 27.3 pg (25-34); Mean Corpuscular Hgb Conc 30.8 g/dL (32-36); Mean Corpuscular Volume 88.5 fL (80-100); Mean Platelet Volume 8.3 fL (7.4-10.4); Monocytes # (auto) 0.99 K/uL (0.11-0.59); Neutrophils # (auto) 12.37 K/uL (1.4-6.5); Neutrophils % (auto) 88.2 %; Platelet Count 178 K/uL (130-400); RDW Coefficient of Variation 17.1 % (11.5-14.5); RDW Standard Deviation 55.7 fL (36.4-46.3); Red Blood Count 3.48 M/uL (4.7-6.1); Reticulocyte % 1.3 % (0.5-2.0); Reticulocytes # 0.04 10^6/uL (0.02-0.10); White Blood Count 14.05 K/uL (4.8-10.8)
[2018-12-31 06:45] LABS: Albumin Level 2.4 gm/dl (3.4-5.0); BUN Creatinine Ratio 19.6 (10-20); Calcium 9.1 mg/dl (8.5-10.1); Creatinine Clr Calc Pharmacy 21.7 ml/min; Est GFR (Non-African American) 15.5; Potassium 4.4 mmol/L (3.5-5.1)
[2018-12-31 06:54] LABS: Albumin Globulin Ratio 0.5 (0.9-2); Bilirubin,Total 0.6 mg/dl (0.2-1); Globulin 5.1 gm/dl (2.5-4.0); Total Protein 7.5 gm/dl (6.4-8.2)
[2018-12-31 07:40] LABS: Estimated Average Glucose 105 mg/dl; Hemoglobin A1C 5.3 % (4.5-5.6)
[2018-12-31] MEDS: LACTOBACILLUS ACIDOPHILUS (FLORANEX) TAB PO SCH ×4 (08:06→21:22)
[2018-12-31] MEDS: INSULIN ASPART 100 UNITS/ML 3 ML PEN SC SCH ×4 (08:44→22:06)
--- NOTE | 2018-12-31 09:56 | Cardiology Consultation ---
Date of Consultation December 31, 2018 Assessment & Plan (1) Acute diastolic heart failure: 2. Moderate to severe aortic stenosis 3. Moderate mitral stenosis 4. Severe pulmonary hypertension 5. Stage IV CKD 6. Chronic lower extremity lymphedema 7. Persistent atrial fibrillation 8. Anemia 9. History of reported coronary artery disease post Patient here with acute on chronic diastolic heart failure in the setting of progressive mixed valvular disease. No other clear reversible precipitants. Presently patient appears well-perfused but with significant pulmonary and systemic venous congestion. Remains in reasonably rate controlled atrial fibrillation although with patient's mitral stenosis may benefit with lower target heart rate. Aortic stenosis on repeat echocardiogram again looks to be in the moderate to severe category. Difficult options for valvular repair/replacement long-term. For now initially recommend increased diuretics and more stringent heart rate control. Recommendations: Agree with increased Bumex or switching to torsemide (try bumex 2mg IV BID today). Previously has responded to metolazone and if inadequate urine output would give dose of 2.5 mg tomorrow Stop amlodipine and start diltiazem 60mg TID Continue Eliquis Will continue to follow History of Present Illness Attending Physician: Kiarra White MD History of Present Illness Mr. Schreiber is a 79-year-old man with a history of reported coronary artery disease status post prior [place], hypertension, hyperlipidemia, diabetes, chronic venous insufficiency/lymphedema, morbid obesity, obstructive sleep apnea on CPAP, stage IV chronic renal insufficiency, persistent atrial fibrillation, at least moderate aortic stenosis, and chronic diastolic heart failure admitted with worsening lower extremity edema breath. Patient well-known to me from outpatient setting, prior hospitalizations. Last heart failure hospitalization in April 2016. Has been maintained on diuretic regimen of torsemide 40 mg twice daily and metolazone 2.5 mg twice weekly. Was admitted on 12/29 in the setting of increased redness, swelling of his legs bilaterally over the preceding 3 to 4 days. With that noted decreased ability to ambulate across his home and worsened orthopnea. Upon arrival BNP up near 20,000. Chest x-ray showed mild congestion, small pleural effusions. Was started on Bumex 1 mg IV twice daily. Net even since admission. Yesterday evening increasingly hypoxic now on 8 L O2. Repeat echo yesterdayEF 70%, mildly reduced RV function, moderate to severe aortic stenosis (PV 3.79, MG 39, ARCHIE 1.0, DI 0.35), mild AI, mild MR, mitral stenosis with mean gradient of 9, severe pulmonary hypertension estimated PASP 70, CVP 15 Allergies Allergy/AdvReac Type Severity Reaction Status Date / Time No Known Allergies Allergy Unverified 12/29/18 12:53 Home Medications Home Medications Medication Instructions Recorded Confirmed Type acetaminophen 500 mg tablet 500 mg PO Q6H PRN tab 07/05/18 12/29/18 History Oxygen Home #1 ea 08/06/18 12/29/18 Rx amlodipine 5 mg tablet 5 mg PO QAM #30 tab 08/06/18 12/29/18 History apixaban 2.5 mg tablet 2.5 mg PO BID #60 tab 08/06/18 12/29/18 Rx ergocalciferol (vitamin D2) 50,000 50,000 units PO MONTHLY cap 08/06/18 12/29/18 History unit capsule isosorbide mononitrate ER 120 mg 120 mg PO QAM #90 tab 08/06/18 12/29/18 History tablet,extended release 24 hr simvastatin 20 mg tablet 20 mg PO QAM #30 tab 08/06/18 12/29/18 History torsemide 20 mg tablet 40 mg PO BID #120 tab 08/06/18 12/29/18 History aspirin 81 mg tablet,delayed 81 mg PO QAM tab 10/03/18 12/29/18 History release triamcinolone acetonide 0.1 % 1 appln TOP BID #80 gm 11/21/18 12/29/18 Rx topical ointment albuterol sulfate 2.5 mg INHALATION Q4H PRN 12/29/18 12/29/18 History albuterol sulfate [Ventolin HFA] 2 puffs INH Q4H PRN 12/29/18 12/29/18 History fluticasone furoate-vilanterol 1 puffs INH QAM 12/29/18 12/29/18 History [Breo Ellipta] iron 18 mg PO QAM 12/29/18 12/29/18 History potassium chloride 10 meq PO QAM 12/29/18 12/29/18 History Patient History Medical History Anemia (Chronic) Anxiety (Acute) Aortic stenosis (Acute) Arthritis (Acute) Asthma (Acute) Cervicalgia (Acute) Chronic kidney disease, stage IV (severe) (Chronic) Depression (Acute) Diabetes mellitus (Acute) Hypertension (Chronic) Lymphedema (Chronic) Obstructive sleep apnea (Acute) Venous stasis dermatitis (Acute) Vitamin D deficiency (Chronic) CHF (congestive heart failure) (Chronic) COPD (chronic obstructive pulmonary disease) (Chronic) Atrial fibrillation Hyperlipidemia (Chronic) Myocardial infarction CHF exacerbation Pneumonia Family History Mother Myocardial infarction Brother Myocardial infarction Father Unknown family medical history Other Family history non-contributory Social History Preferred Language: Spanish Communication Ability: Effective Beliefs That Will Affect Care: None marital status: Current Living Situation: Spouse current occupational status: retired Feels Safe at Home: Yes Smoking Status: Former smoker Tobacco Type: smokeless tobacco ; Hx Alcohol Use: No Hx Substance Use: No Review of Systems Review of Systems: All systems reviewed & are unremarkable except as noted in HPI & below Physical Exam Constitutional: + morbidly obese and + disheveled Eyes: + anicteric sclerae Respiratory: + labored breathing Auscultation: + diminished lung sounds (At bases bilaterally) and + crackles (Bilaterally to midlung) Cardiovascular: Rate/Rhythm: + irregularly irregular Heart Sounds: + murmur (3/6 systolic ejection murmur heard best at right upper sternal border, holosystolic murmur heard best at left lower sternal border) Vessels: + JVD (Unable to assess) Extremities: + edema (Legs erythematous, 3+ edema with chronic stasis changes to the knee, small areas of skin breakdown) Gastrointestinal (Abdomen): Inspection/Auscultation: normal bowel sounds Percussion/Palpation: abdomen soft; abdomen nontender Skin: + erythema (Legs bilaterally) Neurologic: no focal motor deficits Psychiatric: A+Ox3, euthymic affect Results & Data Vital Signs (Past 12 Hours) Vital Signs Temp Pulse Pulse Pulse Resp BP BP 12/31/18 07:39 95 H 22 109/63 12/31/18 07:19 96 H 12/31/18 06:54 88 16 12/31/18 03:02 98.6 F 102 H 22 136/63 12/31/18 02:17 90 24 12/30/18 23:15 94 H 22 12/30/18 23:04 98.2 F 96 H 24 135/76 Pulse Ox 12/31/18 07:39 94 12/31/18 07:19 12/31/18 06:54 93 12/31/18 03:02 92 12/31/18 02:17 91 12/30/18 23:15 83 L 12/30/18 23:04 90 Diagnostic Findings Prior cardiovascular studies: Echo (09/06/2017): Normal LV size and systolic function. EF 60-65%. Mild concentric LVH. Moderate to severe aortic stenosis. Trace AI. Severe mitral annular calcification with mild mitral stenosis and trace MR. Severe left atrial enlargement. Moderate pulmonary hypertension; PASP 50-55 mmHg, RA 15 mmHg. Echo (02/19/2016): Hyperdynamic LV, LVEF greater than 70%, moderate concentric LVH, moderate left atrial dilation, mild calcific aortic stenosis, trace AI, trace MR, normal estimated PA and RA pressures. PG Care Time/CCT Total # of Minutes Spent Total Time Spent with Patient: Total time spent is greater than 50% in coordination of care (as documented) at patient's floor/unit and/or counseling patient:
[2018-12-31] MEDS: BUMETANIDE 1 MG in SYRINGE 0 ML IV SCH (10:22)
[2018-12-31] MEDS: ASPIRIN 81 MG ECTAB PO SCH (10:23)
[2018-12-31] MEDS: ISOSORBIDE MONO EXTENDED REL 60 MG TABCR PO SCH (10:24)
[2018-12-31] MEDS: APIXABAN 2.5 MG TAB PO SCH (10:24)
[2018-12-31] MEDS: TRIAMCINOLONE ACET 0.1% OINT 15 GM TUBE TOP SCH ×2 (10:25→21:28)
[2018-12-31] MEDS: POTASSIUM CHLORIDE 10 MEQ TABCR PO SCH (10:25)
[2018-12-31] MEDS: AMLODIPINE BESYLATE 5 MG TAB PO SCH (10:27)
[2018-12-31] MEDS: SIMVASTATIN 20 MG TAB PO SCH (10:30)
[2018-12-31] MEDS: cefTRIAXone SODIUM 2,000 MG in DEXTROSE 5% 50 ML IV SCH (11:56)
--- NOTE | 2018-12-31 12:41 | Nephrology Consultation ---
Date of Consultation December 31, 2018 Assessment & Plan (1) Acute diastolic heart failure: (2) JOSE (obstructive sleep apnea): (3) Type 2 diabetes mellitus with chronic kidney disease: (4) Anemia: (5) Aortic stenosis: (6) Chronic kidney disease, stage IV (severe): Thankfully kidney function is relatively stable. Unfortunately, patient's urine output is reduced. He has not responded appropriately to IV Bumex. I would suggest that we consider either starting continuous infusion was switching to torsemide. Patient is significantly volume overloaded. He has refused hemodialysis. Overall prognosis is guarded. Cardiology consultation is pending. He has anemia associated with his chronic kidney disease he has acute on chronic diastolic congestive heart failure in the setting setting of advanced kidney dysfunction cells moderate aortic stenosis with underlying atrial fibrill ation. His heart rate is well controlled. His medications are appropriate for his kidney function. This anemia is slightly suboptimal could be controlled at this time. Will provide a dose of erythropoietin. Patient's iron level was slightly low but I do not have a T sat her ferritin level recently for review. Laboratory studies will be repeated tomorrow morning. (7) Hypertension: (8) Lymphedema: (9) Venous stasis dermatitis: History of Present Illness Reason for Consultation: Acute on chronic kidney disease Attending Physician: Selin Sol DO History of Present Illness Rafat is a 78-year-old male who is seen and evaluated in his hospital room this morning regarding acute on chronic renal insufficiency. Nephrology consultation was requested for acute on chronic kidney disease. Patient follows in the outpatient clinic with Dr. Baez. He has baseline stage IV CKD with a Cr 3.3 w/ EGFR 16 cc/min. Urine sediment has been benign. Urinary protein excretion is low grade. Renal impairment has been attributed to R sided heart failure. He is managed in the [facility] clinic and has a "dry weight" of 270 lbs. Mr. Schreiber is familiar with hemodialysis. His mother was on IHD until she and his cousin Oswaldo is currently on HD in [place], [place]. Mr. Schreiber is clear that IHD will not provide him with the quality of life which he desires. He does not wish to pursue IHD if his kidneys fail. Past medical history includes diabetes mellitus type 2, morbid obesity, obstructive sleep apnea manage with CPAP, atrial fibrillation, atherosclerotic coronary artery disease, chronic diastolic CHF, chronic lower extremity lymphedema. The patient was admitted with acute on chronic congestive heart failure in the setting of worsening kidney function. He has not had significant diuresis with IV Bumex. An additional 1 milligram IV was provided this morning. He remains hypoxic on 8 liters of oxygen saturating at 93 percent. His work of breathing is increased. However, he states he does feel better since admission. Allergies Allergy/AdvReac Type Severity Reaction Status Date / Time No Known Allergies Allergy Unverified 12/29/18 12:53 Home Medications Home Medications Medication Instructions Recorded Confirmed Type acetaminophen 500 mg tablet 500 mg PO Q6H PRN tab 07/05/18 12/29/18 History Oxygen Home #1 ea 08/06/18 12/29/18 Rx amlodipine 5 mg tablet 5 mg PO QAM #30 tab 08/06/18 12/29/18 History apixaban 2.5 mg tablet 2.5 mg PO BID #60 tab 08/06/18 12/29/18 Rx ergocalciferol (vitamin D2) 50,000 50,000 units PO MONTHLY cap 08/06/18 12/29/18 History unit capsule isosorbide mononitrate ER 120 mg 120 mg PO QAM #90 tab 08/06/18 12/29/18 History tablet,extended release 24 hr simvastatin 20 mg tablet 20 mg PO QAM #30 tab 08/06/18 12/29/18 History torsemide 20 mg tablet 40 mg PO BID #120 tab 08/06/18 12/29/18 History aspirin 81 mg tablet,delayed 81 mg PO QAM tab 10/03/18 12/29/18 History release triamcinolone acetonide 0.1 % 1 appln TOP BID #80 gm 11/21/18 12/29/18 Rx topical ointment albuterol sulfate 2.5 mg INHALATION Q4H PRN 12/29/18 12/29/18 History albuterol sulfate [Ventolin HFA] 2 puffs INH Q4H PRN 12/29/18 12/29/18 History fluticasone furoate-vilanterol 1 puffs INH QAM 12/29/18 12/29/18 History [Breo Ellipta] iron 18 mg PO QAM 12/29/18 12/29/18 History potassium chloride 10 meq PO QAM 12/29/18 12/29/18 History Patient History Medical History Anemia (Chronic) Anxiety (Acute) Aortic stenosis (Acute) Arthritis (Acute) Asthma (Acute) Cervicalgia (Acute) Chronic kidney disease, stage IV (severe) (Chronic) Depression (Acute) Diabetes mellitus (Acute) Hypertension (Chronic) Lymphedema (Chronic) Obstructive sleep apnea (Acute) Venous stasis dermatitis (Acute) Vitamin D deficiency (Chronic) CHF (congestive heart failure) (Chronic) COPD (chronic obstructive pulmonary disease) (Chronic) Atrial fibrillation Hyperlipidemia (Chronic) Myocardial infarction CHF exacerbation Pneumonia Family History Mother Myocardial infarction Brother Myocardial infarction Father Unknown family medical history Other Family history non-contributory Social History Preferred Language: Wolof Communication Ability: Effective Beliefs That Will Affect Care: None marital status: Current Living Situation: Spouse current occupational status: retired Feels Safe at Home: Yes Smoking Status: Former smoker Tobacco Type: smokeless tobacco ; Hx Alcohol Use: No Hx Substance Use: No Review of Systems Review of Systems: All systems reviewed & are unremarkable except as noted in HPI & below Physical Exam Constitutional: + ill appearing and + frail appearing Eyes: no scleral abnormality and no corneal abnormality ENMT: Mouth: no oral mucosal abnormality and oral mucous membranes not dry Neck: normal visual inspection; + trachea not midline Respiratory: + labored breathing Auscultation: + rales Cardiovascular: Rate/Rhythm: regular rate Heart Sounds: normal S1 and normal S2 Extremities: + edema Gastrointestinal (Abdomen): Inspection/Auscultation: + abdomen distended Percussion/Palpation: abdomen nontender Musculoskeletal: Extremities: no cyanosis and no clubbing Skin: normal turgor; no lesions Neurologic: Motor/Sensory: no tremor and no asterixis Psychiatric: Orientation: alert and oriented x 3 Results & Data Vital Signs (Past 12 Hours) Vital Signs Temp Pulse Pulse Pulse Resp BP BP 12/31/18 11:45 36.2 C L 93 H 16 145/71 H 12/31/18 11:20 88 20 12/31/18 09:55 12/31/18 07:39 95 H 22 109/63 12/31/18 07:19 96 H 12/31/18 06:54 88 16 12/31/18 03:02 37.0 C 102 H 22 136/63 12/31/18 02:17 90 24 Pulse Ox Pulse Ox Pulse Ox Pulse Ox 12/31/18 11:45 95 12/31/18 11:20 96 12/31/18 09:55 90 94 78 L 12/31/18 07:39 94 12/31/18 07:19 12/31/18 06:54 93 12/31/18 03:02 92 12/31/18 02:17 91 Laboratory Results Laboratory Results - last 24 hr 12/30/18 12/30/18 12/30/18 05:22 16:41 20:37 WBC RBC Hgb Hct MCV MCH MCHC RDW Std Deviation RDW Coeff of Jarod Plt Count MPV Immature Gran % (Auto) Neut % (Auto) Lymph % (Auto) [place] % (Auto) Eos % (Auto) Baso % (Auto) Reticulocyte % (Auto) Immature Gran # (Auto) Neut # (Auto) Lymph # (Auto) [place] # (Auto) Eos # (Auto) Baso # (Auto) Reticulocyte # Sodium Potassium Chloride Carbon Dioxide Anion Gap BUN Creatinine Est Cr Clr Drug Dosing Est GFR ( Amer) Est GFR (Non-Af Amer) BUN/Creatinine Ratio Glucose POC Glucose 149 H 145 H Estimat Average Glucose 105 Hemoglobin A1c 5.3 Calcium Iron TIBC Total Bilirubin AST ALT Alkaline Phosphatase Total Protein Albumin Globulin Albumin/Globulin Ratio Triglycerides Cholesterol LDL Cholesterol, Calc VLDL Cholesterol, Calc HDL Cholesterol Cholesterol/HDL Ratio Folate 12/31/18 12/31/18 12/31/18 05:52 05:52 05:52 WBC 14.05 H RBC 3.48 L Hgb 9.5 L Hct 30.8 L MCV 88.5 MCH 27.3 MCHC 30.8 L RDW Std Deviation 55.7 H RDW Coeff of Jarod 17.1 H Plt Count 178 MPV 8.3 Immature Gran % (Auto) 0.1 Neut % (Auto) 88.2 Lymph % (Auto) 4.6 [place] % (Auto) 7.0 Eos % (Auto) 0.0 Baso % (Auto) 0.1 Reticulocyte % (Auto) 1.3 Immature Gran # (Auto) 0.02 Neut # (Auto) 12.37 H Lymph # (Auto) 0.65 L [place] # (Auto) 0.99 H Eos # (Auto) 0.00 Baso # (Auto) 0.02 Reticulocyte # 0.04 Sodium 142 Potassium 4.4 D Chloride 106 Carbon Dioxide 29 Anion Gap 8.0 BUN 70 H Creatinine 3.57 H D Est Cr Clr Drug Dosing 21.7 Est GFR ( Amer) 18.0 Est GFR (Non-Af Amer) 15.5 BUN/Creatinine Ratio 19.6 Glucose 115 H POC Glucose Estimat Average Glucose Hemoglobin A1c Calcium 9.1 Iron 16 L TIBC 224 L Total Bilirubin 0.6 AST 12 L ALT 13 Alkaline Phosphatase 145 H Total Protein 7.5 Albumin 2.4 L Globulin 5.1 H Albumin/Globulin Ratio 0.5 L Triglycerides 43 Cholesterol 88 LDL Cholesterol, Calc 20 VLDL Cholesterol, Calc 9 HDL Cholesterol 59 Cholesterol/HDL Ratio 2 Folate 10.64 12/31/18 12/31/18 07:22 11:16 WBC RBC Hgb Hct MCV MCH MCHC RDW Std Deviation RDW Coeff of Jarod Plt Count MPV Immature Gran % (Auto) Neut % (Auto) Lymph % (Auto) [place] % (Auto) Eos % (Auto) Baso % (Auto) Reticulocyte % (Auto) Immature Gran # (Auto) Neut # (Auto) Lymph # (Auto) [place] # (Auto) Eos # (Auto) Baso # (Auto) Reticulocyte # Sodium Potassium Chloride Carbon Dioxide Anion Gap BUN Creatinine Est Cr Clr Drug Dosing Est GFR ( Amer) Est GFR (Non-Af Amer) BUN/Creatinine Ratio Glucose POC Glucose 108 H 126 H Estimat Average Glucose Hemoglobin A1c Calcium Iron TIBC Total Bilirubin AST ALT Alkaline Phosphatase Total Protein Albumin Globulin Albumin/Globulin Ratio Triglycerides Cholesterol LDL Cholesterol, Calc VLDL Cholesterol, Calc HDL Cholesterol Cholesterol/HDL Ratio Folate PG Care Time/CCT Total # of Minutes Spent Total Time Spent with Patient: Total time spent is greater than 50% in coordination of care (as documented) at patient's floor/unit and/or counseling patient: (1) Hypertension Hypertension type: essential hypertension Qualified Code(s): I10 - Essential (primary) hypertension
--- NOTE | 2018-12-31 13:59 | Wound Consultation ---
Date of Consultation December 31, 2018 Assessment & Plan (1) Venous stasis dermatitis: No debridement was required at this time. Wounds will be dressed with Aquacel Ag. Compression is contraindicated at this time due to patient's decompensated heart failure. Agree with continuing antibiotics. As patient becomes more stable from heart failure standpoint could consider adding compression wraps. In the meantime we will continue with conservative treatment. Thank you for me to participate in the care of this patient. Please not hesitate to call with any questions. (2) Lymphedema: (3) Acute diastolic heart failure: History of Present Illness Reason for Consultation: b/l venous stasis ulcers Attending Physician: Selin Sol DO This is a 78-year-old male admitted with acute diastolic heart failure with a history of obstructive sleep apnea, type 2 diabetes with CKD, anemia, anxiety, aortic stenosis, asthma, CKD stage IV, hypertension, lymphedema, vitamin D deficiency, atrial fibrillation and dyslipidemia. Patient was found to have bilateral venous stasis ulcers. Patient has bilateral venous stasis dermatitis. Per medical record family is stating that swelling is worse than normal with edema into his thighs. Patient is currently on IV antibiotics and diuretics. Patient is complaining of increased pain and weeping from his legs. It appears his PCP was attempting to get him home compression pumps. Patient states he does wear compression stockings at home. Allergies Allergy/AdvReac Type Severity Reaction Status Date / Time No Known Allergies Allergy Unverified 12/29/18 12:53 Home Medications Home Medications Medication Instructions Recorded Confirmed Type acetaminophen 500 mg tablet 500 mg PO Q6H PRN tab 07/05/18 12/29/18 History Oxygen Home #1 ea 08/06/18 12/29/18 Rx amlodipine 5 mg tablet 5 mg PO QAM #30 tab 08/06/18 12/29/18 History apixaban 2.5 mg tablet 2.5 mg PO BID #60 tab 08/06/18 12/29/18 Rx ergocalciferol (vitamin D2) 50,000 50,000 units PO MONTHLY cap 08/06/18 12/29/18 History unit capsule isosorbide mononitrate ER 120 mg 120 mg PO QAM #90 tab 08/06/18 12/29/18 History tablet,extended release 24 hr simvastatin 20 mg tablet 20 mg PO QAM #30 tab 08/06/18 12/29/18 History torsemide 20 mg tablet 40 mg PO BID #120 tab 08/06/18 12/29/18 History aspirin 81 mg tablet,delayed 81 mg PO QAM tab 10/03/18 12/29/18 History release triamcinolone acetonide 0.1 % 1 appln TOP BID #80 gm 11/21/18 12/29/18 Rx topical ointment albuterol sulfate 2.5 mg INHALATION Q4H PRN 12/29/18 12/29/18 History albuterol sulfate [Ventolin HFA] 2 puffs INH Q4H PRN 12/29/18 12/29/18 History fluticasone furoate-vilanterol 1 puffs INH QAM 12/29/18 12/29/18 History [Breo Ellipta] iron 18 mg PO QAM 12/29/18 12/29/18 History potassium chloride 10 meq PO QAM 12/29/18 12/29/18 History Patient History Medical History Anemia (Chronic) Anxiety (Acute) Aortic stenosis (Acute) Arthritis (Acute) Asthma (Acute) Cervicalgia (Acute) Chronic kidney disease, stage IV (severe) (Chronic) Depression (Acute) Diabetes mellitus (Acute) Hypertension (Chronic) Lymphedema (Chronic) Obstructive sleep apnea (Acute) Venous stasis dermatitis (Acute) Vitamin D deficiency (Chronic) CHF (congestive heart failure) (Chronic) COPD (chronic obstructive pulmonary disease) (Chronic) Atrial fibrillation Hyperlipidemia (Chronic) Myocardial infarction CHF exacerbation Pneumonia Family History Mother Myocardial infarction Brother Myocardial infarction Father Unknown family medical history Other Family history non-contributory Social History Preferred Language: Grenadian Communication Ability: Effective Beliefs That Will Affect Care: None marital status: Current Living Situation: Spouse current occupational status: retired Feels Safe at Home: Yes Smoking Status: Former smoker Tobacco Type: smokeless tobacco ; Hx Alcohol Use: No Hx Substance Use: No Review of Systems Review of Systems: All systems reviewed & are unremarkable except as noted in HPI & below Physical Exam Constitutional: + ill appearing Eyes: PERRL, conjunctivae normal, anicteric sclerae ENMT: Ears: no hearing impairment Respiratory: + audible wheezes Cardiovascular: Rate/Rhythm: + irregularly irregular Gastrointestinal (Abdomen): normal bowel sounds, soft, nontender, no hepatosplenomegaly Skin: Bilateral lower extremities are erythematous up to at least mid thigh. There is weeping and several small wounds on bilateral extremities. Wounds are covered with fibrin and slough. Neurologic: awake; not confused Psychiatric: A+Ox3, euthymic affect Results & Data Vital Signs (Past 12 Hours) Vital Signs Temp Pulse Pulse Pulse Resp BP BP 12/31/18 11:45 36.2 C L 93 H 16 145/71 H 12/31/18 11:20 88 20 12/31/18 09:55 12/31/18 07:39 95 H 22 109/63 12/31/18 07:19 96 H 12/31/18 06:54 88 16 12/31/18 03:02 37.0 C 102 H 22 136/63 12/31/18 02:17 90 24 Pulse Ox Pulse Ox Pulse Ox Pulse Ox 12/31/18 11:45 95 12/31/18 11:20 96 12/31/18 09:55 90 94 78 L 12/31/18 07:39 94 12/31/18 07:19 12/31/18 06:54 93 12/31/18 03:02 92 12/31/18 02:17 91 PG Care Time/CCT Total # of Minutes Spent Total Time Spent with Patient: Total time spent is greater than 50% in coordination of care (as documented) at patient's floor/unit and/or counseling patient:
[2018-12-31] MEDS ORDERED: BUMETANIDE 2 MG in SYRINGE 0 ML IV SCH (17:00)
[2018-12-31] MEDS: FERROUS SULFATE 325 MG TAB PO SCH (17:16)
--- NOTE | 2018-12-31 17:18 | Hospitalist Progress Note ---
Date of Service December 31, 2018 Assessment & Plan (1) CHF (congestive heart failure): Low output - will increase Bumex to 2 mg bid per cardiology rec and add metolazone tomorrow if output not improving as diuresis has been minimal Continue Low-sodium diet Continue Free fluid restriction to 1200 free water p.o. daily TTE with ejection fraction estimated to be 70%. Right ventricle systolic function is mildly reduced. The left ventricle is severely dilated. The right atrium is severely dilated. There is severe aortic stenosis. There is severe pulmonary hypertension with pulmonary artery pressure of 70 mmHg based on the right atrial pressure of 15 mmHg. Cardiology consulted Patient requiring 8L NC - will order for bipap overnight Will order Arnold for better monitoring of I&O as patient has had some incontinence (2) Bilateral cellulitis of lower leg: Has chronic venostasis with bilateral lower extremities lymphedema. Continue Rocephin started in the emergency room, added clindamycin 600 mg IV every 8 hours last evening - WBCs increased this morning, will allow for 24 hours with clindamycin and if no improvement tomorrow may need to change regimen Wound provider consulted - recommends Aquacel but no compression wrapping until CHF exacerbation resolved bilateral lower extremity dopplers negative for PE (3) COPD (chronic obstructive pulmonary disease): Acute COPD is exacerbated by pulmonary edema and congestive heart failure. Continue Duo nebs every 4 hours scheduled Titrate oxygen as needed to be above 92%. Patient uses at home 2 L 12/09 (4) Ambulatory dysfunction: PT/OT pending (5) Type 2 diabetes mellitus with chronic kidney disease: No current PO or injectable meds SSI PRN A1c 5.3 (6) Anemia: Baseline Hb 9.5-10.5 10.0 on admission Iron 16 - po iron initiated, could give some venofer infusions once fluid balance is a bit better (7) Chronic kidney disease, stage IV (severe): Baseline cr 2.9-3.3 Creat 3.5 today, low uo Consulted nephro - recommend Bumex drip vs torsemide - see above avoid nephrotoxic agents (8) Hypertension: Continue home meds:Bumex IV, aspirin 81 mg delayed release, continue isosorbide mononitrate 120 mg tablet extended release, continue potassium chloride 10 mEq p.o. every morning (9) Lymphedema: Appears that PCP was attempting to obtain authorization for home linda elio pumping. Patient would benefit from referral to [place] physical therapy for lymphedema at the discharge and home compression pumping. (10) Leg pain, right: Knee XR as noted, uncertain findings and will likely need f/u imaging with possible outpt ortho c/s Will need set up for this on d/c (11) Obstructive sleep apnea: Uses CT HS - will order bipap for overnight (12) Venous stasis dermatitis: Chronic, monitor, as above (13) Atrial fibrillation: continue home eliquis, does not appear to need rate control - per cardiology rec will change amlodipine to tid 60 mg diltiazem Diltiazem and simvastatin have increased risk for myopathy, patient is on lower dose of simvastatin - will need to monitor especially if continuing diltiazem after discharge. (14) Hyperlipidemia: Continue home simvastatin (15) Myocardial infarction: Hx of CT x2, 21 yrs ago and 6 yrs ago Denies stents Aspirin 81mg, simvastatin 20 mg p.o. every morning (16) Tobacco use disorder: Smokeless tobacco, declines nicotine patch (17) DVT prophylaxis: Continues already on Eliquis Supervising Physician Co-Signing Physician Notes I have reviewed the pt chart and discussed current care with Ms. Maddy NP and agree with her assessment and plan of this pt. Pt with declining status, nephro feels likely related to renal function Slightly concerning for possible PE on admission, however pt was feeling improved prior to moving to floor Likelihood is low given eliquis use, but pt is on lower dose and has BMI 40 Given ECHO with severe RA dilitation, worsening respiratory status, increased O2 requirements, and risk for PE--will start heparin to cover as unable to obtain CTA due to renal function LE US neg for DVT, again making this less likely, but this was a somewhat sudden turn of events BIPAP, increased bumex, added cardizem today Subjective Mr. Schreiber reports some coughing with drinking fluids. He otherwise has no complaints. ROS Constitutional: no chills, aches, sweats or fever Respiratory: no sob,cough, sputum, or wheezing Cardiac: no chest pain, palpitations, edema, orthopnea or lightheadedness GI: no abdominal pain, nausea, vomiting, diarrhea or constipation : no dysuria or hesitancy Extremities: no joint pain or weakness Skin: no rash All other systems reviewed and negative Physical Exam Physical Exam: General: no distress Eyes: normal inspection, PERLL Respiratory: chest non tender, course bases bilaterally, no respiratory distress, no accessory muscle use Cardiac: regular rate and rhythm, no rub or gallop, systolic murmur, le edema GI/: active bowel sounds, no abd pain or tenderness, soft, non distended, large ventral hernia Extremities: normal range of motion, normal strength, non tender Neuro/Psych: alert and oriented x 3, normal mood and affect Skin: normal color, dry, venous stasis lower extremities with erythema and weeping Results & Data Vital Signs (Past 12 Hours) Vital Signs Temp Pulse Pulse Pulse Resp BP BP 12/31/18 16:32 36.5 C 96 H 24 133/70 12/31/18 14:45 89 22 12/31/18 11:45 36.2 C L 93 H 16 145/71 H 12/31/18 11:20 88 20 12/31/18 09:55 12/31/18 07:39 95 H 22 109/63 12/31/18 07:19 96 H 12/31/18 06:54 88 16 Pulse Ox Pulse Ox Pulse Ox Pulse Ox 12/31/18 16:32 93 12/31/18 14:45 95 12/31/18 11:45 95 12/31/18 11:20 96 12/31/18 09:55 90 94 78 L 12/31/18 07:39 94 12/31/18 07:19 12/31/18 06:54 93 PG Care Time/CCT Total # of Minutes Spent Total Time Spent with Patient: Total time spent is greater than 50% in coordination of care (as documented) at patient's floor/unit and/or counseling patient: (1) CHF (congestive heart failure) Heart failure chronicity: unspecified Heart failure type: unspecified Qualified Code(s): I50.9 - Heart failure, unspecified (2) Hyperlipidemia Hyperlipidemia type: other hyperlipidemia Qualified Code(s): E78.49 - Other hyperlipidemia; E78.4 - Other hyperlipidemia (3) Hypertension Hypertension type: essential hypertension Qualified Code(s): I10 - Essential (primary) hypertension
[2018-12-31] MEDS ORDERED: BUMETANIDE 10 MG in DEXTROSE 5% 10 ML IV SCH (18:15)
[2018-12-31] MEDS ORDERED: HEPARIN SODIUM/DEXTROSE 25,000 UNITS/500 ML BAG IV SCH ×2 (18:30→19:10)
[2018-12-31] MEDS ORDERED: Heparin IV Low Dose *NO* Bolus IV SCH (18:33)
[2018-12-31 18:43] LABS: Allen Test POS (Pos); Base Excess ABG -0.9 mEq/L (-9-1.8); HCO3 ABG 27 mmol/L (19-24); Oxygen Saturation ABG 91.3 % (90-95); PCO2 ABG 62 mmHg (35-46); PO2 ABG 86 mm/Hg (80-95); pH ABG 7.26 (7.35-7.45)
[2018-12-31] MEDS: BUMETANIDE 10 MG in DEXTROSE 5% 10 ML IV SCH (19:00)
[2018-12-31] MEDS: dilTIAZem HCl 60 MG TAB PO SCH (21:22)
[2018-12-31] MEDS: BUDESONIDE/FORMOTEROL FUMARATE 80/4.5 60 PUFFS/INHALER INH SCH (21:24)
[2019-01-01] MEDS: CLINDAMYCIN 600 MG in DEXTROSE 5% 50 ML IV SCH ×4 (00:16→23:43)
[2019-01-01] MEDS: ALBUT/IPRATROP 3MG/0.5MG NEB 3 ML VIAL NEB SCH ×6 (01:47→23:10)
[2019-01-01 01:50] LABS: Hematocrit (blood only) 27.4 % (42-52); Hemoglobin 8.7 g/dL (14.0-18.0); Immature Granulocytes # (auto) 0.02 K/uL (0.00-0.02); Immature Granulocytes % (auto) 0.2 %; Lymphocytes # (auto) 0.52 K/uL (1.2-3.4); Lymphocytes % (auto) 5.8 %; Mean Corpuscular Hgb Conc 31.8 g/dL (32-36); Mean Corpuscular Volume 88.1 fL (80-100); Mean Platelet Volume 8.8 fL (7.4-10.4); Monocytes # (auto) 0.48 K/uL (0.11-0.59); Monocytes % (auto) 5.4 %; Neutrophils # (auto) 7.94 K/uL (1.4-6.5); Neutrophils % (auto) 88.6 %; Platelet Count 160 K/uL (130-400); RDW Standard Deviation 54.5 fL (36.4-46.3); Red Blood Count 3.11 M/uL (4.7-6.1); White Blood Count 8.96 K/uL (4.8-10.8)
[2019-01-01] MEDS ORDERED: HEPARIN IV BOLUS 4,000 UNITS in SYRINGE 0 ML IV ONE ×2 (04:45→10:26)
[2019-01-01 04:54] LABS: Albumin Globulin Ratio 0.4 (0.9-2); Albumin Level 2.2 gm/dl (3.4-5.0); BUN Creatinine Ratio 19.1 (10-20); Bilirubin,Total 0.5 mg/dl (0.2-1); Calcium 8.8 mg/dl (8.5-10.1); Creatinine Clr Calc Pharmacy 21.2 ml/min; Est GFR (African American) 17.4; Potassium 4.2 mmol/L (3.5-5.1); Total Protein 7.2 gm/dl (6.4-8.2)
[2019-01-01 05:29] LABS: Partial Thromboplastin Ratio 1.5; Partial Thromboplastin Time 41.4 Seconds (21.0-31.0)
[2019-01-01] MEDS: INSULIN ASPART 100 UNITS/ML 3 ML PEN SC SCH ×4 (08:39→20:45)
[2019-01-01] MEDS: FERROUS SULFATE 325 MG TAB PO SCH ×2 (08:42→16:52)
[2019-01-01] MEDS: ASPIRIN 81 MG ECTAB PO SCH (08:44)
[2019-01-01] MEDS: POTASSIUM CHLORIDE 10 MEQ TABCR PO SCH (08:45)
[2019-01-01] MEDS: ISOSORBIDE MONO EXTENDED REL 60 MG TABCR PO SCH (08:46)
[2019-01-01] MEDS: SIMVASTATIN 20 MG TAB PO SCH (08:47)
[2019-01-01] MEDS: LACTOBACILLUS ACIDOPHILUS (FLORANEX) TAB PO SCH ×4 (08:47→20:35)
[2019-01-01] MEDS ORDERED: EPOETIN ALFA 10,000 UNITS/ML VIAL SQ ONE (08:48)
[2019-01-01] MEDS: dilTIAZem HCl 60 MG TAB PO SCH ×3 (08:49→20:36)
[2019-01-01] MEDS: TRIAMCINOLONE ACET 0.1% OINT 15 GM TUBE TOP SCH ×2 (08:51→20:41)
[2019-01-01] MEDS: BUDESONIDE/FORMOTEROL FUMARATE 80/4.5 60 PUFFS/INHALER INH SCH ×2 (08:55→20:42)
--- NOTE | 2019-01-01 09:49 | Cardiology Progress Note ---
Date of Service January 01, 2019 Assessment & Plan (1) Acute diastolic heart failure: 2. Moderate to severe aortic stenosis 3. Moderate mitral stenosis 4. Severe pulmonary hypertension 5. Stage IV CKD 6. Chronic lower extremity lymphedema 7. Persistent atrial fibrillation 8. Anemia 9. History of reported coronary artery disease Moderate urine output yesterday -- started on Bumex drip last night still with labored breathing this morning on 8 L O2 Renal function stable On exam well-perfused, significant persistent congestion Continue Bumex drip Recommend adding metolazone Increase diltiazem to 90 mg 3 times daily, goal heart rate less than 70 -Continue anticoagulation (low suspicion for PE, PH/elevated right sided filling pressures likely multifactorial in the setting of HF/mixed valvular heart disease/JOSE/lung disease) Will continue to follow Subjective Denies significant dyspnea today although breathing looks labored this morning. Denies chest pain. No other complaints Started on Bumex drip overnight Recorded urine output modest. Weights unreliable. Review of Systems Review of Systems: All systems reviewed & are unremarkable except as noted in HPI & below Physical Exam Constitutional: + morbidly obese and + disheveled Eyes: + anicteric sclerae Respiratory: + labored breathing Auscultation: + diminished lung sounds (At bases bilaterally), + crackles (Few at bases) and + wheezes Cardiovascular: Rate/Rhythm: + irregularly irregular Heart Sounds: + murmur (3/6 systolic ejection murmur heard best at right upper sternal border, holosystolic murmur heard best at left lower sternal border) Vessels: + JVD (Unable to assess) Extremities: + edema (Legs erythematous, 3+ edema with chronic stasis changes to the knee, small areas of skin breakdown) Gastrointestinal (Abdomen): Inspection/Auscultation: normal bowel sounds Percussion/Palpation: abdomen soft; abdomen nontender Skin: + erythema (Legs bilaterally) Neurologic: no focal motor deficits Psychiatric: A+Ox3, euthymic affect Results & Data Vital Signs (Past 12 Hours) Vital Signs Temp Pulse Pulse Pulse Resp BP Pulse Ox 01/01/19 08:26 85 01/01/19 07:27 91 H 24 94 01/01/19 07:16 97.5 F L 88 22 138/77 92 01/01/19 04:00 96 01/01/19 03:08 97.9 F 87 20 129/75 99 01/01/19 01:51 97 H 18 94 01/01/19 01:48 73 22 96 01/01/19 00:03 97.2 F L 96 H 20 139/81 92 12/31/18 23:40 94 H 12/31/18 23:21 89 19 95 12/31/18 23:19 89 19 95 PG Care Time/CCT Total # of Minutes Spent Total Time Spent with Patient: Total time spent is greater than 50% in coordination of care (as documented) at patient's floor/unit and/or counseling patient:
--- NOTE | 2019-01-01 10:07 | Palliative Care Consultation ---
Date of Consultation January 01, 2019 Assessment & Plan (1) Goals of care, counseling/discussion: -78 year old male patient with PMH right sided heart failure, JOSE on CPAP, afib, CAD, MO, chronic lower extremity lypmphedema, stage IV CKD, HHLD, morbid obesity, moderate aortic stenosis, and others, presented to the hospital with c/o lower extremity weakness, redness and swelling. Upon admission, his BNP was elevated to about 20k, CXR showed heart failure, creatinine 3.1. Patient's renal impairment has been attributed to his right sided heart failure, and apparently there have been discussions with nephrology that patient would not want dialysis if renal function continues to decline. At home, patient is on torsemide 40mg BID, metolazone 2.5mg twice weekly. In hospital patient was started on Bumex 1mg IV BID, his urine output remained suboptimal. Cardiology and nephrology consulted here. Welding Teacher recommended Bumex 2mg IV BID, but nephro started a continuous Bumex gtt last evening. His amlodipine was stopped and he was placed on diltiazem due to poor rate control with his afib. Creatinine has remained relatively stable in the mid-3's. Last evening patient became hypoxic and had some increased respiratory distress. ABGs revealed respiratory acidosis with pH 7.26, PCO2 62. Patient placed on bipap. Heparin gtt started, unable to obtain CTA chest to rule out PE due to renal function. Venous doppler negative for DVT on admission. Palliative care is consulted to discuss goals of care. -Met with patient, his daughter in law, grandson and granddaughter in room 289- 2. patient on oxymask and oriented x4. Patient states he is still SOB, but not in distress. -Patient states that he does not wish to have heroic measures done, would not want dialysis. He states he wants to continue current care and try to get some of this fluid off so he is more comfortable. -Patient's goal is to get home with hospice. His family is in agreement. -For now, continue current medical care. Patient is okay with continuing Bumex gtt, using bipap short-term if needed, and heparin gtt to bridge. -Discussed code status. Patient does not want intubation or CPR. Will transition to DO NOT RESUSCITATE. -Patient's is having ear surgery today. I will continue to follow and speak with about goals as well. -Can use Roxanol for pain or SOB, but discussed with patient and family and will hold off on this for now until we see if patient is going to diurese. (2) Acute and chronic respiratory failure with hypoxia: (3) Acute on chronic diastolic (congestive) heart failure: (4) Chronic kidney disease, stage IV (severe): Supervising Physician Co-Signing Physician Notes Chart reviewed, patient seen and examined Collaborated with PRIYANK Amin Patient seen and examined with multiple family members at bedside including patient's , daughter, granddaughter, grandson in law and great granddaughter. Patient states his breathing has improved with aggressive diuresis. PE: Mild increased work of breathing-on O2 at 8 L via oxy mask HEENT: EOMI, hearing within normal limits Respirations slightly labored with speech, decreased breath sounds right base- dependent position CV: Rate controlled Abdomen: Obese, soft, nontender Extremities: 3+ edema-improving Neuro: Alert and oriented Agree with above note, assessment and plan as per PRIYANK Amin. Plan is for discharge home when medically stable with hospice care. History of Present Illness Attending Physician: Luis Hayward MD History of Present Illness This 78 year old male patient with PMH right sided heart failure, JOSE on CPAP, afib, CAD, MO, chronic lower extremity lypmphedema, stage IV CKD, HHLD, morbid obesity, moderate aortic stenosis, and others, presented to the hospital with c/o lower extremity weakness, redness and swelling. Upon admission, his BNP was elevated to about 20k, CXR showed heart failure, creatinine 3.1. Patient's renal impairment has been attributed to his right sided heart failure, and apparently there have been discussions with nephrology that patient would not want dialysis if renal function continues to decline. At home, patient is on torsemide 40mg BID, metolazone 2.5mg twice weekly. In hospital patient was started on Bumex 1mg IV BID, his urine output remained suboptimal. Cardiology and nephrology consulted here. Welding Teacher recommended Bumex 2mg IV BID, but nephro started a continuous Bumex gtt last evening. His amlodipine was stopped and he was placed on diltiazem due to poor rate control with his afib. Creatinine has remained relatively stable in the mid-3's. Last evening patient became hypoxic and had some increased respiratory distress. ABGs revealed respiratory acidosis with pH 7.26, PCO2 62. Patient placed on bipap. Heparin gtt started, unable to obtain CTA chest to rule out PE due to renal function. Venous doppler negative for DVT on admission. Palliative care is consulted to discuss goals of care. Thank you kindly for this consult. Palliative care team will follow as needed. Allergies Allergy/AdvReac Type Severity Reaction Status Date / Time No Known Allergies Allergy Unverified 12/29/18 12:53 Home Medications Home Medications Medication Instructions Recorded Confirmed Type acetaminophen 500 mg tablet 500 mg PO Q6H PRN tab 07/05/18 12/29/18 History Oxygen Home #1 ea 08/06/18 12/29/18 Rx amlodipine 5 mg tablet 5 mg PO QAM #30 tab 08/06/18 12/29/18 History apixaban 2.5 mg tablet 2.5 mg PO BID #60 tab 08/06/18 12/29/18 Rx ergocalciferol (vitamin D2) 50,000 50,000 units PO MONTHLY cap 08/06/18 12/29/18 History unit capsule isosorbide mononitrate 120 mg 120 mg PO QAM #90 tab 08/06/18 12/29/18 History tablet,extended release 24 hr simvastatin 20 mg tablet 20 mg PO QAM #30 tab 08/06/18 12/29/18 History torsemide 20 mg tablet 40 mg PO BID #120 tab 08/06/18 12/29/18 History aspirin 81 mg tablet,delayed 81 mg PO QAM tab 10/03/18 12/29/18 History release triamcinolone acetonide 0.1 % 1 appln TOP BID #80 gm 11/21/18 12/29/18 Rx topical ointment albuterol sulfate 2.5 mg INHALATION Q4H PRN 12/29/18 12/29/18 History albuterol sulfate [Ventolin HFA] 2 puffs INH Q4H PRN 12/29/18 12/29/18 History fluticasone furoate-vilanterol 1 puffs INH QAM 12/29/18 12/29/18 History [Breo Ellipta] iron 18 mg PO QAM 12/29/18 12/29/18 History potassium chloride 10 meq PO QAM 12/29/18 12/29/18 History Patient History Medical History Anemia (Chronic) Anxiety (Acute) Aortic stenosis (Acute) Arthritis (Acute) Asthma (Acute) Cervicalgia (Acute) Chronic kidney disease, stage IV (severe) (Chronic) Depression (Acute) Diabetes mellitus (Acute) Hypertension (Chronic) Lymphedema (Chronic) Obstructive sleep apnea (Acute) Venous stasis dermatitis (Acute) Vitamin D deficiency (Chronic) CHF (congestive heart failure) (Chronic) COPD (chronic obstructive pulmonary disease) (Chronic) Atrial fibrillation Hyperlipidemia (Chronic) Myocardial infarction CHF exacerbation Pneumonia Family History Mother Myocardial infarction Brother Myocardial infarction Father Unknown family medical history Other Family history non-contributory Social History Preferred Language: Malaysian Communication Ability: Effective Beliefs That Will Affect Care: None marital status: Current Living Situation: Spouse current occupational status: retired Feels Safe at Home: Yes Smoking Status: Former smoker Tobacco Type: smokeless tobacco ; Hx Alcohol Use: No Hx Substance Use: No Review of Systems Review of Systems: Const: + weakness ENMT: No dysphagia Resp: + SOB Cardio: No chest pain, + BLE edema GI: No abdominal pain, no N/V MS: No musculoskeletal pain Neuro: No confusion Psych: No anxiety Physical Exam Constitutional: + ill appearing and + obese ENMT: external ear and nose normal, oropharynx normal Respiratory: + labored breathing Auscultation: + rhonchi and + wheezes (expiratory) Cardiovascular: Rate/Rhythm: + irregularly irregular Extremities: + edema (+3 BLE) Gastrointestinal (Abdomen): Inspection/Auscultation: normal bowel sounds Percussion/Palpation: abdomen soft; abdomen nontender Skin: see picture of lower extremities Neurologic: moves all extremities and awake Psychiatric: Orientation: alert and oriented x 3 Insight: good insight Results & Data Vital Signs (Past 12 Hours) Vital Signs Temp Pulse Pulse Pulse Resp BP Pulse Ox 01/01/19 08:26 85 01/01/19 07:27 91 H 24 94 01/01/19 07:16 36.4 C L 88 22 138/77 92 01/01/19 04:00 96 11/12/19 03:08 36.6 C 87 20 129/75 99 01/01/19 01:51 97 H 18 94 01/01/19 01:48 73 22 96 01/01/19 00:03 36.2 C L 96 H 20 139/81 92 12/31/18 23:40 94 H 12/31/18 23:21 89 19 95 12/31/18 23:19 89 19 95 Time Spent Midlevel 70 minutes with >50% of the time spent at bedside with patient and family discussing condition and GOC.
[2019-01-01 10:08] LABS: Partial Thromboplastin Ratio 1.6; Partial Thromboplastin Time 44.1 Seconds (21.0-31.0)
[2019-01-01] MEDS: BUMETANIDE 10 MG in DEXTROSE 5% 10 ML IV SCH ×2 (10:19→20:34)
[2019-01-01] MEDS ORDERED: CHLOROTHIAZIDE SODIUM 500 MG in DEXTROSE 5% 50 ML IV ONE (10:30)
--- NOTE | 2019-01-01 10:54 | Nephrology Progress Note ---
Date of Service January 01, 2019 Assessment & Plan (1) Acute diastolic heart failure: (2) JOSE (obstructive sleep apnea): (3) Type 2 diabetes mellitus with chronic kidney disease: (4) Anemia: (5) Aortic stenosis: (6) Chronic kidney disease, stage IV (severe): Patient remains in decompensated congestive heart failure secondary to disease advanced renal impairment. Input and output has essentially been matched with the use of the Bumex drip. I increased the rate of infusion to 1 milligram/hour and provided the dose of IV Diuril this morning. After discussion with the patient and his family, it is clear goals of care remained palliative. A palliative care consultation is pending. Patient has refused dialysis. We will continue to attempt diuresis for symptomatic improvement. Epogen 87084 units was provided for anemia. Medications are appropriately dosed for kidney function. Metabolic profile will be monitored closely while the patient is receiving aggressive diuretics. (7) Hypertension: (8) Lymphedema: (9) Venous stasis dermatitis: Subjective Oswaldo was seen and evaluated with his family at the bedside this morning. We have not been able to generate effective diuresis with the Bumex drip at 0.5 milligrams/hour. He does report improvement in his symptoms. However, his breathing remains visibly labored. Arnold is draining pink blood-tinged urine. Patient denies any pain. Overall, he states he feels well. He told me this morning that he plans to on so that his family will remember him. He adamantly refuses dialysis. Review of Systems Review of Systems: All systems reviewed & are unremarkable except as noted in HPI & below Physical Exam Constitutional: + ill appearing and + frail appearing Eyes: no scleral abnormality and no corneal abnormality ENMT: Mouth: no oral mucosal abnormality and oral mucous membranes not dry Neck: normal visual inspection; + trachea not midline Respiratory: + labored breathing Auscultation: + rales Cardiovascular: Rate/Rhythm: regular rate Heart Sounds: normal S1 and normal S2 Extremities: + edema Gastrointestinal (Abdomen): Inspection/Auscultation: + abdomen distended Percussion/Palpation: abdomen nontender Musculoskeletal: Extremities: no cyanosis and no clubbing Skin: normal turgor; no lesions Neurologic: Motor/Sensory: no tremor and no asterixis Psychiatric: Orientation: alert and oriented x 3 Results & Data Vital Signs (Past 12 Hours) Vital Signs Temp Pulse Pulse Pulse Resp BP Pulse Ox 01/01/19 08:26 85 01/01/19 07:27 91 H 24 94 01/01/19 07:16 36.4 C L 88 22 138/77 92 01/01/19 04:00 96 01/01/19 03:08 36.6 C 87 20 129/75 99 01/01/19 01:51 97 H 18 94 01/01/19 01:48 73 22 96 01/01/19 00:03 36.2 C L 96 H 20 139/81 92 12/31/18 23:40 94 H 12/31/18 23:21 89 19 95 12/31/18 23:19 89 19 95 Laboratory Results Laboratory Results - last 24 hr 12/31/18 12/31/18 12/31/18 11:16 16:54 18:27 WBC RBC Hgb Hct MCV MCH MCHC RDW Std Deviation RDW Coeff of Jarod Plt Count MPV Immature Gran % (Auto) Neut % (Auto) Lymph % (Auto) Perry % (Auto) Eos % (Auto) Baso % (Auto) Immature Gran # (Auto) Neut # (Auto) Lymph # (Auto) Perry # (Auto) Eos # (Auto) Baso # (Auto) APTT PTT Ratio ABG pH 7.26 L ABG pCO2 62 H ABG pO2 86 ABG HCO3 27 H ABG O2 Saturation 91.3 ABG Base Excess -0.9 Akshat Test POS Barometric Pressure 727.4 Oxygen Given 8L O2 Sodium Potassium Chloride Carbon Dioxide Anion Gap BUN Creatinine Est Cr Clr Drug Dosing Est GFR ( Amer) Est GFR (Non-Af Amer) BUN/Creatinine Ratio Glucose POC Glucose 126 H 127 H Calcium Total Bilirubin AST ALT Alkaline Phosphatase Total Protein Albumin Globulin Albumin/Globulin Ratio 12/31/18 01/01/19 01/01/19 21:09 01:24 01:24 WBC 8.96 RBC 3.11 L Hgb 8.7 L Hct 27.4 L MCV 88.1 MCH 28.0 MCHC 31.8 L RDW Std Deviation 54.5 H RDW Coeff of Jarod 17.0 H Plt Count 160 MPV 8.8 Immature Gran % (Auto) 0.2 Neut % (Auto) 88.6 Lymph % (Auto) 5.8 Perry % (Auto) 5.4 Eos % (Auto) 0.0 Baso % (Auto) 0.0 Immature Gran # (Auto) 0.02 Neut # (Auto) 7.94 H Lymph # (Auto) 0.52 L Perry # (Auto) 0.48 Eos # (Auto) 0.00 Baso # (Auto) 0.00 APTT PTT Ratio ABG pH ABG pCO2 ABG pO2 ABG HCO3 ABG O2 Saturation ABG Base Excess Akshat Test Barometric Pressure Oxygen Given Sodium 142 Potassium 4.2 Chloride 107 Carbon Dioxide 28 Anion Gap 7.0 BUN 70 H Creatinine 3.67 H Est Cr Clr Drug Dosing 21.2 Est GFR ( Amer) 17.4 Est GFR (Non-Af Amer) 15.0 BUN/Creatinine Ratio 19.1 Glucose 120 H POC Glucose 150 H Calcium 8.8 Total Bilirubin 0.5 AST 12 L ALT 13 Alkaline Phosphatase 141 H Total Protein 7.2 Albumin 2.2 L Globulin 5.0 H Albumin/Globulin Ratio 0.4 L 01/01/19 01/01/19 01/01/19 01:24 07:54 09:42 WBC RBC Hgb Hct MCV MCH MCHC RDW Std Deviation RDW Coeff of Jarod Plt Count MPV Immature Gran % (Auto) Neut % (Auto) Lymph % (Auto) Perry % (Auto) Eos % (Auto) Baso % (Auto) Immature Gran # (Auto) Neut # (Auto) Lymph # (Auto) Perry # (Auto) Eos # (Auto) Baso # (Auto) APTT 41.4 H 44.1 H PTT Ratio 1.5 1.6 ABG pH ABG pCO2 ABG pO2 ABG HCO3 ABG O2 Saturation ABG Base Excess Akshat Test Barometric Pressure Oxygen Given Sodium Potassium Chloride Carbon Dioxide Anion Gap BUN Creatinine Est Cr Clr Drug Dosing Est GFR ( Amer) Est GFR (Non-Af Amer) BUN/Creatinine Ratio Glucose POC Glucose 92 Calcium Total Bilirubin AST ALT Alkaline Phosphatase Total Protein Albumin Globulin Albumin/Globulin Ratio PG Care Time/CCT Total # of Minutes Spent Total Time Spent with Patient: Total time spent is greater than 50% in coordination of care (as documented) at patient's floor/unit and/or counseling patient: (1) Hypertension Hypertension type: essential hypertension Qualified Code(s): I10 - Essential (primary) hypertension
[2019-01-01] MEDS: cefTRIAXone SODIUM 2,000 MG in DEXTROSE 5% 50 ML IV SCH (12:09)
--- NOTE | 2019-01-01 12:36 | Hospitalist Progress Note ---
Date of Service January 01, 2019 Assessment & Plan (1) Acute on chronic diastolic (congestive) heart failure: Bumex gtt increased per nephro, given 2.5 mg of metolazone per cardiology rec Continue Low-sodium diet Continue Free fluid restriction to 1200 free water p.o. daily TTE with ejection fraction estimated to be 70%. Right ventricle systolic function is mildly reduced. The left ventricle is severely dilated. The right atrium is severely dilated. There is severe aortic stenosis. There is severe pulmonary hypertension with pulmonary artery pressure of 70 mmHg based on the right atrial pressure of 15 mmHg. Patient requiring 8L NC - bipap as needed Strict I&O - patient has Arnold (2) Acute and chronic respiratory failure with hypoxia: Now requiring 6 - 8L NC (3) COPD (chronic obstructive pulmonary disease): Acute COPD is exacerbated by pulmonary edema and congestive heart failure. Continue Duo nebs every 4 hours scheduled Titrate oxygen as needed to be above 92%. Patient uses O2 at home 2 L / (4) Bilateral cellulitis of lower leg: Has chronic venostasis with bilateral lower extremities lymphedema. Continue Rocephin and clindamycin 600 mg IV every 8 hours last evening - WBCs decreased Wound provider consulted - recommends Aquacel but no compression wrapping until CHF exacerbation resolved Bilateral lower extremity dopplers negative for PE (5) Ambulatory dysfunction: PT/OT pending (6) Type 2 diabetes mellitus with chronic kidney disease: No current PO or injectable meds SSI PRN A1c 5.3 (7) Anemia: Baseline Hb 9.5-10.5 10.0 on admission Iron 16 - po iron initiated, could give some venofer infusions once fluid balance is a bit better (8) Chronic kidney disease, stage IV (severe): Baseline cr 2.9-3.3 Creat increasing Consulted nephro - recommend Bumex drip vs torsemide - see above avoid nephrotoxic agents (9) Hypertension: Continue home meds:Bumex IV, aspirin 81 mg delayed release, continue isosorbide mononitrate 120 mg tablet extended release, continue potassium chloride 10 mEq p.o. every morning, diltiazem increased per cardiology (10) Lymphedema: Appears that PCP was attempting to obtain authorization for home compression pumping. Patient would benefit from referral to [place] [facility] for lymphedema at the discharge and home compression pumping. (11) Leg pain, right: Knee XR as noted, uncertain findings and will likely need f/u imaging with possible outpt ortho c/s Will need set up for this on d/c (12) Obstructive sleep apnea: Uses NC HS - bipap prn (13) Venous stasis dermatitis: Chronic, monitor, as above (14) Atrial fibrillation: held home eliquis and started heparin gtt due to concern for PE however per nursing, he is coughing up small amount of bright red blood so will dc heparin gtt. Will resume apixaban when bleeding has resolved. Unable to scan for PE due to kidney function, it is low on the differential but unable to rule out. Per cardiology rec changed amlodipine to diltiazem and increased today to 90 mg tid Diltiazem and simvastatin have increased risk for myopathy - hold simvastatin for now (15) Hyperlipidemia: on hold as above (16) Myocardial infarction: Hx of RI x2, 21 yrs ago and 6 yrs ago Denies stents Aspirin 81mg, every morning, simvastatin on hold (17) Tobacco use disorder: Smokeless tobacco, declines nicotine patch (18) DVT prophylaxis: Anticoagulation as above Dispo: Palliative consulted - patient made DNR. Would like to continue treatment to increase comfort and will possibly dc with hospice. He does not want dialysis Subjective Continues to require quite a bit of oxygen supplementation. His output has increased and is keeping pace with intake. He is coughing but non productive, however according to nursing he has started to cough bright red blood ROS Constitutional: no chills, aches, sweats or fever Respiratory: see HPI Cardiac: no chest pain, palpitations, edema, orthopnea or lightheadedness GI: no abdominal pain, nausea, vomiting, diarrhea or constipation : no dysuria or hesitancy Extremities: no joint pain or weakness Skin: no rash All other systems reviewed and negative Physical Exam Physical Exam: General: no distress Eyes: normal inspection, PERLL Respiratory: chest non tender, course with expiratory wheezes bilaterally, no respiratory distress, no accessory muscle use Cardiac: regular rate and rhythm, no rub or gallop, systolic murmur, pitting edema lower extremities GI/: active bowel sounds, no abd pain or tenderness, soft, non distended Extremities: normal range of motion, normal strength, non tender Neuro/Psych: alert and oriented x 3, normal mood and affect Skin: normal color, dry Results & Data Vital Signs (Past 12 Hours) Vital Signs Temp Pulse Pulse Pulse Resp BP Pulse Ox 01/01/19 11:35 97 H 22 88 L 01/01/19 11:04 36.3 C L 92 H 28 H 138/73 94 01/01/19 08:26 85 01/01/19 07:27 91 H 24 94 01/01/19 07:16 36.4 C L 88 22 138/77 92 01/01/19 04:00 96 01/01/19 03:08 36.6 C 87 20 129/75 99 01/01/19 01:51 97 H 18 94 01/01/19 01:48 73 22 96 PG Care Time/CCT Total # of Minutes Spent Total Time Spent with Patient: Total time spent is greater than 50% in coordination of care (as documented) at patient's floor/unit and/or counseling patient: (1) Hyperlipidemia Hyperlipidemia type: other hyperlipidemia Qualified Code(s): E78.49 - Other hyperlipidemia; E78.4 - Other hyperlipidemia (2) Hypertension Hypertension type: essential hypertension Qualified Code(s): I10 - Essential (primary) hypertension
[2019-01-01] MEDS ORDERED: metOLazone 2.5 MG TABLET PO ONE (13:02)
[2019-01-02] MEDS: ALBUT/IPRATROP 3MG/0.5MG NEB 3 ML VIAL NEB SCH ×6 (03:16→22:08)
[2019-01-02] MEDS: BUMETANIDE 10 MG in DEXTROSE 5% 10 ML IV SCH ×3 (06:23→20:22)
[2019-01-02 06:46] LABS: Basophils # (auto) 0.01 K/uL (0-0.2); Basophils % (auto) 0.1 %; Eosinophils # (auto) 0.05 K/uL (0-0.5); Eosinophils % (auto) 0.5 %; Hematocrit (blood only) 29.7 % (42-52); Hemoglobin 9.4 g/dL (14.0-18.0); Immature Granulocytes # (auto) 0.02 K/uL (0.00-0.02); Immature Granulocytes % (auto) 0.2 %; Lymphocytes # (auto) 0.65 K/uL (1.2-3.4); Lymphocytes % (auto) 7.1 %; Mean Corpuscular Hemoglobin 27.6 pg (25-34); Mean Corpuscular Hgb Conc 31.6 g/dL (32-36); Mean Corpuscular Volume 87.4 fL (80-100); Mean Platelet Volume 8.6 fL (7.4-10.4); Monocytes # (auto) 0.56 K/uL (0.11-0.59); Monocytes % (auto) 6.1 %; Neutrophils # (auto) 7.92 K/uL (1.4-6.5); Platelet Count 203 K/uL (130-400); RDW Standard Deviation 54.4 fL (36.4-46.3); White Blood Count 9.21 K/uL (4.8-10.8)
[2019-01-02 06:57] LABS: Partial Thromboplastin Ratio 1.2; Partial Thromboplastin Time 33.8 Seconds (21.0-31.0)
[2019-01-02 07:21] LABS: Albumin Level 2.4 gm/dl (3.4-5.0); BUN Creatinine Ratio 21.7 (10-20); Calcium 9.1 mg/dl (8.5-10.1); Creatinine Clr Calc Pharmacy 20.6 ml/min; Est GFR (African American) 16.6; Est GFR (Non-African American) 14.3; Potassium 3.9 mmol/L (3.5-5.1)
[2019-01-02 07:23] LABS: Albumin Globulin Ratio 0.4 (0.9-2); Bilirubin,Total 0.5 mg/dl (0.2-1); Globulin 5.4 gm/dl (2.5-4.0); Phosphorus 6.4 mg/dl (2.5-4.9); Total Protein 7.8 gm/dl (6.4-8.2)
[2019-01-02] MEDS: ISOSORBIDE MONO EXTENDED REL 60 MG TABCR PO SCH (07:55)
[2019-01-02] MEDS: CLINDAMYCIN 600 MG in DEXTROSE 5% 50 ML IV SCH ×2 (07:55→16:58)
[2019-01-02] MEDS: BUDESONIDE/FORMOTEROL FUMARATE 80/4.5 60 PUFFS/INHALER INH SCH ×2 (07:55→20:26)
[2019-01-02] MEDS: ASPIRIN 81 MG ECTAB PO SCH (07:55)
[2019-01-02] MEDS: POTASSIUM CHLORIDE 10 MEQ TABCR PO SCH (07:55)
[2019-01-02] MEDS: FERROUS SULFATE 325 MG TAB PO SCH ×2 (07:55→17:00)
[2019-01-02] MEDS: LACTOBACILLUS ACIDOPHILUS (FLORANEX) TAB PO SCH ×4 (07:55→20:24)
[2019-01-02] MEDS: dilTIAZem HCl 60 MG TAB PO SCH ×3 (07:55→20:23)
[2019-01-02] MEDS: TRIAMCINOLONE ACET 0.1% OINT 15 GM TUBE TOP SCH ×2 (07:56→20:26)
[2019-01-02] MEDS ORDERED: metOLazone 5 MG TABLET PO ONE (08:12)
[2019-01-02] MEDS: INSULIN ASPART 100 UNITS/ML 3 ML PEN SC SCH ×4 (08:13→20:35)
[2019-01-02] MEDS: APIXABAN 2.5 MG TAB PO SCH ×2 (08:36→20:25)
--- NOTE | 2019-01-02 10:18 | Nephrology Progress Note ---
Date of Service January 02, 2019 Assessment & Plan (1) Acute diastolic heart failure: (2) JOSE (obstructive sleep apnea): (3) Type 2 diabetes mellitus with chronic kidney disease: (4) Anemia: (5) Aortic stenosis: (6) Chronic kidney disease, stage IV (severe): Patient remains in decompensated congestive heart failure secondary to advanced renal impairment. He has refused dialysis. Urine output improved with Bumex gtt along with combination diuretic therapy. The gtt has been increased to 1 mg/hr. An additional dose of metolazone 5 mg was provided this morning. The gtt will be continued for now to help with diuresis while arrangements for hospice are coordinated. Oswaldo told me this morning that he is resolved to go home with hospice. His goal is to be able to spend time with family. Once, this has been coordinated, I would suggest transitioning to a large dose of PO Bumex. Arnold remains intact at patient's request. Urine is now clear. (7) Hypertension: (8) Lymphedema: (9) Venous stasis dermatitis: Subjective No acute events overnight. Oswaldo states that he feels better this morning. He stated that he wants to go home. He is prepared to go home with hospice. Review of Systems Review of Systems: All systems reviewed & are unremarkable except as noted in HPI & below Physical Exam Constitutional: + ill appearing and + frail appearing Eyes: no scleral abnormality and no corneal abnormality ENMT: Mouth: no oral mucosal abnormality and oral mucous membranes not dry Neck: normal visual inspection; + trachea not midline Respiratory: + labored breathing Auscultation: + rales Cardiovascular: Rate/Rhythm: regular rate Heart Sounds: normal S1 and normal S2 Extremities: + edema Gastrointestinal (Abdomen): Inspection/Auscultation: + abdomen distended Percussion/Palpation: abdomen nontender Musculoskeletal: Extremities: no cyanosis and no clubbing Skin: normal turgor; no lesions Neurologic: Motor/Sensory: no tremor and no asterixis Psychiatric: Orientation: alert and oriented x 3 Results & Data Vital Signs (Past 12 Hours) Vital Signs Temp Pulse Pulse Pulse Pulse Resp BP 01/02/19 08:00 36.6 C 80 84 22 146/81 H 01/02/19 07:14 81 22 01/02/19 07:00 82 82 21 01/02/19 04:33 36.3 C L 80 18 01/02/19 03:18 78 24 01/02/19 03:17 78 24 01/02/19 01:22 71 01/02/19 00:36 36.4 C L 52 L 18 135/74 01/01/19 23:11 71 22 BP Pulse Ox 01/02/19 08:00 94 01/02/19 07:14 94 01/02/19 07:00 94 01/02/19 04:33 148/87 H 93 01/02/19 03:18 95 01/02/19 03:17 95 01/02/19 01:22 01/02/19 00:36 94 01/01/19 23:11 94 Laboratory Results Laboratory Results - last 24 hr 01/01/19 01/01/19 01/01/19 11:21 16:45 20:18 WBC RBC Hgb Hct MCV MCH MCHC RDW Std Deviation RDW Coeff of Jarod Plt Count MPV Immature Gran % (Auto) Neut % (Auto) Lymph % (Auto) [place] % (Auto) Eos % (Auto) Baso % (Auto) Immature Gran # (Auto) Neut # (Auto) Lymph # (Auto) [place] # (Auto) Eos # (Auto) Baso # (Auto) APTT PTT Ratio Sodium Potassium Chloride Carbon Dioxide Anion Gap BUN Creatinine Est Cr Clr Drug Dosing Est GFR ( Amer) Est GFR (Non-Af Amer) BUN/Creatinine Ratio Glucose POC Glucose 101 H 95 107 H Calcium Phosphorus Total Bilirubin AST ALT Alkaline Phosphatase Total Protein Albumin Globulin Albumin/Globulin Ratio 01/02/19 01/02/19 01/02/19 06:30 06:30 06:30 WBC 9.21 RBC 3.40 L Hgb 9.4 L Hct 29.7 L MCV 87.4 MCH 27.6 MCHC 31.6 L RDW Std Deviation 54.4 H RDW Coeff of Jarod 17.0 H Plt Count 203 MPV 8.6 Immature Gran % (Auto) 0.2 Neut % (Auto) 86.0 Lymph % (Auto) 7.1 [place] % (Auto) 6.1 Eos % (Auto) 0.5 Baso % (Auto) 0.1 Immature Gran # (Auto) 0.02 Neut # (Auto) 7.92 H Lymph # (Auto) 0.65 L [place] # (Auto) 0.56 Eos # (Auto) 0.05 Baso # (Auto) 0.01 APTT 33.8 H PTT Ratio 1.2 Sodium 141 Potassium 3.9 Chloride 104 Carbon Dioxide 26 Anion Gap 11.0 BUN 83 H Creatinine 3.81 H Est Cr Clr Drug Dosing 20.6 Est GFR ( Amer) 16.6 Est GFR (Non-Af Amer) 14.3 BUN/Creatinine Ratio 21.7 H Glucose 92 POC Glucose Calcium 9.1 Phosphorus 6.4 H Total Bilirubin 0.5 AST 10 L ALT 14 Alkaline Phosphatase 158 H Total Protein 7.8 Albumin 2.4 L Globulin 5.4 H Albumin/Globulin Ratio 0.4 L 01/02/19 08:12 WBC RBC Hgb Hct MCV MCH MCHC RDW Std Deviation RDW Coeff of Jarod Plt Count MPV Immature Gran % (Auto) Neut % (Auto) Lymph % (Auto) [place] % (Auto) Eos % (Auto) Baso % (Auto) Immature Gran # (Auto) Neut # (Auto) Lymph # (Auto) [place] # (Auto) Eos # (Auto) Baso # (Auto) APTT PTT Ratio Sodium Potassium Chloride Carbon Dioxide Anion Gap BUN Creatinine Est Cr Clr Drug Dosing Est GFR ( Amer) Est GFR (Non-Af Amer) BUN/Creatinine Ratio Glucose POC Glucose 106 H Calcium Phosphorus Total Bilirubin AST ALT Alkaline Phosphatase Total Protein Albumin Globulin Albumin/Globulin Ratio PG Care Time/CCT Total # of Minutes Spent Total Time Spent with Patient: Total time spent is greater than 50% in coordination of care (as documented) at patient's floor/unit and/or counseling patient: (1) Hypertension Hypertension type: essential hypertension Qualified Code(s): I10 - Essential (primary) hypertension
--- NOTE | 2019-01-02 10:35 | Palliative Care Progress Note ---
Date of Service January 02, 2019 Assessment & Plan (1) Goals of care, counseling/discussion: -Patient continues on Bumex gtt and seems to be diuresing better. He put out over 2L fluid yesterday. -Still on multiple IV abx for his lower extremity skin infections. -Patient subjectively is feeling much better as far as less SOB. -Plan is for home with hospice once medically optimized. -Case management following and will assist with hospice referral. -For SOB, would use Roxanol 5mg PO/SL Q3h PRN pain or SOB. Again, we will hold off on starting this for now so we do not suppress respiratory drive and cause sedation. Patient is not feeling uncomfortable today. -Patient has some achiness in his legs, but no severe pain. (2) Acute and chronic respiratory failure with hypoxia: (3) Acute on chronic diastolic (congestive) heart failure: (4) Chronic kidney disease, stage IV (severe): Subjective No new complaints, no major events over night per the patient. Patient states, "Much better than yesterday," when asked how he is feeling. Review of Systems Review of Systems: Const: + weakness ENMT: No dysphagia Resp: + SOB (but improved from yesterday) Cardio: No chest pain, + BLE edema GI: No abdominal pain, no N/V MS: achiness in legs Neuro: No confusion Psych: No anxiety Physical Exam Constitutional: + ill appearing and + obese ENMT: external ear and nose normal, oropharynx normal Respiratory: Auscultation: + crackles (bases) and + rhonchi Cardiovascular: Rate/Rhythm: + irregularly irregular Extremities: + edema (+3 BLE) Gastrointestinal (Abdomen): Inspection/Auscultation: normal bowel sounds Percussion/Palpation: abdomen soft; abdomen nontender Neurologic: moves all extremities and awake Psychiatric: Orientation: alert and oriented x 3 Insight: good insight Results & Data Vital Signs (Past 12 Hours) Vital Signs Temp Pulse Pulse Pulse Pulse Resp BP 01/02/19 08:00 36.6 C 80 84 22 146/81 H 01/02/19 07:14 81 22 01/02/19 07:00 82 82 21 01/02/19 04:33 36.3 C L 80 18 01/02/19 03:18 78 24 01/02/19 03:17 78 24 01/02/19 01:22 71 01/02/19 00:36 36.4 C L 52 L 18 135/74 01/01/19 23:11 71 22 BP Pulse Ox 01/02/19 08:00 94 01/02/19 07:14 94 01/02/19 07:00 94 01/02/19 04:33 148/87 H 93 01/02/19 03:18 95 01/02/19 03:17 95 01/02/19 01:22 01/02/19 00:36 94 01/01/19 23:11 94 Time Spent Midlevel 35 minutes with >50% of the time spent at bedside with patient and IDT discussing plan of care and discharge planning.
[2019-01-02] MEDS: cefTRIAXone SODIUM 2,000 MG in DEXTROSE 5% 50 ML IV SCH (11:33)
[2019-01-02] MEDS: OXYCODONE/ACETAMINOPHEN 5mg/325mg TAB PO PRN ×2 (11:33→20:34)
--- NOTE | 2019-01-02 11:42 | Hospitalist Progress Note ---
Date of Service January 02, 2019 Assessment & Plan (1) Acute on chronic diastolic (congestive) heart failure: Bumex gtt increased per nephro, given 2.5 mg of metolazone per cardiology rec 01/01 - appears to be better diuresing over the night and today. Continue Low-sodium diet Continue Free fluid restriction to 1200 free water p.o. daily TTE with ejection fraction estimated to be 70%. Right ventricle systolic function is mildly reduced. The left ventricle is severely dilated. The right atrium is severely dilated. There is severe aortic stenosis. There is severe pulmonary hypertension with pulmonary artery pressure of 70 mmHg based on the right atrial pressure of 15 mmHg. Patient requiring 8L NC - bipap as needed Strict I&O - patient has Arnold (2) Acute and chronic respiratory failure with hypoxia: Now requiring 6 - 8L NC (3) COPD (chronic obstructive pulmonary disease): Acute COPD is exacerbated by pulmonary edema and congestive heart failure. Continue Duo nebs every 4 hours scheduled Titrate oxygen as needed to be above 92%. Patient uses O2 at home 2 L 12/09 (4) Bilateral cellulitis of lower leg: Has chronic venostasis with bilateral lower extremities lymphedema. Continue Rocephin and clindamycin 600 mg IV every 8 hours last evening - WBCs resolved Wound provider consulted - recommends Aquacel but no compression wrapping until CHF exacerbation resolved Bilateral lower extremity dopplers negative for PE (5) Ambulatory dysfunction: PT/OT pending (6) Type 2 diabetes mellitus with chronic kidney disease: No current PO or injectable meds SSI PRN A1c 5.3 (7) Anemia: Baseline Hb 9.5-10.5 10.0 on admission Iron 16 - po iron initiated, could give some venofer infusions once fluid balance is a bit better (8) Chronic kidney disease, stage IV (severe): Baseline cr 2.9-3.3 Creat increasing with diuresis Consulted nephro avoid nephrotoxic agents (9) Hypertension: Continue home meds:Bumex gtt, aspirin 81 mg delayed release, continue isosorbide mononitrate 120 mg tablet extended release, continue potassium chloride 10 mEq p.o. every morning, diltiazem increased per cardiology (10) Lymphedema: Appears that PCP was attempting to obtain authorization for home compression pumping. Could consider referral to [facility] for lymphedema at the discharge and home compression pumping. (11) Leg pain, right: Knee XR as noted, uncertain findings and will likely need f/u imaging with possible outpt ortho c/s (12) Obstructive sleep apnea: Uses NC HS - bipap prn (13) Venous stasis dermatitis: Chronic, monitor, as above (14) Atrial fibrillation: resume home eliquis Per cardiology rec changed amlodipine to diltiazem and increased today to 90 mg tid Diltiazem and simvastatin have increased risk for myopathy - hold simvastatin for now (15) Hyperlipidemia: on hold as above (16) Myocardial infarction: Hx of [place] x2, 21 yrs ago and 6 yrs ago Denies stents Aspirin 81mg, every morning, simvastatin on hold (17) Tobacco use disorder: Smokeless tobacco, declines nicotine patch (18) DVT prophylaxis: Anticoagulation as above Dispo: Palliative consulted - patient made DNR. Would like to continue treatment to increase comfort and will possibly dc with hospice. He does not want dialysis Subjective Mr. Schreiber reports feeling that he is breathing a bit better. No further bloody sputum. Mild but tolerable pain in his lower extremities ROS Constitutional: no chills, aches, sweats or fever Respiratory: no sob,cough, sputum, or wheezing Cardiac: no chest pain, palpitations, edema, orthopnea or lightheadedness GI: no abdominal pain, nausea, vomiting, diarrhea or constipation : no dysuria or hesitancy Extremities: no joint pain or weakness Skin: no rash All other systems reviewed and negative Physical Exam Physical Exam: General: no distress Eyes: normal inspection, PERLL Respiratory: chest non tender, clear to auscultation, normal breath sounds, no respiratory distress, no accessory muscle use Cardiac: regular rate and rhythm, no rub or gallop, no murmur, +1 pitting edema, no jvd GI/: active bowel sounds, no abd pain or tenderness, soft, non distended Extremities: normal range of motion, normal strength, non tender Neuro/Psych: alert and oriented x 3, normal mood and affect Skin: normal color, dry, erythema lower with weeping and venous stasis skin thickening Results & Data Vital Signs (Past 12 Hours) Vital Signs Temp Pulse Pulse Pulse Pulse Resp BP 01/02/19 11:06 73 20 01/02/19 08:00 36.6 C 80 84 22 146/81 H 01/02/19 07:14 81 22 01/02/19 07:00 82 82 21 01/02/19 04:33 36.3 C L 80 18 01/02/19 03:18 78 24 01/02/19 03:17 78 24 01/02/19 01:22 71 01/02/19 00:36 36.4 C L 52 L 18 135/74 BP Pulse Ox 01/02/19 11:06 92 01/02/19 08:00 94 01/02/19 07:14 94 01/02/19 07:00 94 01/02/19 04:33 148/87 H 93 01/02/19 03:18 95 01/02/19 03:17 95 01/02/19 01:22 01/02/19 00:36 94 PG Care Time/CCT Total # of Minutes Spent Total Time Spent with Patient: Total time spent is greater than 50% in coordination of care (as documented) at patient's floor/unit and/or counseling patient: (1) Hypertension Hypertension type: essential hypertension Qualified Code(s): I10 - Essential (primary) hypertension (2) Hyperlipidemia Hyperlipidemia type: other hyperlipidemia Qualified Code(s): E78.49 - Other hyperlipidemia; E78.4 - Other hyperlipidemia
[2019-01-03] MEDS: CLINDAMYCIN 600 MG in DEXTROSE 5% 50 ML IV SCH ×3 (00:07→15:57)
[2019-01-03] MEDS: ALBUT/IPRATROP 3MG/0.5MG NEB 3 ML VIAL NEB SCH ×6 (02:04→23:15)
[2019-01-03] MEDS: BUMETANIDE 10 MG in DEXTROSE 5% 10 ML IV SCH ×2 (04:35→15:53)
[2019-01-03 07:33] LABS: Partial Thromboplastin Ratio 1.3; Partial Thromboplastin Time 33.9 Seconds (21.0-31.0)
[2019-01-03 07:58] LABS: Albumin Level 2.4 gm/dl (3.4-5.0); BUN Creatinine Ratio 22.6 (10-20); Creatinine Clr Calc Pharmacy 18.7 ml/min; Phosphorus 7.4 mg/dl (2.5-4.9); Potassium 3.8 mmol/L (3.5-5.1)
[2019-01-03] MEDS: ISOSORBIDE MONO EXTENDED REL 60 MG TABCR PO SCH (09:13)
[2019-01-03] MEDS: LACTOBACILLUS ACIDOPHILUS (FLORANEX) TAB PO SCH ×4 (09:13→20:14)
[2019-01-03] MEDS: APIXABAN 2.5 MG TAB PO SCH ×2 (09:14→20:16)
[2019-01-03] MEDS: POTASSIUM CHLORIDE 10 MEQ TABCR PO SCH (09:14)
[2019-01-03] MEDS: dilTIAZem HCl 60 MG TAB PO SCH ×3 (09:14→20:15)
[2019-01-03] MEDS: FERROUS SULFATE 325 MG TAB PO SCH ×2 (09:15→17:19)
[2019-01-03] MEDS: ASPIRIN 81 MG ECTAB PO SCH (09:15)
[2019-01-03] MEDS: BUDESONIDE/FORMOTEROL FUMARATE 80/4.5 60 PUFFS/INHALER INH SCH ×2 (09:15→20:17)
[2019-01-03] MEDS: TRIAMCINOLONE ACET 0.1% OINT 15 GM TUBE TOP SCH ×2 (09:16→20:17)
[2019-01-03] MEDS: INSULIN ASPART 100 UNITS/ML 3 ML PEN SC SCH ×4 (09:18→21:31)
[2019-01-03] MEDS: cefTRIAXone SODIUM 2,000 MG in DEXTROSE 5% 50 ML IV SCH (12:05)
--- NOTE | 2019-01-03 12:15 | Nephrology Progress Note ---
Date of Service January 03, 2019 Assessment & Plan (1) Acute diastolic heart failure: (2) JOSE (obstructive sleep apnea): (3) Type 2 diabetes mellitus with chronic kidney disease: (4) Anemia: (5) Aortic stenosis: (6) Chronic kidney disease, stage IV (severe): Patient remains in decompensated congestive heart failure secondary to advanced renal impairment. He has refused dialysis. Urine output improved with Bumex gtt along with combination diuretic therapy. Once the patient's volume status is felt to be acceptable, Bumex strip can be stopped. Will transition to intermittent oral Bumex. Breathing seems to have improved. Unfortunately kidney function is worsening. Overall prognosis remains guarded. However, the patient is comfortable and palliative goals of care are being met. (7) Hypertension: (8) Lymphedema: (9) Venous stasis dermatitis: Subjective No acute events overnight. Oswaldo was more lethargic when I saw him this morning. He denies significant dyspnea. He stated his goal is to be home for dinner. He reiterated desire to go home with hospice. Review of Systems Review of Systems: All systems reviewed & are unremarkable except as noted in HPI & below Physical Exam Constitutional: + ill appearing and + frail appearing Eyes: no scleral abnormality and no corneal abnormality ENMT: Mouth: + dry oral mucous membranes; no oral mucosal abnormality Neck: normal visual inspection and trachea midline Respiratory: + labored breathing Auscultation: + rales Cardiovascular: Rate/Rhythm: regular rate Heart Sounds: normal S1 and normal S2 Extremities: + edema Gastrointestinal (Abdomen): Percussion/Palpation: abdomen nontender Musculoskeletal: Extremities: no cyanosis and no clubbing Skin: normal turgor; no lesions Neurologic: Motor/Sensory: no tremor and no asterixis Psychiatric: Orientation: alert and oriented x 3 Results & Data Vital Signs (Past 12 Hours) Vital Signs Temp Pulse Pulse Pulse Resp BP BP 01/03/19 11:49 36.6 C 66 14 138/75 01/03/19 11:21 66 16 01/03/19 07:48 75 18 133/75 01/03/19 07:28 60 01/03/19 07:00 64 64 15 01/03/19 04:00 35.9 C L 73 20 151/75 H 01/03/19 03:29 68 15 01/03/19 03:20 01/03/19 03:10 01/03/19 02:05 66 66 17 01/03/19 01:38 71 Pulse Ox 01/03/19 11:49 95 01/03/19 11:21 95 01/03/19 07:48 97 01/03/19 07:28 01/03/19 07:00 100 01/03/19 04:00 97 01/03/19 03:29 96 01/03/19 03:20 92 01/03/19 03:10 75 L 01/03/19 02:05 98 01/03/19 01:38 PG Care Time/CCT Total # of Minutes Spent Total Time Spent with Patient: Total time spent is greater than 50% in coordination of care (as documented) at patient's floor/unit and/or counseling patient: (1) Hypertension Hypertension type: essential hypertension Qualified Code(s): I10 - Essential (primary) hypertension
--- NOTE | 2019-01-03 15:58 | Hospitalist Progress Note ---
Date of Service January 03, 2019 Assessment & Plan (1) Acute on chronic diastolic (congestive) heart failure: Bumex gtt per nephro, given 7.5 mg of metolazone over the last two days - diuresing fairly well but creatinine rising which will have to be tolerated for now as oxygen needs continue to remain quite high. Continue Low-sodium diet Continue Free fluid restriction to 1200 free water p.o. daily TTE with ejection fraction estimated to be 70%. Right ventricle systolic function is mildly reduced. The left ventricle is severely dilated. The right atrium is severely dilated. There is severe aortic stenosis. There is severe pulmonary hypertension with pulmonary artery pressure of 70 mmHg based on the right atrial pressure of 15 mmHg. Patient requiring 10L NC - bipap as needed Strict I&O - patient has Arnold (2) Acute and chronic respiratory failure with hypoxia: Now requiring 8-10L NC (3) COPD (chronic obstructive pulmonary disease): Acute COPD is exacerbated by pulmonary edema and congestive heart failure. Continue Duo nebs every 4 hours scheduled Titrate oxygen as needed to be above 92%. Patient uses O2 at home 2 L 12/09 (4) Bilateral cellulitis of lower leg: Has chronic venostasis with bilateral lower extremities lymphedema. Continue Rocephin and clindamycin 600 mg IV every 8 hours last evening - WBCs resolved Wound provider consulted - recommends Aquacel but no compression wrapping until CHF exacerbation resolved Bilateral lower extremity dopplers negative for PE (5) Ambulatory dysfunction: PT/OT dc'd due to palliative care focus (6) Type 2 diabetes mellitus with chronic kidney disease: No current PO or injectable meds SSI PRN A1c 5.3 (7) Anemia: Baseline Hb 9.5-10.5 10.0 on admission Iron 16 - po iron initiated, could give some venofer infusions once fluid balance is a bit better (8) Chronic kidney disease, stage IV (severe): Baseline cr 2.9-3.3 Creat increasing with diuresis - now above 4 Consulted nephro avoid nephrotoxic agents (9) Hypertension: Continue home meds:Bumex gtt, aspirin 81 mg delayed release, continue isosorbide mononitrate 120 mg tablet extended release, continue potassium chloride 10 mEq p.o. every morning, diltiazem increased per cardiology (10) Lymphedema: Appears that PCP was attempting to obtain authorization for home compression pumping. Could consider referral to [place] [facility] therapy for lymphedema at the discharge and home compression pumping. (11) Leg pain, right: Knee XR as noted, uncertain findings and will likely need f/u imaging with possible outpt ortho c/s (12) Obstructive sleep apnea: Uses NC HS - bipap prn (13) Venous stasis dermatitis: Chronic, monitor, as above (14) Atrial fibrillation: resume home eliquis Per cardiology rec changed amlodipine to diltiazem- now 90 mg tid - rate improved Diltiazem and simvastatin have increased risk for myopathy - hold simvastatin for now (15) Hyperlipidemia: on hold as above (16) Myocardial infarction: Hx of [place] x2, 21 yrs ago and 6 yrs ago Denies stents Aspirin 81mg, every morning, simvastatin on hold (17) Tobacco use disorder: Smokeless tobacco, declines nicotine patch (18) DVT prophylaxis: Anticoagulation as above Dispo: Palliative consulted - patient made DNR. Would like to continue treatment to increase comfort and will possibly dc with hospice. He does not want dialysis Subjective Mr. Schreiber is in better spirits today. He continues to require high amounts of oxygen - on 10L NC today. His pain is tolerable. ROS Constitutional: no chills, aches, sweats or fever Respiratory: no sob,cough, sputum, or wheezing Cardiac: no chest pain, palpitations, edema, orthopnea or lightheadedness GI: no abdominal pain, nausea, vomiting, diarrhea or constipation : no dysuria or hesitancy Extremities: no joint pain or weakness Skin: no rash All other systems reviewed and negative Physical Exam Physical Exam: General: no distress Eyes: normal inspection, PERLL Respiratory: chest non tender, course lungs bilaterally, no respiratory distress, no accessory muscle use Cardiac: regular rate and rhythm, no rub or gallop, no murmur, no edema, no jvd GI/: active bowel sounds, no abd pain or tenderness, soft, non distended Extremities: normal range of motion, normal strength, non tender Neuro/Psych: alert and oriented x 3, normal mood and affect Skin: normal color, dry Results & Data Vital Signs (Past 12 Hours) Vital Signs Temp Pulse Pulse Pulse Resp BP BP 01/03/19 15:37 55 L 01/03/19 15:28 81 22 01/03/19 11:49 36.6 C 66 14 138/75 01/03/19 11:21 66 16 01/03/19 07:48 75 18 133/75 01/03/19 07:28 60 01/03/19 07:00 64 64 15 01/03/19 04:00 35.9 C L 73 20 151/75 H Pulse Ox 01/03/19 15:37 01/03/19 15:28 92 01/03/19 11:49 95 01/03/19 11:21 95 01/03/19 07:48 97 01/03/19 07:28 01/03/19 07:00 100 01/03/19 04:00 97 PG Care Time/CCT Total # of Minutes Spent Total Time Spent with Patient: Total time spent is greater than 50% in coordination of care (as documented) at patient's floor/unit and/or counseling patient: (1) Hyperlipidemia Hyperlipidemia type: other hyperlipidemia Qualified Code(s): E78.49 - Other hyperlipidemia; E78.4 - Other hyperlipidemia (2) Hypertension Hypertension type: essential hypertension Qualified Code(s): I10 - Essential (primary) hypertension
[2019-01-03] MEDS: OXYCODONE/ACETAMINOPHEN 5mg/325mg TAB PO PRN (17:18)
[2019-01-03] MEDS: BUMETANIDE 1 MG TAB PO SCH (18:25)
[2019-01-04] MEDS: CLINDAMYCIN 600 MG in DEXTROSE 5% 50 ML IV SCH ×4 (00:34→23:40)
[2019-01-04] MEDS: ALBUT/IPRATROP 3MG/0.5MG NEB 3 ML VIAL NEB SCH ×6 (03:22→23:17)
[2019-01-04 07:04] LABS: Hematocrit (blood only) 29.9 % (42-52); Hemoglobin 9.3 g/dL (14.0-18.0); Mean Corpuscular Hemoglobin 27.5 pg (25-34); Mean Corpuscular Hgb Conc 31.1 g/dL (32-36); Mean Corpuscular Volume 88.5 fL (80-100); Mean Platelet Volume 8.2 fL (7.4-10.4); Platelet Count 210 K/uL (130-400); RDW Standard Deviation 55.4 fL (36.4-46.3); Red Blood Count 3.38 M/uL (4.7-6.1); White Blood Count 8.47 K/uL (4.8-10.8)
[2019-01-04 07:14] LABS: Partial Thromboplastin Ratio 1.3; Partial Thromboplastin Time 33.9 Seconds (21.0-31.0)
[2019-01-04] MEDS: BUDESONIDE/FORMOTEROL FUMARATE 80/4.5 60 PUFFS/INHALER INH SCH ×2 (08:35→21:03)
[2019-01-04] MEDS: TRIAMCINOLONE ACET 0.1% OINT 15 GM TUBE TOP SCH ×2 (08:35→21:03)
[2019-01-04] MEDS: dilTIAZem HCl 60 MG TAB PO SCH ×3 (08:36→21:02)
[2019-01-04] MEDS: LACTOBACILLUS ACIDOPHILUS (FLORANEX) TAB PO SCH ×4 (08:36→21:02)
[2019-01-04] MEDS: ASPIRIN 81 MG ECTAB PO SCH (08:36)
[2019-01-04] MEDS: ISOSORBIDE MONO EXTENDED REL 60 MG TABCR PO SCH (08:36)
[2019-01-04] MEDS: INSULIN ASPART 100 UNITS/ML 3 ML PEN SC SCH ×4 (08:37→21:03)
[2019-01-04] MEDS: APIXABAN 2.5 MG TAB PO SCH ×2 (08:37→21:02)
[2019-01-04] MEDS: BUMETANIDE 1 MG TAB PO SCH ×3 (08:37→16:36)
[2019-01-04] MEDS: FERROUS SULFATE 325 MG TAB PO SCH ×2 (08:37→16:36)
[2019-01-04] MEDS: POTASSIUM CHLORIDE 10 MEQ TABCR PO SCH (08:38)
--- NOTE | 2019-01-04 09:52 | Palliative Care Progress Note ---
Date of Service January 04, 2019 Assessment & Plan (1) Goals of care, counseling/discussion: -Patient now on Bumex 2mg PO TID. Has diuresed well. His oxygen requirements, however, continue to be high at 10LPM mask. I did decrease his oxygen to 8LPM and visited room several times to be sure he was comfortable. His oxygen saturation remained the same at 89-93%. He states his breathing feels much better. He does prefer the mask over nasal cannula due to NC drying his nose out. -While patient is feeling better as far as SOB, he is weaker and drowsier. He is anxious to get home and is more than ready to leave hospital. -Plan is for home with hospice-- family did choose agency today and equipment is ordered. Possible discharge tomorrow. -Upon discharge, please order Roxanol 5mg PO/SL Q3h PRN pain or SOB and be sure patient's family has this IN HAND prior to discharge. -Please contact us with any further palliative care needs. (2) Acute and chronic respiratory failure with hypoxia: (3) Acute on chronic diastolic (congestive) heart failure: (4) Chronic kidney disease, stage IV (severe): Subjective Patient feels less SOB. Is more drowsy/lethargic. Review of Systems Review of Systems: + SOB at times, but much improved. Denies pain, N/V, or other discomforts. Physical Exam Constitutional: + ill appearing and + obese ENMT: external ear and nose normal, oropharynx normal Respiratory: + labored breathing Auscultation: + crackles (bases) and + rhonchi Cardiovascular: Rate/Rhythm: + irregularly irregular Extremities: + edema (+3 BLE) Gastrointestinal (Abdomen): Inspection/Auscultation: normal bowel sounds Percussion/Palpation: abdomen soft; abdomen nontender Neurologic: moves all extremities and awake Psychiatric: Orientation: oriented x 3 Results & Data Vital Signs (Past 12 Hours) Vital Signs Temp Pulse Pulse Resp BP Pulse Ox 01/04/19 08:05 36.6 C 71 18 128/82 94 01/04/19 07:24 75 01/04/19 06:56 72 18 90 01/04/19 04:00 36.5 C 86 20 134/79 93 01/04/19 03:23 75 18 92 01/04/19 00:30 71 01/03/19 23:50 36.4 C L 71 20 131/70 92 01/03/19 23:16 79 16 94 Time Spent Midlevel 40 minutes with >50% of the time spent at bedside with patient discussing plan of care as well as collaborating with attending provider and case management to coordinate care.
--- NOTE | 2019-01-04 10:00 | Nephrology Progress Note ---
Date of Service January 04, 2019 Assessment & Plan (1) Acute diastolic heart failure: Improvement noted with Bumex gtt. Gtt discontinue yesterday after 3 days. Converted to Bumex 2 mg PO TID. I/O's are being documented. (2) JOSE (obstructive sleep apnea): (3) Type 2 diabetes mellitus with chronic kidney disease: (4) Anemia: Hemoglobin stable. No signs of active bleeding. (5) Aortic stenosis: (6) Chronic kidney disease, stage IV (severe): Acute progression consistent with advancement to ESRD. Patient has refused dialysis. Goals of care are palliative. (7) Hypertension: (8) Lymphedema: (9) Venous stasis dermatitis: Subjective No acute events overnight. Oswaldo was lethargic this morning. He states that he feels well and denies dyspnea. He reiterated a desire to go home. Review of Systems Review of Systems: All systems reviewed & are unremarkable except as noted in HPI & below Physical Exam Constitutional: + ill appearing and + frail appearing Eyes: no scleral abnormality and no corneal abnormality ENMT: Mouth: + dry oral mucous membranes; no oral mucosal abnormality Neck: normal visual inspection and trachea midline Respiratory: + labored breathing Auscultation: + rales Cardiovascular: Rate/Rhythm: regular rate Heart Sounds: normal S1 and normal S2 Extremities: + edema Gastrointestinal (Abdomen): Inspection/Auscultation: + abdomen distended Percussion/Palpation: abdomen nontender Musculoskeletal: Extremities: no cyanosis and no clubbing Skin: normal turgor; no lesions Neurologic: Motor/Sensory: no tremor and no asterixis Psychiatric: Orientation: alert and oriented x 3 Results & Data Vital Signs (Past 12 Hours) Vital Signs Temp Pulse Pulse Resp BP Pulse Ox 01/04/19 08:05 36.6 C 71 18 128/82 94 01/04/19 07:24 75 01/04/19 06:56 72 18 90 01/04/19 04:00 36.5 C 86 20 134/79 93 01/04/19 03:23 75 18 92 01/04/19 00:30 71 01/03/19 23:50 36.4 C L 71 20 131/70 92 01/03/19 23:16 79 16 94 Laboratory Results Laboratory Results - last 24 hr 01/03/19 01/03/19 01/03/19 11:29 16:30 20:56 WBC RBC Hgb Hct MCV MCH MCHC RDW Std Deviation RDW Coeff of Jarod Plt Count MPV APTT PTT Ratio POC Glucose 101 H 102 H 132 H 01/04/19 01/04/19 01/04/19 06:48 06:48 07:41 WBC 8.47 RBC 3.38 L Hgb 9.3 L Hct 29.9 L MCV 88.5 MCH 27.5 MCHC 31.1 L RDW Std Deviation 55.4 H RDW Coeff of Jarod 17.0 H Plt Count 210 MPV 8.2 APTT 33.9 H PTT Ratio 1.3 POC Glucose 107 H PG Care Time/CCT Total # of Minutes Spent Total Time Spent with Patient: Total time spent is greater than 50% in coordination of care (as documented) at patient's floor/unit and/or counseling patient: (1) Hypertension Hypertension type: essential hypertension Qualified Code(s): I10 - Essential (primary) hypertension
[2019-01-04] MEDS: cefTRIAXone SODIUM 2,000 MG in DEXTROSE 5% 50 ML IV SCH (11:37)
--- NOTE | 2019-01-04 16:51 | Hospitalist Progress Note ---
Date of Service January 04, 2019 Assessment & Plan (1) Acute on chronic diastolic (congestive) heart failure: Bumex gtt discontinued after 3 days and now on po Bumex TID Continue Low-sodium diet Discontinue Free fluid restriction for comfort TTE with ejection fraction estimated to be 70%. Right ventricle systolic function is mildly reduced. The left ventricle is severely dilated. The right atrium is severely dilated. There is severe aortic stenosis. There is severe pulmonary hypertension with pulmonary artery pressure of 70 mmHg based on the right atrial pressure of 15 mmHg. Patient requiring 11L NC - bipap as needed Patient has Arnold (2) Acute and chronic respiratory failure with hypoxia: Now requiring 8-10L NC (3) COPD (chronic obstructive pulmonary disease): Acute COPD is exacerbated by pulmonary edema and congestive heart failure. Continue Duo nebs every 4 hours scheduled Titrate oxygen to patient comfort. Patient uses O2 at home 2 L 12/09 (4) Bilateral cellulitis of lower leg: Has chronic venostasis with bilateral lower extremities lymphedema. Continue Rocephin and clindamycin 600 mg IV every 8 hours last evening - WBCs r esolved Wound provider consulted - recommends Aquacel but no compression wrapping until CHF exacerbation resolved Bilateral lower extremity dopplers negative for PE (5) Ambulatory dysfunction: PT/OT dc'd due to palliative care focus (6) Type 2 diabetes mellitus with chronic kidney disease: No current PO or injectable meds SSI PRN A1c 5.3 (7) Anemia: Baseline Hb 9.5-10.5 10.0 on admission Iron 16 - po iron initiated (8) Chronic kidney disease, stage IV (severe): Baseline cr 2.9-3.3 Creat increasing with diuresis - now above 4 Consulted nephro avoid nephrotoxic agents (9) Hypertension: Continue Bumex, aspirin 81 mg delayed release, continue isosorbide mononitrate 120 mg tablet extended release, continue potassium chloride 10 mEq p.o. every morning, diltiazem increased per cardiology (10) Lymphedema: Appears that PCP was attempting to obtain authorization for home compression pumping. Could consider referral to [facility] for lymphedema at the discharge and home compression pumping. (11) Leg pain, right: Pain control (12) Obstructive sleep apnea: Uses NC HS - bipap prn (13) Venous stasis dermatitis: Chronic, monitor, as above (14) Atrial fibrillation: resumed home eliquis Per cardiology rec changed amlodipine to diltiazem- now 90 mg tid - rate improved Diltiazem and simvastatin have increased risk for myopathy - hold simvastatin for now (15) Hyperlipidemia: on hold as above (16) Myocardial infarction: Hx of [place] x2, 21 yrs ago and 6 yrs ago Denies stents Aspirin 81mg, every morning, simvastatin on hold (17) Tobacco use disorder: Smokeless tobacco, declines nicotine patch (18) DVT prophylaxis: Anticoagulation as above Dispo: Palliative consulted - patient made DNR. Would like to continue treatment to increase comfort and will dc with hospice. Will discharge once hospice is in place with equipment set up in the home. Subjective Mr. Schreiber is more lethargic today. He denies any discomfort. His saturations have been decreasing somewhat while still requiring high amounts of supplemental oxygen. He denies any pain. Physical Exam Physical Exam: General: no distress Eyes: normal inspection, PERLL Respiratory: chest non tender, clear to auscultation, normal breath sounds, no respiratory distress, no accessory muscle use Cardiac: regular rate and rhythm, no rub or gallop, no murmur, bilateral lower extremity edema GI/: active bowel sounds, no abd pain or tenderness, soft, non distended Extremities: normal range of motion, normal strength, non tender Neuro/Psych: alert and oriented x 3, normal mood and affect Skin: normal color, dry, lower leg erythema improving Results & Data Vital Signs (Past 12 Hours) Vital Signs Temp Pulse Pulse Resp BP Pulse Ox 01/04/19 16:14 36.3 C L 72 147/72 H 84 L 01/04/19 15:23 71 16 89 L 01/04/19 11:34 37.0 C 81 18 126/76 94 01/04/19 11:03 71 16 94 01/04/19 08:05 36.6 C 71 18 128/82 94 01/04/19 07:24 75 01/04/19 06:56 72 18 90 PG Care Time/CCT Total # of Minutes Spent Total Time Spent with Patient: Total time spent is greater than 50% in coordination of care (as documented) at patient's floor/unit and/or counseling patient: (1) Hypertension Hypertension type: essential hypertension Qualified Code(s): I10 - Essential (primary) hypertension (2) Hyperlipidemia Hyperlipidemia type: other hyperlipidemia Qualified Code(s): E78.49 - Other hyperlipidemia; E78.4 - Other hyperlipidemia
[2019-01-04] MEDS ORDERED: MoRPHine SULFATE 5 MG/0.25 ML UDP PO PRN (19:35)
[2019-01-05] MEDS ORDERED: LORazepam 1 MG/2 ML VIAL IV STA (01:41)
[2019-01-05] MEDS: ALBUT/IPRATROP 3MG/0.5MG NEB 3 ML VIAL NEB SCH ×3 (03:35→11:27)
[2019-01-05] MEDS: LORazepam 0.5 MG/1 ML VIAL IV PRN ×2 (03:55→11:17)
[2019-01-05] MEDS: CLINDAMYCIN 600 MG in DEXTROSE 5% 50 ML IV SCH (08:28)
[2019-01-05 08:42] LABS: Partial Thromboplastin Ratio 1.3; Partial Thromboplastin Time 35.3 Seconds (21.0-31.0)
[2019-01-05] MEDS: INSULIN ASPART 100 UNITS/ML 3 ML PEN SC SCH (09:33)
[2019-01-05] MEDS: BUMETANIDE 1 MG TAB PO SCH (09:36)
[2019-01-05] MEDS: ASPIRIN 81 MG ECTAB PO SCH (09:37)
[2019-01-05] MEDS: LACTOBACILLUS ACIDOPHILUS (FLORANEX) TAB PO SCH (09:37)
[2019-01-05] MEDS: APIXABAN 2.5 MG TAB PO SCH (09:37)
[2019-01-05] MEDS: dilTIAZem HCl 60 MG TAB PO SCH (09:37)
[2019-01-05] MEDS: FERROUS SULFATE 325 MG TAB PO SCH (09:37)
[2019-01-05] MEDS: ISOSORBIDE MONO EXTENDED REL 60 MG TABCR PO SCH (09:38)
[2019-01-05] MEDS: POTASSIUM CHLORIDE 10 MEQ TABCR PO SCH (09:38)
[2019-01-05] MEDS: TRIAMCINOLONE ACET 0.1% OINT 15 GM TUBE TOP SCH (09:46)
[2019-01-05] MEDS: BUDESONIDE/FORMOTEROL FUMARATE 80/4.5 60 PUFFS/INHALER INH SCH (09:47)
--- NOTE | 2019-01-05 13:07 | Discharge Summary ---
Date of Service January 05, 2019 Admission HPI Per Admitting Provider 78 y/o M c/o LE pain, redness, and swelling. Per pt and family, pt always has some amount of b/l LE redness, swelling, and pain, however over the last week it has started to increase. It has been so much worse that he has not been able to ambulate at all the last 3-4 days. Pt has b/l regions of open ulceration and weeping, which is also not typical for him. He also has swelling into the thighs, which is new. He also notes a new pain in the lateral R knee. Pt has fallen in the past, but not in the last few months. He can pickle sorter his L LE a bit, but cannot pickle sorter the R at all. Pt has increased SOB. He wears his O2 most of the time, but not if he is walking around due to issues carrying the portable tank. Pt denies fever, chest pain, abd pain, n/v. Pt had an episode of diarrhea last week, but bowel movements have been normal since. He is eating without issue. Pt was to have a routine f/u with Dr. Baez on 12/31. Principal Diagnosis CHF Discharge Exam Constitutional + ill appearing Respiratory + labored breathing Auscultation: + rhonchi and + wheezes Cardiovascular Rate/Rhythm: regular rate and regular rhythm Heart Sounds: + murmur Gastrointestinal (Abdomen) Inspection/Auscultation: normal bowel sounds; abdomen not distended Percussion/Palpation: abdomen soft; abdomen nontender Musculoskeletal generalized weakness Skin + pallor improved erythema lower extremities Neurologic moves all extremities and awake Psychiatric A+Ox3, euthymic affect Discharge Data Allergies Allergy/AdvReac Type Severity Reaction Status Date / Time No Known Allergies Allergy Unverified 12/29/18 12:53 Consultations 12/29/18 13:53 ED Decision to Admit Stat 12/29/18 16:34 Consult Case Management - Discharge Planning Routine 12/30/18 16:39 Consult Wound Care Provider Routine 12/30/18 17:45 Consult Nephrology Routine 12/30/18 17:48 Consult Cardiology Routine 12/31/18 18:14 Consult Palliative Care Routine Ordered Studies 12/30/18 17:24 US venous doppler LE BI Routine Hospital Course (1) Acute on chronic diastolic (congestive) heart failure: Bumex gtt discontinued after 3 days and now on po Bumex TID Continue Low-sodium diet Discontinue Free fluid restriction for comfort TTE with ejection fraction estimated to be 70%. Right ventricle systolic function is mildly reduced. The left ventricle is severely dilated. The right atrium is severely dilated. There is severe aortic stenosis. There is severe pulmonary hypertension with pulmonary artery pressure of 70 mmHg based on the right atrial pressure of 15 mmHg. Patient requiring 15L mask - discussed with family that 10L was max available for transport. They felt that his comfort was the main concern and he was adamant about going home. I also discussed with them the possibility that he will en route to home as he was unstable with his respiratory status. They were ok with this risk as their biggest priority was to try and get him home and out of the hospital. Patient self discontinued isidro overnight, refusing bipap, wishes to go home. (2) Acute and chronic respiratory failure with hypoxia: Now requiring 8-10L NC (3) COPD (chronic obstructive pulmonary disease): Acute COPD is exacerbated by pulmonary edema and congestive heart failure. Duo nebs every 4 hours scheduled while inpatient Titrate oxygen to patient comfort. Patient uses O2 at home 2 L 12/09 (4) Bilateral cellulitis of lower leg: Has chronic venostasis with bilateral lower extremities lymphedema. Continue Rocephin and clindamycin 600 mg IV every 8 hours last evening - WBCs resolved - received 7 days of Rocephin and 6 days of clindamycin - will discontinue for home as patient is going home on hospice. Wound provider consulted - recommends Aquacel but no compression wrapping until CHF exacerbation resolved Bilateral lower extremity dopplers negative for PE (5) Ambulatory dysfunction: PT/OT dc'd due to palliative care focus (6) Type 2 diabetes mellitus with chronic kidney disease: No current PO or injectable meds SSI PRN A1c 5.3 (7) Anemia: Baseline Hb 9.5-10.5 10.0 on admission Iron 16 - po iron replacement given (8) Chronic kidney disease, stage IV (severe): Baseline cr 2.9-3.3 Creat increasing with diuresis - now above 4 Consulted nephro Patient does not want dialysis (9) Hypertension: Continue Bumex, aspirin 81 mg delayed release, continue isosorbide mononitrate 120 mg tablet extended release, continue potassium chloride 10 mEq p.o. every morning, diltiazem increased per cardiology (10) Lymphedema: (11) Leg pain, right: Pain control (12) Obstructive sleep apnea: Refusing bipap at this point, continue supplemental O2 (13) Venous stasis dermatitis: Chronic, monitor, as above (14) Atrial fibrillation: resumed home eliquis Per cardiology rec changed amlodipine to diltiazem- now 90 mg tid - rate improved Diltiazem and simvastatin have increased risk for myopathy - dc'd simvastatin (15) Hyperlipidemia: statin on hold as above (16) Myocardial infarction: Hx of [place] x2, 21 yrs ago and 6 yrs ago Denies stents Aspirin 81mg, every morning, simvastatin on hold (17) Tobacco use disorder: Smokeless tobacco, declines nicotine patch (18) DVT prophylaxis: Anticoagulation as above Dispo: Palliative consulted - patient made DNR. Discharged to home on hospice. Total Time Total Time Spent Total Time Spent (In Minutes): greater trisha 30 minutes Discharge Plan Discharge Items Patient Disposition: Hospice - Home Reason For Visit: LE EDEMA, CELLULITIS Discharge Diagnosis: Congestive heart failure, cellulitis Activity: Resume your previous activity Non-emergency contact: Primary Care Provider Call non-emergency contact if: your symptoms worsen Follow-up/Referrals: Umang Rzizo III, MD [Primary Care Provider] - Diet: Regular Addtl Attending Provider Instructions: You will go home with prescriptions for lorazepam and Roxanol (morphine). The lorazepam can be taken for anxiety or agitation. The morphine can be used for pain or feeling short of breath. Hospice will contact you for their first visit. Pending Studies at Discharge: No Stand-Alone Forms: My [facility] Medications and DC Order Prescriptions: New bumetanide 1 mg Tablet 2 mg PO TIDM Qty: 21 RF: 1 diltiazem HCl 60 mg Tablet 90 mg PO TID Qty: 21 RF: 1 lorazepam 0.5 mg tablet 0.5 mg PO TID Qty: 10 RF: 0 morphine concentrate 100 mg/5 mL (20 mg/mL) Solution 5 mg PO Q3H PRN (Reason: pain) Qty: 15 RF: 0 Continued triamcinolone acetonide 0.1 % ointment 1 appln TOP BID Qty: 80 RF: 2 acetaminophen 500 mg tablet 500 mg PO Q6H PRN (Reason: Pain) RF: 0 amlodipine 5 mg tablet 5 mg PO QAM Qty: 30 RF: 0 ergocalciferol (vitamin D2) 50,000 unit capsule 50,000 units PO MONTHLY RF: 0 isosorbide mononitrate 120 mg tablet extended release 24 hr 120 mg PO QAM Qty: 90 RF: 0 torsemide 20 mg tablet 40 mg PO BID Qty: 120 RF: 0 Eliquis 2.5 mg tablet 2.5 mg PO BID Qty: 60 RF: 2 (DME) Oxygen Home Liters Per Minute See Dose Instructions .ROUTE .MEDSUPPLY Qty: 1 RF: 0 aspirin 81 mg tablet,delayed release (DR/EC) 81 mg PO QAM RF: 0 albuterol sulfate 2.5 mg /3 mL (0.083 %) solution for nebulization 2.5 mg inhalation Q4H PRN (Reason: Shortness Of Breath Or Wheezing) RF: 0 iron 18 mg Tablet 18 mg PO QAM RF: 0 potassium chloride 10 mEq tablet extended release 10 meq PO QAM RF: 0 albuterol sulfate [Ventolin HFA] 90 mcg/actuation HFA aerosol inhaler 2 puffs INH Q4H PRN (Reason: Shortness Of Breath Or Wheezing) RF: 0 Breo Ellipta 100-25 mcg/dose blister with device 1 puffs INH QAM RF: 0 Discontinued simvastatin 20 mg tablet 20 mg PO QAM Qty: 30 RF: 0 Discharge Orders: Discharge Order (Routine); Ordered 01/05/19 Ordered By: Laura Castañeda Admission Data Admit Date/Time: 12/29/18 14:39 Attending Provider: Luis Hayward Admit Provider: Selin Sol Primary Care Provider: Umang Rizzo III Other Providers: Wild Jacobs ; Clarissa Mistry Jason D ; Damaris Carl ; Luis Hayward Other Interventions: Discharge Summary Assessment (RN) Last Done: 01/05/19 10:27 DC Date/Time DO NOT enter until pt leaves facility: 01/05/19 12:13
== END 2019-01-05 12:13 | disposition hospice, home (50) | DRG 291 ==
LOC: ED 11:34 → SUATTDRO 14:39 → 2N 14:39